=== PATIENT | female | born 2000 | race Caucasian/White ===

== ENCOUNTER 2022-12-01 22:05 | Emergency (ER) | payer MEDICARE, MEDICAID, SELFPAY ==
--- NOTE | ~2022-12-01 | CT_ITS ---
EXAMINATION: CT abdomen pelvis wo con DATE: 12/01/2022 22:57 INDICATION: Right flank pain TECHNIQUE: Computed tomography (CT) of the abdomen and pelvis was performed without intravenous contr ast. The dose-length product (DLP) was 1584.73 mGy-cm. Automated exposure control and iterative recon struction technique were employed. COMPARISON: None FINDINGS: Minimal dependent atelectasis is present in the lung bases. The heart size is normal. The l iver, spleen, pancreas, gallbladder, and adrenal glands are normal. The kidneys are unremarkable. No stones are identified in the kidneys, ureters, or bladder. No hydronephrosis or hydroureter. No patho logically enlarged abdominal or pelvic lymph nodes are identified. There is no free intraperitoneal g as or evidence of bowel obstruction. There is mild lumbar spondylosis. IMPRESSION: 1. No CT correlate for the patient's symptoms. No urolithiasis identified. Reviewed, dictated and finalized at location A.
[2022-12-01 22:07] VITALS: BP 152/102; PULSE 97; RESP 16; TEMP 36.2; O2SAT 98
[2022-12-01 22:52] LABS: Basophils Percent Auto 0.6 % (0.2-1.2); Eosinophils Absolute Auto 0.1 K/mm3 (0-0.3); Eosinophils Percent Auto 0.9 % (0-4.4); Hematocrit 41.8 % (37.0-47.0); Hemoglobin 14.8 g/dL (12.0-15.0); Immature Granulocyte Absolute 0.02 K/mm3 (0.00-0.031); Immature Granulocyte Percent A 0.3 % (0-0.5); Lymphocytes Absolute Auto 2.12 K/mm3 (0.9-3.2); Lymphocytes Percent Auto 30.9 % (18.3-44.2); Mean Corpuscular HGB Conc 35.4 g/dl (32-36); Mean Corpuscular Hemoglobin 31.3 pg (26-34); Mean Corpuscular Volume 88.4 fl (80-100); Mean Platelet Volume 10.8 fl (7.4-10.4); Monocytes Absolute Auto 0.5 K/mm3 (0.1-0.6); Monocytes Percent Auto 7.9 % (2.6-8.5); Neutrophils Absolute Auto 4.1 K/mm3 (1.3-6.7); Neutrophils Percent Auto 59.4 % (45.5-73.1); Platelet Count Result 232 k/mm3 (150-375); Red Blood Count 4.73 M/mm3 (4.2-5.4); White Blood Count 6.9 K/mm3 (4.5-10.0)
--- NOTE | 2022-12-01 23:03 | ED.GENADULT ---
HPI - General Adult General Chief complaint: Urogenital-Female Stated complaint: flank pain Time Seen by Provider: 12/01/22 22:19 History of Present Illness HPI narrative: Patient is a 22-year-old female who presents the emergency department with chief complaint of right flank pain. Patient reports that for several days she has had pain in the right flank area that radiates to the right lower quadrant patient states that she saw her primary care provider who is going to do a outpatient ultrasound on her but the patient states the pain has gotten worse and decided to come to the emergency department. Patient denies fever reports little bit of nausea reports she took an 800 mg ibuprofen prior to arrival in the emergency department and reported her pain is pretty well controlled Related Data Allergies Allergy/AdvReac Type Severity Reaction Status Date / Time No Known Allergies Allergy Verified 12/01/22 22:06 Review of Systems Review of Systems: A 10 system review of systems was completed on the patient and is negative except for what is stated in the HPI. Nursing and ancillary documentation was reviewed. Exam Narrative: GENERAL: Well-appearing, well-nourished, and in no acute distress. HEAD: Normocephalic, atraumatic. EYES: PERRLA and EOMI. ENT: Nares clear, no rhinorrhea or epistaxis. Mucous membranes moist. NECK: Supple. CHEST: Clear to auscultation. No respiratory distress. HEART: Regular rate and rhythm. No murmur heard. Normal peripheral pulses. ABDOMEN: Soft, nontender, nondistended, normal active bowel sounds. EXTREMITIES: Normal range of motion. No edema. SKIN: Warm, dry, no rash. NEURO: No focal deficits. Alert and oriented x3. PSYCH: Normal mood and affect. Course Vital Signs Vital signs: Vital Signs Temperature 36.2 C L 12/01/22 22:07 Pulse Rate 97 12/01/22 22:07 Respiratory Rate 16 12/01/22 22:07 Blood Pressure 152/102 H 12/01/22 22:07 Pulse Oximetry 98 12/01/22 22:07 Oxygen Delivery Room Air 12/01/22 22:07 Temperature 36.2 C L 12/01/22 22:07 Pulse Rate 97 12/01/22 22:07 Respiratory Rate 16 12/01/22 22:07 Blood Pressure 152/102 H 12/01/22 22:07 Pulse Oximetry 98 12/01/22 22:07 Oxygen Delivery Room Air 12/01/22 22:07 Medical Decision Making MDM Narrative Medical decision making narrative: Differential diagnosis includes pyelonephritis, kidney stone, UTI, ovarian cyst, intra-abdominal infection, Laboratory studies were obtained which showed a normal CBC CMP was within normal limits with the exception of an AST and ALT is being slightly elevated bilirubin was 0.7. Lipase was normal at 103 urinalysis showed 6-10 red blood cells trace leukocyte esterase but 0-5 white blood cells rare bacteria and negative nitrate. Vital Signs Vital Signs: Vital Signs Temperature 36.2 C L 12/01/22 22:07 Pulse Rate 97 12/01/22 22:07 Respiratory Rate 16 12/01/22 22:07 Blood Pressure 152/102 H 12/01/22 22:07 Pulse Oximetry 98 12/01/22 22:07 Oxygen Delivery Room Air 12/01/22 22:07 Temperature 36.2 C L 12/01/22 22:07 Pulse Rate 97 12/01/22 22:07 Respiratory Rate 16 12/01/22 22:07 Blood Pressure 152/102 H 12/01/22 22:07 Pulse Oximetry 98 12/01/22 22:07 Oxygen Delivery Room Air 12/01/22 22:07 Lab Data 12/01/22 22:47 12/01/22 22:47 Labs: Lab Results 12/01/22 12/01/22 12/01/22 Range/Units 22:34 22:47 22:47 WBC 6.9 (4.5-10.0) K/mm3 RBC 4.73 (4.2-5.4) M/mm3 Hgb 14.8 (12.0-15.0) g/dL Hct 41.8 (37.0-47.0) % MCV 88.4 (80-100) fl MCH 31.3 (26-34) pg MCHC 35.4 (32-36) g/dl RDW 12.0 (11.5-14.5) % Plt Count 232 (150-375) k/mm3 MPV 10.8 H (7.4-10.4) fl Immature Gran % (Auto) 0.3 (0-0.5) % Neut % (Auto) 59.4 (45.5-73.1) % Lymph % (Auto) 30.9 (18.3-44.2) % [place] % (Auto) 7.9 (2.6-8.5) % Eos % (Auto) 0.9 (0-4.4) % Baso % (Auto)
[2022-12-01 23:07] LABS: Appearance Urine Clear (Clear); Bacteria Urine Rare /hpf; Bilirubin Urine Negative (Negative); Blood Urine Negative (Negative); Color Urine Yellow (Yellow); Glucose Urine UA Negative (Negative); Ketones Urine Trace mg/dL (Negative); Leukocyte Esterase Ur Trace LEU/UL (Negative); Mucus Urine Present /lpf; Nitrate Urine Negative (Negative); Non Pathogenic Casts 0-2; Protein Urine Negative (Negative); Squamous Epithelial Cell Urine Few /hpf (Few); WBC Urine 0-5 /hpf; pH Urine 5.5 (5.0-9.0)
[2022-12-01 23:20] LABS: Add Urine Microscopic? YES
[2022-12-01 23:36] LABS: Alanine Aminotransferase 226 U/L (6-35); Albumin Level 4.4 g/dL (3.5-5.1); Alkaline Phosphatase 90 U/L (38-126); Anion Gap 8 mmol/L (8-16); Aspartate Amino Transferase 151 U/L (14-36); Bilirubin,Total 0.7 mg/dL (0.2-1.3); Blood Urea Nitrogen 15 mg/dL (7-17); Calcium 9.3 mg/dL (8.4-10.2); Carbon Dioxide 25 mmol/L (22-30); Chloride 106 mmol/L (98-107); Estimated CRCL calculation 141 ml/min; Estimated Glomerular Filt Rate > 60; Glucose 90 mg/dL (65-110); Lipase 103 U/L (23-300); Potassium 4.1 mmol/L (3.4-5.0); Sodium 139 mmol/L (137-145)
[2022-12-02] MEDS: KETOROLAC 30 MG/ML VIAL (*BKC) IM (00:03)
== END 2022-12-02 00:09 | disposition home or self-care (01) ==
PROVIDERS: Emergency Provider Emergency Medicine; PCP Physician Assistant
DX: R10.9 Unspecified abdominal pain (principal)
CPT/HCPCS: 36415; 74176; 80053; 81001; 81025; 83690; 85025; 96372; 99284; J1885

== ENCOUNTER 2023-08-28 10:21 | Outpatient (CLI) | payer MEDICARE, MEDICAID, SELFPAY ==
[2023-08-31 07:44] LABS: FSH 5.3 mIU/mL (***); LH 7.8 mIU/mL (***); Prolactin 12.6 ng/mL (***)
[2023-09-02 17:06] LABS: Testosterone Total 33 ng/dL (2-45)
[2023-09-05 12:37] LABS: DHEA-Sulfate 219 mcg/dL (18-391)
[2023-09-05 22:00] LABS: Estradiol, Ultrasensitive 137 pg/mL
== END 2023-08-28 10:22 | disposition home or self-care (01) ==
PROVIDERS: PCP Physician Assistant; Visit Provider Student in an Organized Health Care Education/Training Program
DX: E28.2 Polycystic ovarian syndrome (principal)
CPT/HCPCS: 36415; 82627; 82670; 83001; 83002; 84146; 84403

== ENCOUNTER 2023-09-30 12:51 | Emergency (ER) | payer MEDICARE, MEDICAID, SELFPAY ==
[2023-09-30 13:01] VITALS: BP 148/104; PULSE 120; RESP 18; TEMP 36.7; O2SAT 100
--- NOTE | 2023-09-30 13:47 | ED.FEMALEGU ---
HPI - Female Genitourinary General Chief complaint: Urogenital-Female Stated complaint: UTI Time Seen by Provider: 09/30/23 13:48 Source: patient and RN notes reviewed Mode of arrival: ambulatory Limitations: no limitations History of Present Illness HPI Narrative: 43-year-old female presents concern for right low back pain. Reports started 2 days ago when she was cleaning her house. Reports she was concerned of a UTI because she has UTIs that she has been hospitalized before in the past. She denies urine urgency, frequency, dysuria, hematuria. She denies fever, chills, nausea, abdominal pain, vomiting. She reports she can find a position of comfort when she has no pain in pain is elicited when she moves in certain ways. She denies loss of bowel or bladder function, perianal anesthesia, weakness in the extremity. MD elicited complaint: back pain Related Data Home Medications Medication Instructions Recorded Confirmed amlodipine 5 mg tablet 5 mg PO 08/27/23 08/27/23 dextroamphetamine-amphetamine ER PO 08/27/23 08/27/23 20 mg 24hr capsule,extend release fluoxetine 40 mg capsule 40 mg PO 08/27/23 08/27/23 fluticasone propionate 50 intranasal 08/27/23 08/27/23 mcg/actuation nasal spray,suspension levothyroxine 100 mcg tablet 100 mcg PO 08/27/23 08/27/23 lisinopril 40 mg tablet 40 mg PO 08/27/23 08/27/23 prazosin 1 mg capsule 1 mg PO 08/27/23 08/27/23 Allergies Allergy/AdvReac Type Severity Reaction Status Date / Time No Known Allergies Allergy Verified 09/30/23 13:21 Review of Systems Review of Systems: CONSTITUTIONAL: Denies malaise, chills, sweats, or fever. CARDIOVASCULAR: Denies chest pain, palpitations, or edema. RESPIRATORY: Denies cough or dyspnea. GASTROINTESTINAL: Denies abdominal pain, nausea, vomiting, diarrhea GENITOURINARY: Denies dysuria, frequency, urgency, suprapubic pressure. Denies flank pain or hematuria. SKIN: Denies rash or itching. MUSCULOSKELETAL: Reports right low back pain. Denies myalgia. All systems reviewed & are unremarkable except as noted in HPI and below PMFSH Past Medical History Medical History (Updated 09/30/23 @ 13:55 by Nancy Hernandez NP) Anxiety Depression Hypertension Hypothyroid PCOS (polycystic ovarian syndrome) Surgical History Surgical History (Updated 08/27/23 @ 13:47 by Mary Carmen Dangelo CMA) H/O wisdom tooth extraction History of delivery Family History Family History (Updated 08/27/23 @ 13:48 by Mary Carmen Dangelo CMA) Mother Cervical cancer Grandparent Ovarian cancer Social History Social History (Updated 08/27/23 @ 13:48 by Mary Carmen Dangelo CMA) Smoking status: Never smoker Alcohol intake: current Alcohol use details: rare Substance use: former Substance use type: marijuana Do You Feel Safe in your Home?: Yes Lack of Transportation: No Lack of Food: Never True Current Housing: I Have Housing Concerned About Future Housing: No Difficulty Paying Gas/Electric Bills: Decline to Answer Difficulty Paying for Meds: No Currently Unemployed: No Education: High School Diploma/GED Difficulty w/ Childcare or Family Care: No Living arrangements: with family Occupation/Education: unemployed Gender identity (if verbalized by the patient): Female Sexual Orientation (if Verbalized by the Patient): Straight or Heterosexual Comments At time of signature, agree with nursing past medical, surgical, social and family history. There is no relevant family history pertinent to the presenting complaint Exam Narrative: GENERAL: Well-appearing, well-nourished, and in no acute distress. HEAD: Normocephalic, atraumatic. EYES: PERRLA and EOMI. NECK: Supple. No lymphadenopathy. CHEST: Clear to auscultation. No respiratory distress. HEART: Regular rate and rhythm. Distal pulses palpable and equal, cap refill <3 seconds ABDOMEN: Soft, nontender, nondistended, normal active bowel sounds, no palpable or pu
== END 2023-09-30 14:10 | disposition home or self-care (01) ==
PROVIDERS: Emergency Provider Nurse Practitioner; PCP Physician Assistant
DX: M54.50 Low back pain, unspecified (principal); I10 Essential (primary) hypertension; E03.9 Hypothyroidism, unspecified; F41.8 Other specified anxiety disorders
CPT/HCPCS: 81003; 81025; 87086; 99213; G0463

== ENCOUNTER 2023-11-11 02:32 | Emergency (ER) | payer MEDICARE, MEDICAID, SELFPAY ==
[2023-11-11] VITALS (10 sets, daily range): BP systolic 105–145; BP diastolic 63–91; PULSE 98–108; RESP 9–25; TEMP 37.1; O2SAT 97–100
--- NOTE | ~2023-11-11 | XR_ITS ---
EXAMINATION: XR chest 1V portable DATE: 11/11/2023 04:06 INDICATION: Shortness of breath. TECHNIQUE: A single frontal view of the chest was obtained. COMPARISON: Chest 2 views 12/15/2018, CT abdomen and pelvis 12/01/2022 FINDINGS: The chest demonstrates clear lungs without pneumonia, pleural effusion, or pneumothorax. Th e heart size is normal. IMPRESSION: 1. No acute cardiopulmonary disease. Reviewed, dictated and finalized at location E.
[2023-11-11 03:07] LABS: Basophils Percent Auto 0.2 % (0.2-1.2); Eosinophils Absolute Auto 0.1 K/mm3 (0-0.3); Eosinophils Percent Auto 0.4 % (0-4.4); Hematocrit 46.1 % (37.0-47.0); Hemoglobin 16.5 g/dL (12.0-15.0); Immature Granulocyte Absolute 0.08 K/mm3 (0.00-0.031); Immature Granulocyte Percent A 0.4 % (0-0.5); Lymphocytes Absolute Auto 0.86 K/mm3 (0.9-3.2); Lymphocytes Percent Auto 4.4 % (18.3-44.2); Mean Corpuscular HGB Conc 35.8 g/dl (32-36); Mean Corpuscular Hemoglobin 30.8 pg (26-34); Mean Corpuscular Volume 86.2 fl (80-100); Mean Platelet Volume 10.6 fl (7.4-10.4); Monocytes Absolute Auto 1.1 K/mm3 (0.1-0.6); Monocytes Percent Auto 5.5 % (2.6-8.5); Neutrophils Absolute Auto 17.5 K/mm3 (1.3-6.7); Neutrophils Percent Auto 89.1 % (45.5-73.1); Platelet Count Result 287 k/mm3 (150-375); Red Blood Count 5.35 M/mm3 (4.2-5.4); Red Cell Distribution Width 12.2 % (11.5-14.5); White Blood Count 19.6 K/mm3 (4.5-10.0)
[2023-11-11 03:18] LABS: Alanine Aminotransferase 50 U/L (6-35); Albumin Level 5.1 g/dL (3.5-5.1); Alkaline Phosphatase 105 U/L (38-126); Anion Gap 13 mmol/L (8-16); Aspartate Amino Transferase 34 U/L (14-36); Bilirubin,Total 0.8 mg/dL (0.2-1.3); Blood Urea Nitrogen 19 mg/dL (7-17); Calcium 10.7 mg/dL (8.4-10.2); Carbon Dioxide 25 mmol/L (22-30); Chloride 101 mmol/L (98-107); Estimated CRCL calculation 115 ml/min; Estimated Glomerular Filt Rate > 60; Glucose 119 mg/dL (65-110); Lipase 103 U/L (23-300); Potassium 4.3 mmol/L (3.4-5.0); Sodium 139 mmol/L (137-145)
[2023-11-11] MEDS: ONDANSETRON INJ 4 MG/2 ML VIAL IV PUSH (03:43)
[2023-11-11] MEDS: SODIUM CHLORIDE 0.9% IV 1,000 ML 999 ML IV CONT ×2 (03:43→04:34)
[2023-11-11 03:45] LABS: Influenza A QL RT-PCR Negative (Negative); Influenza B QL RT-PCR Negative (Negative); RSV RNA, RT-PCR Negative (Negative); SARS-CoV-2 RNA PCR Negative (Negative)
[2023-11-11 03:56] LABS: Add Urine Microscopic? YES; Color Urine Yellow (Yellow)
[2023-11-11 03:57] LABS: Appearance Urine Clear (Clear)
[2023-11-11 03:58] LABS: Protein Urine 2+ mg/dL (Negative); Specific Grav Ur 1.025 (1.001-1.035)
[2023-11-11 03:59] LABS: Bilirubin Urine 1+ (Negative); Blood Urine Negative (Negative); Glucose Urine UA Negative (Negative); Ketones Urine 4+ mg/dL (Negative); Leukocyte Esterase Ur 1+ LEU/UL (Negative); Nitrate Urine Negative (Negative); Urobilinogen Urine 0.2 mg/dL (<2.0)
[2023-11-11 04:03] LABS: Bacteria Urine 4+ /hpf; Mucus Urine Present /lpf; Need Manual Microscopic Reviewed; Squamous Epithelial Cell Urine Many /hpf (Few); WBC Urine 51-100 /hpf (0-3)
--- NOTE | 2023-11-11 05:14 | ED.GENADULT ---
HPI - General Adult General Chief complaint: Nausea/Vomiting/Diarrhea Stated complaint: nausea/vomiting/diarrhea/sob Time Seen by Provider: 11/11/23 03:27 History of Present Illness HPI narrative: Patient is a 23-year-old female who presents to the emergency department this morning complaining of nausea and vomiting. Patient states symptoms started approximately around midnight and she has not been able to keep down any food or drinks since then. Patient initially was concerned that she may be going into sepsis again stating that in July she had urosepsis. Patient states that she tends to get recurrent UTIs and does not have any symptoms until they become kidney infections. Patient is currently scheduled to see a urologist soon for further evaluation. She is currently denying any flank pain, any dysuria or hematuria, any abdominal pain, any fevers or chills at home. She admits some mild lightheadedness but otherwise is denying any additional symptoms. Patient states that around midnight when she was excessively vomiting she became short of breath, however, her shortness breath has somewhat resolved. Patient's state that she did think about food poisoning tell son also started vomiting last night, early this morning. She admits that they did eat food that was prepared by her son's school which could be the cause. She is currently denying any additional symptoms at this time. There are no other modifying, alleviating, or precipitating factors. Related Data Home Medications Medication Instructions Recorded Confirmed amlodipine 5 mg tablet 5 mg PO 08/27/23 10/08/23 fluoxetine 40 mg capsule 40 mg PO 08/27/23 10/08/23 fluticasone propionate 50 intranasal 08/27/23 10/08/23 mcg/actuation nasal spray,suspension levothyroxine 100 mcg tablet 100 mcg PO 08/27/23 10/08/23 lisinopril 40 mg tablet 40 mg PO 08/27/23 10/08/23 prazosin 1 mg capsule 1 mg PO 08/27/23 10/08/23 atomoxetine 40 mg capsule 40 mg PO 10/08/23 10/08/23 Allergies Allergy/AdvReac Type Severity Reaction Status Date / Time No Known Allergies Allergy Verified 11/11/23 02:45 Review of Systems Review of Systems: All systems are reviewed and are negative unless stated otherwise in the HPI. [facility] Past Medical History Medical History Anxiety Depression Hypertension Hypothyroid PCOS (polycystic ovarian syndrome) Surgical History Surgical History H/O wisdom tooth extraction History of delivery Family History Family History Mother Cervical cancer Grandparent Ovarian cancer Social History Social History Smoking status: Never smoker Alcohol intake: current Alcohol use details: rare Substance use: former Substance use type: marijuana Do You Feel Safe in your Home?: Yes Lack of Transportation: No Lack of Food: Never True Current Housing: I Have Housing Concerned About Future Housing: No Difficulty Paying Gas/Electric Bills: Decline to Answer Difficulty Paying for Meds: No Currently Unemployed: No Education: High School Diploma/GED Difficulty w/ Childcare or Family Care: No Living arrangements: with family Occupation/Education: unemployed Gender identity (if verbalized by the patient): Female Sexual Orientation (if Verbalized by the Patient): Straight or Heterosexual Exam Narrative: General: Alert, awake, afebrile, in no acute distress. HEENT: PERRL, no rhinorrhea, no post nasal drip, oropharynx clear. Neck: Trachea midline, no JVD, no lymphadenopathy. Cardiovascular: Regular rate and rhythm, no murmurs, rubs or gallops, no peripheral edema. Respiratory: Clear to auscultation bilaterally, no tachypnea, no wheezing, no rhonchi, no rubs, no respiratory distress. Abdomen: Soft, no
[2023-11-11] MEDS: PANTOPRAZOLE SODIUM IV 40 MG VIAL IV PUSH (05:27)
[2023-11-11] MEDS: diphenhydrAMINE HCl INJ 50 MG/ML VIAL 25 MG IV PUSH (05:33)
[2023-11-11] MEDS: METOCLOPRAMIDE HCL INJ 10 MG/2 ML VIAL IV PUSH (05:33)
== END 2023-11-11 06:44 | disposition home or self-care (01) ==
PROVIDERS: Emergency Provider Emergency Medicine; PCP Physician Assistant
DX: R11.2 Nausea with vomiting, unspecified (principal); D72.829 Elevated white blood cell count, unspecified; Z20.822 Contact with and (suspected) exposure to COVID-19; I10 Essential (primary) hypertension; E03.9 Hypothyroidism, unspecified; E28.2 Polycystic ovarian syndrome; F41.9 Anxiety disorder, unspecified; F32.A Depression, unspecified; Z79.84 Long term (current) use of oral hypoglycemic drugs
CPT/HCPCS: 36415; 71045; 80053; 81001; 81025; 83690; 85025; 87086; 87637; 96361; 96365; 96375; 99284; C9113; J0696; J1200; J2405; J2765; J7030

== ENCOUNTER 2024-04-16 12:15 | Outpatient (RCR) | payer MEDICARE, MEDICAID, SELFPAY ==
--- NOTE | 2024-02-28 11:58 | OPREHPOC ---
Outpatient Therapy Plan of Care This is a Multidisciplinary Plan of Care that may contain components documented by all disciplines (PT, OT, and ST.) PT Problem 1 PT Problem #1 Knowledge Deficit PT Goal 1 Goal *indep with HEP * correct body mechanics with lifting waist/floor height & simulated home tasks--laundry and sweeping Target Visit 6 PT Problem 2 PT Problem #2 Pain PT Goal 1 Goal 1* pt report pain at worst of 5/10 2* self assessment Oswetsry rating of 34% limitation in activity level 3* pt report with sleeping, awaken 1x / night due to pain Target Visit 6 PT Problem 3 PT Problem #3 Impaired Strength PT Goal 1 Goal increase trunk and hip strength, to improve posture and stability to spine: 1* mat strengthening exercises x 20 reps 2* single leg standing R x 20 seconds 3* single leg standing L x 20 seconds Target Visit 6
--- NOTE | 2024-02-28 11:58 | PTOPEVAL1 ---
Assessment and note entered by Darcy Savage PT Evaluation Information Assessment Status Evaluation Diagnosis low back pain ICD-10 Condition Codes (PT) Pain in low back M54.50 Onset January 2024 Subjective Information more pain and could not walk, went to ER; x ray: degenerative disc disease of lumbar; activity: disabled, not work outside of home; is able to do everything at home, but cause her more pain; have had chiropractor treatment in past-- got adjustments to neck and back; NO PT in the past; Reported Pain Level Pain Score Self Report Additional Pain Score Comments pain range in the past week: 1-8/10; R and L lumbar- center of low back R>L; lipoma scar over R lower lumbar increase pain: home chores- laundry, decrease pain: rest, sit, lie down, heat, ice; ibuprofen 800 mg; marjuania; home stim unit with sleeping, awaken 2-3x/night due to back pain; tends to sleep prone; have new sleep apnea machine that trying to use Assessment PT Clinical Summary Deann has the diagnosis of low back pain, not radicular. Pain is chronic and she has never had PT treatment. Self assessment Oswestry rating of 44% limitation in activity level. Sleep and activity tolerances are disrupted due to pain. She does not work outside of the home, and has a 5 year old son. With the evaluation: pain is increased with standing flexion > extension, supine R and L hip flexion and IR motions; supine SLR on R is decreased and painful; weakness over trunk and hips, with poor standing position of spine. Skilled PT services are indicated for modalities to decrease pain, therapeutic exercises to increase strength and education for HEP and posture /body mechanics. Plan of Care Interventions Hot Pack/Cold Pack,Manual Therapy,Mechanical Traction,Neuro Re-education,Patient Education,Therapeutic Activities,Therapeutic Exercise,Ultrasound,Other Other Interventions taping, IASRACHEL PT Services Indicated Yes
--- NOTE | 2024-04-06 11:49 | PTOPPROG ---
Assessment and note entered by Darcy Savage, PT Progress Report Assessment Status Progress Diagnosis low back pain ICD-10 Condition Codes (PT) Pain in low back M54.50 Onset January 2024 Subjective Information having a bad day today- did cleaning and house tasks and worse; the stretches do help her back in the morning; am not hurting as much overall since coming for therapy; want to see the dr and get an MRI to see what is going on with my back; want to continue with therapy to help my back more PAIN: range in the past week 03/28; R > L lumbar- sacral increase pain: more activity; bending forward decrease pain: ice, lie down and rest; take meds with sleeping, awaken 1x/night due to back pain; toss/turn during night activity tolerance of about 60 min, then have to sit and rest; Assessment PT Clinical Summary Deann has received a total of 5 PT sessions. Compared to the initial evaluation: pain rating same at ; self assessment Oswestry rating from 44 to 32% limitation in activity level; reported sleeping tolerance from awakening 2-3 x to 1x/night; increase strength of trunk and hips; poor standing and gait pattern of trunk and hips increase pain in R hip with supine R hip flexion and IR motions and SLR to 45'/ L hip without pain increase; education for HEP, body mechanics and pain management techniques. The goals were partially met. Continue PT treatment. Plan of Care Interventions Electrical Stimulation,Hot Pack/Cold Pack,Manual Therapy,Neuro Re-education,Patient Education,Therapeutic Activities,Therapeutic Exercise,Ultrasound,Other Other Interventions taping, IASTM PT Services Indicated Yes Treatment Frequency and 1-2x/wk x 6 visits Duration These treatments will address the objective and functional deficits as defined above. The patient will be advanced safely and appropriately in order for the patient to progress towards his/her prior level of function. Additional exercises will be introduced and as well as a comprehensive home exercise program upon discharge, if needed, ?to ensure carryover of func
--- NOTE | 2024-04-06 11:50 | OPREHPOC ---
Outpatient Therapy Plan of Care This is a Multidisciplinary Plan of Care that may contain components documented by all disciplines (PT, OT, and ST.) PT Problem 1 PT Problem #1 Knowledge Deficit PT Goal 1 Goal / Goal Update *indep with HEP * correct body mechanics with lifting waist/floor height & simulated home tasks--laundry and sweeping Target Visit 6 Progress Partially Met PT Goal 2 Goal / Goal Update 04-06-24 progress goal met for HEP continue towards goals for further education Target Visit 11 PT Problem 2 PT Problem #2 Pain PT Goal 1 Goal / Goal Update 1* pt report pain at worst of 5/10 2* self assessment Oswetsry rating of 34% limitation in activity level 3* pt report with sleeping, awaken 1x / night due to pain Target Visit 6 Progress Partially Met PT Goal 2 Goal / Goal Update 04-06-24 progress goal 2 & 3 met NEW GOALS: 1* pain rating of 5/10 at worst 2* pt report activity tolerance of 90 minutes before have to sit down and rest 3* Oswestry self assessment rating of 28% limitation in activiy Target Visit 11 PT Problem 3 PT Problem #3 Impaired Strength PT Goal 1 Goal / Goal Update increase trunk and hip strength, to improve posture and stability to spine: 1* mat strengthening exercises x 20 reps 2* single leg standing R x 20 seconds 3* single leg standing L x 20 seconds Target Visit 6 Progress Partially Met PT Goal 2 Goal / Goal Update 04-06-24 progress goal #1 partially met; improved with 2&3 but not met continue towards goals add 4 goal: 2 minute walking test distance of 400 '
--- NOTE | 2024-04-09 14:20 | PCPTNOTE ---
Pt did not show stating she did not know she had any appt today. She is rescheduled for tomorrow.
--- NOTE | 2024-04-28 14:04 | PCPTNOTE ---
No show no call, reason unknown. DONNY
--- NOTE | 2024-05-01 12:01 | PCPTNOTE ---
Called and cancelled, panic attack unable to attend. AKS
--- NOTE | 2024-05-05 12:50 | PCPTNOTE ---
No call No show, reason unknown. AKLaila
--- NOTE | 2024-05-08 11:03 | PTOPDC ---
Assessment and note entered by Darcy Savage, PT Discharge Report Assessment Status Discharge - Pt Not Present Diagnosis low back pain ICD-10 Condition Codes (PT) Pain in low back M54.50 Onset January 2024 Subjective Information pt was not seen this date; Assessment PT Clinical Summary Deann has received 6 PT sessions, from February 27 to April 16. She has had a total of 4 no shows and 1 call/ cancel appointment. Discharge PT due to her not attending appointments. The goals were not addressed. Plan of Care PT Services Indicated No
== END 2024-05-08 16:29 | disposition home or self-care (01) ==
LOC: ANHPT 12:15
PROVIDERS: PCP Physician Assistant; Visit Provider Physician Assistant
DX: M54.50 Low back pain, unspecified (principal)
CPT/HCPCS: 97014; 97110; 97140; 97161; 97530; G0283

== ENCOUNTER 2024-09-26 15:23 | Emergency (ER) | payer MEDICARE, MEDICAID, SELFPAY ==
[2024-09-26] VITALS (13 sets, daily range): BP systolic 123–176; BP diastolic 81–106; PULSE 76–109; RESP 15–20; TEMP 36.6–37.4; O2SAT 95–100
--- NOTE | ~2024-09-26 | XR_ITS ---
EXAMINATION: XR chest 2V Exam Date/Time: 09/26/2024 15:52 PLASTICS ENGINEERING TEACHER HISTORY: chest pain, DIZZINESS, SOB Comparison: 11/11/2023. RESULT: Lines, tubes, and devices: None. Lungs and pleura: Clear. Cardiomediastinal silhouette: Stable. Other: No acute osseous or upper abdominal finding. IMPRESSION: No acute cardiopulmonary process. Reviewed, dictated and finalized at location K. TICS ENGINEERING TEACHER
--- OUTSIDE RECORDS SUMMARY | 2024-09-26 15:25 | XMS_ITS | Data Portability ---
Author Organization [place] - [facility], Main Office Address [address] [place] [address] Assessment Encounter Date Assessment Date Assessment LastModified by Organization Details LastModified Time 10/08/2023 10/08/2023 Assessment: Mild OSAHS, AHI = 12 Early REM onset PLMD Plan: The following were reviewed and explained to the patient: [facility] night 1 sleep study 03/20/22 sleep onset = 51 minutes, REM onset = 56.5 minutes, AHI = 12, supine AHI = 18, REM AHI = 42 [facility] night 2 sleep study 05/22/22 Wang & Gabrielle medium Eson 2 nasal mask @ 7 cmH2O, PLMI = 9 Ferritin 06/04/22 198 ng/mL ESR 06/04/22 22 mm/hr Elevation in periodic limb movement index may be contributed by fluoxetine. Non-pharmacologic therapy options for periodic limb movement disorder include avoidance of aggravating drugs and substances, mental alerting activities, short daily hemodialysis for patients in renal failure, exercise, leg massage, stretching calf muscles, use of a weighted blanket and applied heat. Patient will cut down on caffeine intake. BUN, Creatinine, Vitamin E, Vitamin B12, RBC folate, Iron, TIBC, Magnesium, Hgb and Hct levels are within normal limits. We will hold off on dopaminergic therapy for now. PAP compliance downloaded and interpreted x 20 minutes. Data reviewed and explained to the patient. Average apnea/hypopnea index (AHI) is 0.7. Patient used PAP > 4 hours 20% of the time. PAP is set at 7 cmH2O. PAP will remain at 7 cmH2O. Oxygen supplementation: none Patient is benefiting from PAP therapy. Encouraged patient to maintain PAP use more than 70% of the time. Statement of PAP use and benefits will be sent to the home care store. Educated the patient on problems and solutions associated with positive airway pressure (PAP) use. Difficulty tolerating pressure, mask leaks, intolerance of interface, nasal congestion, claustrophobic response, dry mouth, and unintentional mask removal during sleep were covered. Patient experiences claustrophobic response. Patient will practice wearing PAP mask daily while awake and undergo PAP desensitization. We will check fit of patient's mask and provide a sleeker alternative as necessary. Provided the patient with a list of local home care stores where positive airway pressure (PAP) units, accouterments, and services are available. Home care store selection is based on patient's insurance carrier. Patient will setup an appointment with [facility] for supplies and pressure adjustments. A major predictor of success with use of PAP is follow-up with both the respiratory supplier and the treating physician. The respiratory supplier optimally will follow-up within two weeks after starting use while the treating physician optimally will follow-up within 90 days after starting therapy to assess adherence and effectiveness of treatment. The download results can show the treating physician information about adherence to treatment, residual AHI while on treatment and presence of large mask leakage. This information is especially helpful if the patient has residual sleepiness despite treatment. General information on sleep disorder breathing, evaluation of sleep disordered breathing, treatment with PAP therapy, and living with PAP therapy were covered. We discussed with the patient the impact of weight on: Sleep disordered breathing Hypertension DM ASHANTI We discussed with the patient the benefit of PAP therapy on: Sleep disordered breathing Panic disorder Hypertension DM ASHANTI Educated the patient on sleep hygiene measures. Relaxing rituals to rest easy, understanding foods with positive and negative impact on sleep, creating a peaceful sleep environment, timing of exercise, using herbal sleep aids, and practicing sleep-friendly meditation were covered. To determine how much sleep is needed, the patient will assess where she falls on the spectrum, examine what lifestyle factors such as work schedules and stress are affecting the quality and quantity of sleep. In general, adults need 7-9 hours of sleep. Educated the patient regarding foods that promote sleep. These include but are not limited to cherries, bananas, toast, oatmeal, and warm milk. Educated the patient regarding foods and drinks to avoid before bedtime. These include but are not limited to aged cheese, chocolate, spicy foods, tomato-based sauces, soy, ginseng tea and processed meat. Advocated influenza vaccination annually and pneumonia vaccination GEORGE. Advocated weight loss through diet and exercise. Patient's ideal body weight according to height and gender is up to 140 lbs. Encouraged patient to adjust caloric intake to maintain/achieve ideal body weight, emphasizing on fruits, vegetables, whole grains, and fat-free or low-fat products. These include lean meats, poultry, fish, beans, eggs, and nuts and foods that are low in saturated fats, trans-fats, cholesterol, salt (sodium), and glycemic index. Stressed the importance of regular exercise up to the patient's capacity limits. In this case, we recommend 20 min daily walking, 2 days a week of resistance training. Patient to monitor BP daily and bring records to PCP for further management. Follow-up: 1 year, September 2023 [email or web address] Not available 10/08/2023 16:16:47 Plan of Treatment Reminders Order Date Submit Date Provider Last Modified By Organization Details Last Modified Time Details Appointments Any 30 025 11:00AM Les Pace MD Not available Not available Not available Lab None record ed. Referral None record ed. Procedures None record ed. Surgeries None record ed. Imaging None record ed. Medication Orders None record ed. Patient TargetsNo targets recorded. Patient InstructionsNo instructions recorded. Reason for Referral None Reported. Results Created Date Observation Date Name Description Value Unit Range Abnormal Flag Note LastModifiedBy Organization Detail LastModifiedTime 03/22/20 22 03/20/2022 polys omnog faith , diagn ostic (PROC ) No observ ation record ed. [id number] [facility] [address] [place], [address], 10/17/2022 22:07:54 05/24/20 22 05/22/2022 polys omnog ramon, titra tion study No observ ation record ed. [id number] [facility] [address] [place], [address], 10/17/2022 22:07:54 Result Notes None recorded. Problems Name Problem SNOMED Code Status Onset Date Resolution Date Notes Provider Name and Address Organization Details Recorded Time Obstructive sleep apnea syndrome 31900633 Active 2023 Les Pace MD [address] [facility] [address], [place], [address], [facility] [id number] [facility] 4 16:16:50 Periodic limb movement disorder 116024756 Active 2023 Les Pace MD [address] [facility], [facility] [address], [place], [address], [facility] 16:17:09 Notes:Medical History: Panic disorder Bruxism Early REM onset Obesity with mild OSAHS, AHI = 12, 03/20/22, on CPAP c/o IVRC Hypothyroidism Hypertension T2DM ASHANTI PLMD Procedure History: Right lower back lipoma excision 2020 Problem Notes None recorded. Procedures Surgical History Date Name Laterality Status Provider Name and Address Organization Details Recorded Time other completed Not Available [facility] 22:05:55 Imaging Results Imaging Date Name Status [facility]Modified by [facility] Details LastModified Time 03/20/2022 polysomnography , diagnostic (PROC) completed [id number] [facility] [address] [place], [address], 10/17/2022 22:07:54 05/22/2022 polysomnogram, titration study completed [id number] [facility] [address] [place], [address], 10/17/2022 22:07:54 Procedure Notes None recorded. Medical Equipment None Reported. Allergies No known drug allergies Medications Name Sig Start Date Stop Date Status Note LastModified by Organization Details LastModified Time fluoxetine 40 mg capsule active Not Available Not Available Not Available cyclobenzap rine 10 mg tablet 10/08 completed Not Available Not Available Not Available amoxicillin 500 mg capsule TAKE 1 CAPSULE BY MOUTH EVERY 8 HOURS DIRECTED FOR 7 DAYS 10/08 completed Not Available Not Available Not Available metformin 500 mg tablet active Not Available Not Available Not Available albuterol sulfate 2.5 mg/3 mL (0.083 %) solution for nebulizatio n active Not Available Not Available Not Available cetirizine 10 mg tablet TAKE 1 TABLET BY MOUTH ONCE DAILY DIRECTED FOR 30 DAYS 02/28 completed Not Available Not Available Not Available ibuprofen 800 mg tablet active Not Available Not Available Not Available prazosin 1 mg capsule active Not Available Not Available N ot Available ondansetron HCl 8 mg tablet 10/17 /2022 completed Not Available Not Available Not Available ondansetron HCl 4 mg tablet 10/08 completed Not Available Not Available Not Available acetaminoph en 300 mg-codeine 30 mg tablet 10/08 completed Not Available Not Available Not Available ciprofloxac in 250 mg tablet 10/08 completed Not Available Not Available Not Available amlodipine 5 mg tablet active Not Available Not Available Not Available amoxicillin 500 mg tablet 10/08 completed Not Available Not Available Not Available levothyroxi ne 100 mcg tablet TAKE 1 TABLET BY MOUTH ONCE DAILY active Not Available Not Available No t Available oxycodone-a cetaminophe n 5 mg-325 mg tablet TAKE 1 TABLET BY MOUTH EVERY 6 TO 8 HOURS NEEDED 01/30 completed Not Available Not Available Not Available amoxicillin 875 mg tablet TAKE 1 TABLET BY MOUTH EVERY 8 HOURS DIRECTED FOR 7 DAYS 01/30 completed Not Available Not Available Not Available dextroamphe tamine-amph etamine ER 20 mg 24hr capsule,ext end release TAKE 1 CAPSULE BY MOUTH ONCE DAILY 10/08 completed Not Available Not Available Not Available benzonatate 100 mg capsule TAKE 1 CAPSULE BY MOUTH THREE TIMES DAILY NEEDED FOR COUGH 02/28 completed Not Available Not Available Not Available cephalexin 500 mg capsule 10/08 completed Not Available Not Available Not Available metformin 1,000 mg tablet TAKE 1 TABLET BY MOUTH TWICE DAILY 01/30 completed Not Available Not Available Not Available cabergoline 0.5 mg tablet TAKE 1 2 (ONE HALF) TABLET BY MOUTH TWICE A WEEK 02/28 completed Not Available Not Available Not Available ibuprofen 400 mg tablet 02/28 completed Not Available Not Available Not Available diclofenac potassium 50 mg tablet 10/08 completed Not Available Not Available Not Available diclofenac sodium 75 mg tablet,parul yed release TAKE ONE TABLET BY MOUTH TWICE DAILY with meals 01/30 completed Not Available Not Available Not Available montelukast 10 mg tablet 01/30 completed Not Available Not Available Not Available lisinopril 10 mg-hydrochl orothiazide 12.5 mg tablet TAKE 1 TABLET BY MOUTH IN THE MORNING 10/08 completed Not Available Not Available Not Available levofloxaci n 500 mg tablet TAKE 1 TABLET BY MOUTH EVERY 24 HOURS WITH MEALS FOR 10 DAYS 02/28 completed Not Available Not Available Not Available methylpredn isolone 4 mg tablets in a dose pack 01/30 completed Not Available Not Available Not Available labetalol 100 mg tablet TAKE 1 TABLET BY MOUTH TWICE DAILY DIRECTED 01/30 completed Not Available Not Available Not Available albuterol sulfate HFA 90 mcg/actuati on aerosol inhaler INHALE 2 PUFFS BY MOUTH EVERY 4 HOURS NEEDED active Not Available Not Available No t Available dextroamphe tamine-amph etamine ER 30 mg 24hr capsule,ext end release 10/08 completed Not Available Not Available Not Available norethindro ne (contracept monica) 0.35 mg tablet active Not Available Not Available No t Available ketoconazol e 2 % topical cream 06/04 completed Not Available Not Available Not Available lisinopril 40 mg tablet active Not Available Not Available Not Available fluoxetine 20 mg capsule TAKE 2 CAPSULES BY MOUTH ONCE DAILY IN THE MORNING 01/30 completed Not Available Not Available Not Available fluticasone propionate 50 mcg/actuati on nasal spray,suspe nsion active Not Available Not Available Not Available prazosin 2 mg capsule 10/08 completed Not Available Not Available Not Available fluticasone propionate 110 mcg/actuati on HFA aerosol inhaler 10/08 completed Not Available Not Available Not Available spironolact one 50 mg tablet active Not Available Not Available Not Available amoxicillin 875 mg-potassiu m clavulanate 125 mg tablet 10/08 completed Not Available Not Available Not Available atomoxetine 40 mg capsule active Not Available Not Available Not Available nitrofurant oin monohydrate /macrocryst als 100 mg capsule 10/08 completed Not Available Not Available Not Available calcium 600 mg (as carbonate)- vitamin D3 10 mcg (400 unit) tablet TAKE 1 TABLET BY MOUTH TWICE DAILY 02/28 completed Not Available Not Available Not Available Pulmicort Flexhaler 90 mcg/actuati on breath activated INHALE 2 PUFFS BY MOUTH TWICE DAILY DIRECTED FOR 30 DAYS 01/30 completed Not Available Not Available Not Available diclofenac 1 % topical gel APPLY 2 GRAMS TOPICALLY TO THE AFFECTED AREA(S) 4 TIMES DAILY NEEDED 02/28 completed Not Available Not Available Not Available OneTouch Verio test strips test blood sugar EVERY DAY 01/30 completed Not Available Not Available Not Available Victoza 2-Arian 0.6 mg/0.1 mL (18 mg/3 mL) subcutaneou s pen injector inject 1.2 MG under the skin EVERY DAY 06/18 completed Not Available Not Available Not Available Contrave 8 mg-90 mg tablet,exte nded release TAKE ONE TABLET EVERY MORNING FOR SEVEN DAYS THEN TAKE ONE TABLET TWICE DAILY FOR SEVEN DAYS THEN TAKE TWO TABLETS EVERY MORNING AND TAKE ONE TABLET IN THE EVENING FOR SEVEN DAYS TAKE TWO TABLETS TWICE DAILY thereafte r 10/08 completed Not Available Not Available Not Available OneTouch Verio Flex Meter test EVERY DAY 01/30 completed Not Available Not Available Not Available TRUEplus Pen Needle 31 gauge x 3/16 USE TO inject inulin ONCE daily 06/04 completed Not Available Not Available Not Available Ozempic 0.25 mg or 0.5 mg (2 mg/1.5 mL) subcutaneou s pen injector 10/08 completed Not Available Not Available Not Available OneTouch Delica Plus Lancet 30 gauge test blood sugar EVERY DAY 01/30 completed Not Available Not Available Not Available Annovera 0.15 mg-0.013 mg/24 hr vaginal ring 02/28 completed Not Available Not Available Not Available EluRyng 0.12 mg-0.015 mg/24 hr vaginal ring INSERT 1 VAGINALLY EVERY MONTH 10/08 completed Not Available Not Available Not Available Tab-A-Sarah 400 mcg tablet TAKE 1 TABLET BY MOUTH ONCE DAILY 01/30 completed Not Available Not Available Not Available Ozempic 0.25 mg or 0.5 mg (2 mg/3 mL) subcutaneou s pen injector 10/08 completed Not Available Not Available Not Available Vitals Date Recorded Body mass index (BMI) Body mass index (BMI) Body mass index (BMI) Body mass index (BMI) Heart rate Heart rate Heart rate Body height Body height Body height Body height Oxygen saturation Oxygen saturation in Arterial blood by Pulse oximetry Oxygen saturation Oxygen saturation in Arterial blood by Pulse oximetry Oxygen saturation Oxygen saturation in Arterial blood by Pulse oximetry Oxygen saturation Oxygen saturation in Arterial blood by Pulse oximetry Heart rate Heart rate Heart rate Heart rate Respiratory rate Respiratory rate Respiratory rate Body temperature Body temperature Body temperature Body temperature Body weight Body weight Body weight Body weight Systolic blood pressure Diastolic blood pressure Systolic blood pressure Diastolic blood pressure Systolic blood pressure Diastolic blood pressure Systolic blood pressure Diastolic blood pressure Provider Name and Address Organization Details Last Updated DateTime 3 44.1 kg/m2 44.4 kg/m2 43.4 kg/m2 44.4 kg/m2 99 /min 95 /min 89 /min 167.64 cm 167.64 cm 167.64 cm 167.64 cm 98 % 98 % 96 % 96 % 98 % 98 % 97 % 97 % 73 /min 99 /min 95 /min 89 /min 15 /min 14 /min 13 /min 95.9 [degF] 97.9 [degF] 97.7 [degF] 98.3 [degF] 009052. 72 g 458411. 62 g 327557. 35 g 861960. 9 g 138 mm[Hg] 90 mm[Hg] 134 mm[Hg] 78 mm[Hg] 122 mm[Hg] 88 mm[Hg] 126 mm[Hg] 86 mm[Hg] Not Available [facility] 3 22:06:21 Date Recorded Body height Body mass index (BMI) Body weight Body temperature Oxygen saturation Oxygen saturation in Arterial blood by Pulse oximetry Systolic blood pressure Diastolic blood pressure Provider Name and Address Organization Details Last Updated DateTime 4 167.64 cm 39.9 kg/m2 506775. 75 g 98 [degF] 98 % 98 % 106 mm[Hg] 66 mm[Hg] Naa Stevenson MA [employer] 4 15:43:46 Date Recorded Heart rate Heart rate Respiratory rate Provider Name and Address Organization Details Last Updated DateTime 10/08/2023 101 /min 101 /min 15 /min Les Pace MD [address] [facility], [facility] [address], [place], [address], [employer] 10/08/2023 16:22:36 Social History Question Answer Notes LastModified by Organizat ion Details LastModified Time Tobacco Smoking Status Former Smoker Not Available [facility] 10/17/2022 22:05:46 What Is Your Level Of Alcohol Consumption? Occasional [id number] Information not available 10/17/2022 What Is Your Level Of Caffeine Consumption? Occasional [id number] Information not available 10/17/2022 In The 14 Days Before Symptom Onset, Have You Had Close Contact With A Laboratory-confi rmed COVID-19 While That Case Was Ill? No [id number] Information not available 10/17/2022 In The 14 Days Before Symptom Onset, Have You Had Close Contact With A Person Who Is Under Investigation For COVID-19 While That Person Was Ill? No [id number].[id number] [id number] Information not available 10/17/2022 What Type Of Diet Are You Following? REGULAR MIGRATION.44290 [id number] Information not available 10/17/2022 Do You Or Have You Ever Used E-cigarettes Or Vape? Never Used Electronic Cigarettes [id number] Information not available 10/17/2022 Do You Have An Electrostatic Air Filter? No [id number].09721 [id number] Information not available 10/17/2022 What Is Your Occupation? None [id number].[id number] Information not available 10/17/2022 When Did You Quit Smoking? 1-5yearssincelastci yudith MIGRATION.[id number] Information not available 10/17/2022 Are There Any Guns Present In Your Home? No MIGRATION.46967 [id number] Information not available 10/17/2022 Do You Have A Humidifier? No MIGRATION.75207 [id number] Information not available 10/17/2022 Where Do You Live? [place] MIGRATION.38021 96225 Information not available 10/17/2022 Do You Have Moisture Problems In Your Home? Yes MIGRATION.08972 40491 Information not available 10/17/2022 What Was The Date Of Your Most Recent Tobacco Screening? 10/08/2023 Information not available 10/08/2023 Do You Have Any Pets? Yes MIGRATION.49074 11002 Information not available 10/17/2022 What Is Your Relationship Status? Information not available 10/08/2023 Do You Use Your Seat Belt Or Car Seat Routinely? Yes Information not available 10/08/2023 Do You Have Smoke And Carbon Monoxide Detectors In Your Home? No MIGRATION.05723 [id number] Information not available 10/17/2022 At What Age Did You Start Smoking Tobacco? 9 Information not available 10/08/2023 Are You Passively Exposed To Smoke? No MIGRATION.92588 18222 Information not available 10/17/2022 Do You Or Have You Ever Used Smokeless Tobacco? Never Used Smokeless Tobacco MIGRATION.28434 83610 Information not available 10/17/2022 Do You Feel Stressed (tense, Restless, Nervous, Or Anxious, Or Unable To Sleep At Night)? [id number] Information not available 10/08/2023 Do You Use Any Illicit Or Recreational Drugs? No MIGRATION.33064 [id number] Information not available 10/17/2022 Do You Use Sunscreen Routinely? Yes MIGRATION.03136 [id number] Information not available 10/17/2022 How Many Years Have You Smoked Tobacco? 8 Information not available 10/08/2023 Have You Recently Traveled Abroad? No MIGRATION.00716 23776 Information not available 10/17/2022 Do You Or Have You Ever Used Any Other Forms Of Tobacco Or Nicotine? No Information not available 10/08/2023 Sex: Unknown Functional Status None recorded. Mental Status None recorded. Family History Relationship Description Onset Age of this Age Resolved Age Notes LastModified by Organization Details LastModified Time Father Hypertensive disorder [id number] Not available 10/17/2022 22:05:57 Father Diabetes mellitus [id number] Not available 10/17/2022 22:05:57 Maternal Grandmother Diabetes mellitus [id number] Not available 10/17/2022 22:05:57 Mother Epilepsy [id number] Not available 10/17/2022 22:05:57 Medical History Condition Response THYROID DISEASE Y ANXIETY DISORDER Y DEPRESSION (INCLUDING POST ) Y HEARTBURN / REFLUX Y HYPERTENSION Y ASTHMA Y Gynecological HistoryNo gynecological history recorded. Obstetrics History GPAL:G 0 P 0 0 0 0 Past Encounters Encounter ID Performer Location Encounter Start Date Encounter Closed Date Diagnosis/Indication Diagnosis SNOMED-CT Code Diagnosis ICD10 Code Diagnosis Note [id number] [facility] [address] [facility] [address] [address] 02/28/2021 00:00:00 03/07/2021 15:18:03 [id number] [facility] [address] [facility] [address] [address] 03/14/2021 00:00:00 03/14/2021 13:30:23 [id number] [facility] [place] [facility] [place] [address] [place] [address] 01/30/2022 00:00:00 01/30/2022 12:40:59 [id number] [facility] [place] [facility] [place] [address] [place] [address] 03/27/2022 00:00:00 03/27/2022 10:24:14 [id number] [facility] [place] [address] [address] 06/04/2022 00:00:00 06/04/2022 10:17:53 [id number] [facility] [place] [address] [address] 06/18/2022 00:00:00 06/18/2022 11:11:02 [id number] [facility] [place] [address] [address] 10/08/2022 00:00:00 10/08/2022 15:10:05 [id number] Les Pace MD [facility] [place] [address] [address] 10/08/2023 15:33:52 10/09/2023 08:50:28 Obstructive sleep apnea syndrome 93964004 G47.33 Periodic l imb movement disorder 136205729 G47.61 Health Concerns Section Related Observation LastModified by Organization Detai ls LastModified Time None Recorded Concern Status LastModified by Organization Details LastModified Time None Recorded Advance Directives Directive None Recorded Payers Encounter Date Sequence Insurance Name Policy Number Policy Boggs Covered Member ID Boggs Member ID Guarantor Name 10/08/2023 1 [employer] (MEDICARE REPLACEMENT HMO) [id number] Deann Quezada [id number] Deann Quezada 10/08/2023 2 [place] WHEN MEDICARE OR MEDICARE REPLACEMENT PRIMARY) Deann Granadosr [id number] Deann Quezada Notes Date Note Type Note Provider Name and Address Organization Details Recorded Time 10/08/2023 text/html Primary care/Ref erring provider: NYA Gates-DAGOBERTOuring the [facility] night 1 sleep study on 03/20/22, the patient's sleep onset = 51 minutes, REM onset = 56.5 minutes, AHI = 12, supine AHI = 18, REM AHI = 42.At home since 07/23/22, the patient uses a [employer] AirSense 11 autoset unit with heated humidification. The patient does not need the ramp to start low and go up slowly on the pressure. There is no xerostomia in a.m. There is no hose/mask condensation with water.The patient wears a [employer] medium Eson 2 nasal mask without chin strap. There is no claustrophobia, no nostril/nose bridge irritation, no facial rash, no facial numbness, no nosebleeding.The patient feels more refreshed upon waking and daytime alertness is improved. Energy levels are sustained for the remainder of the day.PLMI = 9 and her lab workup is within normal limits.At home, the patient sleeps from 2 am to 11 am and wakes up by her child.Snoring: heavy, since 1999sSnorting: noChoking: noCoughing: yesGasping: yesGagging: noSighing: noWitnessed apnea: yesTwitching or jerking of leg(s), arm(s), body, head: yesTeeth grinding: yesTeeth clenching: yesSleeptalking: yesSleepwalking: noSleep crying: yesBedwetting: noTongue/lip/gum/cheek biting: yesSleeping with open mouth: yesSleep paralysis: noHypnagogic hallucinations: noHypnopompic hallucinations: noVivid dreams: yesDifficulty with sleep onset: yesDifficulty with sleep maintenance: yesSleep interruptions: panic attacksPatient wakes up with: fatigue, xerostomia, sore throat, headaches, cognitive impairment, mobility impairment, dexterity impairmentDaytime cataplexy: noMorning hypersomnolence: yesAfternoon hypersomnolence: yesCaffeine sources in diet: coffee 1 cup per month, tea 1.5 cup per dayAssociated medical and psychiatric conditions:Congestive heart failure: noCoronary artery disease: noMyocardial infarction: noHypertension: yesStroke: noBronchial asthma: noChronic obstructive pulmonary disease: noDepression: noBipolar disorder: noAnxiety: noPanic disorder: yesPosttraumatic stress disorder: noAttention deficit and hyperactivity disorder: noObsessive Compulsive disorder: noSchizophrenia: noSchizoaffective disorder: noPersonality disorder: noChronic analgesic use: noChronic sedative/hypnotic use: noEPWORTH SLEEPINESS SCALE (ESS)CHANCE OF DOZING SCORE0 = would never doze1 = slight chance of dozing2 = moderate chance of dozing3 = high chance of dozingSITUATION AND CHANCE OF DOZINGSitting and reading - 2Watching television - 3Sitting inactive in a public place (e.g. a theater or meeting) - 1As a passenger in a car for an hour without a break - 1Lying down to rest in the afternoon when circumstances permit - 3Sitting and talking to someone - 0Sitting quietly after lunch without alcohol - 0In a car, while stopped for a few minutes in the traffic - 0TOTAL SCORE 10Subjectively, patient has a moderate chance of dozing. Les Pace MD [address] [place] [address], [place], [address], [facility] 10/08/2023 16:23:09 OBGyn Episode No OBEpisode recorded.
--- OUTSIDE RECORDS SUMMARY | 2024-09-26 15:25 | XMS_ITS | Clinical Summary ---
Author Organization [facility] Address [address] [place] [address] Care Team Providers Care Extractor Plant Operator Name Role Phone Rosie Lincoln PA-C Primary Care Provider + Allergies No known active allergies Medications labetalol 100 MG tablet TAKE 1 TABLET BY MOUTH TWICE DAILY DIRECTED FOR 30 DAYS 08/02/2020 Active levothyroxine (EUTHYROX) 100 MCG tablet Take 100 mcg by mouth daily. 09/30/2020 Active metFORMIN 1000 MG tablet Take 1,000 mg by mouth 2 (two) times daily. 07/22/2020 Active Segesterone-Eth inyl Estradiol (ANNOVERA) 0.15-0.013 MG/24HR RING 08/10/2020 Active dextromethorpha n ER 30 MG/5ML liquid Take 5 mLs (30 mg total) by mouth every 12 (twelve) hours as needed (Cough and/or sore throat). 280 mL 12/13/2021 Active diclofenac EC 75 MG tablet Take 1 tablet (75 mg total) by mouth 2 (two) times daily as needed (Pain. Please take with meals). 30 tablet 12/13/2021 Active Family History Medical History Relation Comments Diabetes Father Hyperlipidemia Father Hypertension Father Diabetes Maternal Grandmother Hyperlipidemia Maternal Grandmother Hypertension Maternal Grandmother COPD Mother Cancer Paternal Grandmother Relation Status Comments Father Maternal Grandmother Mother Paternal Grandmother Social History Tobacco Use Types Packs/Day Years Used Date Smoking Tobacco: Never Smokeless Tobacco: Never Alcohol Use Standard Drinks/Week Comments Not Currently 0 (1 standard drink = 0.6 oz pur e alcohol) Comments No Sex and Gender Information Value Date Recorded Sex Assigned at Not on file Legal Sex Female 9:32 AM CDT Gender Identity Not on file Sexual Orientation Not on file Last Filed Vital Signs Vital Sign Reading Time Taken Comments Blood Pressure 160/98 12/13/2021 4:12 AM CDT Pt has hx of HTN, Pt states she will take her BP meds when she gets home Pulse 85 12/13/2021 4:12 AM CDT Temperature 36.6 C (97.8 F) 12/13/2021 12:54 AM CDT Respiratory Rate 18 12/13/2021 4:12 AM CDT Oxygen Saturation 98% 12/13/2021 4:1 2 AM CDT Inhaled Oxygen Concentration - - Weight 117.9 kg (260 lb) 12/13/2021 12: 54 AM CDT Height 165.1 cm (5' 5 ) 12/13/2021 12:5 4 AM CDT Body Mass Index 43.27 12/13/2021 12:54 AM CDT Plan of Treatment Health Maintenance Due Date Last Done Comments Cervical Cancer Screening Pa p Smear (Age 21 to 29) Every 3 Years 1998 Cervical Cancer Screening 1998 Annual Physical 2001 Hepatitis C 2016 DTaP, Tdap and Td Vaccines ( 1 - Tdap) 2017 Hepatitis B Vaccines (1 of 3 - 19+ 3-dose series) 2017 COVID-19 Vaccine ( - 2023-2 5 season) 2024 Influenza Adult (#1) 2024 HPV Vaccines Completed 12/26/2018, 08/22/2018, 06/05/2018 Meningococcal B Vaccine Aged Out No l onger eligible based on patient's age to complete this topic Meningococcal Vaccine Aged Out No naricso elias eligible based on patient's age to complete this topic Pneumococcal Vaccine: Pediatrics (0 to 5 Years) and At-Risk Patients (6 to 64 Years) Aged Out No longer eligible b ased on patient's age to complete this topic RSV Immunizations Under 20 Months Aged Out No longer eligible b ased on patient's age to complete this topic Insurance MEDICAID [employer]ETNA Care Teams Extractor Plant Operator Relationship Specialty Start Date End Date Rosie Lincoln PA-C [address] [place] [address] PCP - General PHYSICIAN ENTRY LEVEL MECHANICAL ENGINEER 12/13/21
--- OUTSIDE RECORDS SUMMARY | 2024-09-26 15:25 | XMS_ITS | Patient Health Summary ---
Author Organization [facility] [employer] Address [address] [place] [address] Care Team Providers Care Oil Burner Technician Name Role Phone Dana Chery PA-C Primary Care Provider [phone] Note from [facility],non-owned Affiliates and Associated Physician Practices is amultiple site organization consisting of ambulatory clinics and hospital sitesin [place], [place], [place] and [place]. This disclosure is being madepursuant to the Care Everywhere program and may not contain all information available regarding this patient. Last updated 18.[facility] Allergies No known active allergies Medications * Be aware that medications may not be up to date on this document. Alwaysverify current medications with the patient. * albuterol HFA (Proventil; Ventolin; Proair) 108 (90 Base) MCG/ACT inhaler (Started 07/26/2023) * FLUoxetine (PROzac) 40 MG capsule * levothyroxine (Synthroid) 100 MCG tablet(Started 08/04/2023) * lisinopril (Prinivil; Zestril) 40 MG tablet(Started 10/28/2023) * spironolactone (Aldactone) 50 MG tablet(Started 08/27/2023) * amphetamine-dextroamphetamine XR 24hr (Adderall XR) 20 MG capsule(Started 01/29/2024) * ibuprofen (Motrin) 800 MG tablet * fluticasone propionate (Flonase) 50 MCG/ACT nasal spray as needed * norethindrone 0.35 MG tablet(Started 06/26/2024) * cetirizine (ZyrTEC) 10 MG tablet Active Problems Problem Noted Date Diagnosed Date Obstructive sleep apnea syndrome 10/07/2023 11/13/2023 Periodic limb movement disorder 10/07/2023 11/13/2023 Acquired hypothyroidism 08/30/2020 11/13/19 PCOS (polycystic ovarian syndrome) 08/30/2020 11/13/2023 Social History Tobacco Use Types Packs/Day Years Used Date Smoking Tobacco: Former Cigarettes Q uit: 2019 Smokeless Tobacco: Never Tobacco Cessation:Counseling Given: No Alcohol Use Standard Drinks/Week Comments Not Currently 0 (1 standard drink = 0.6 oz pur e alcohol) Sex and Gender Information Value Date Recorded Sex Assigned at Not on file Gender Identity Not on file Sexual Orientation Not on file Last Filed Vital Signs Vital Sign Reading Time Taken Comments Blood Pressure 135/86 06/29/2024 1:32 PM BOBBIN WASHER Pulse 69 06/29/2024 1:32 PM BOBBIN WASHER Temperature 35.9 C (96.7 F) 06/29/2024 1:32 PM BOBBIN WASHER Respiratory Rate 16 02/12/2024 11:21 AM CDT Oxygen Saturation 96% 06/29/2024 1:32 PM BOBBIN WASHER Inhaled Oxygen Concentration - - Weight 108.9 kg (240 lb) 06/29/2024 1:32 PM BOBBIN WASHER Height 167.6 cm (5' 6 ) 06/29/2024 1:32 PM BOBBIN WASHER Body Mass Index 38.74 06/29/2024 1:32 PM BOBBIN WASHER Procedures * URINALYSIS AUTO - POINT OF CARE (AMB) [facility](Performed 02/12/2024) Performed for Recurrent UTI * URINALYSIS AUTO - POINT OF CARE (AMB) [facility](Performed 11/13/2023) Performed for Acute cystitis without hematuria Results * URINALYSIS AUTO - POINT OF CARE (AMB) [facility] (02/12/2024 11:29 AM CDT) Only the most recent of2 resultswithin the time period is included. Glucose UA - [facility] [address] Bilirubin UA POCT - [facility] [address] Ketones UA POCT - [facility] [address] Specific [place] UA 1.[address] [facility] [address] Blood Urine POCT - [facility] [address] pH UA 6.[address] [facility] [address] Protein UA - [facility] [address] Urobilinogen UA - [facility] [address] Nitrite UA - [facility] [address] WBC UA - [facility] [address] Urine URINE / Unknown 02/12/2024 1 1:29 AM CDT Laurita Suarez ESTIMATOR [facility] SPECIALIST [facility] - POINT OF CARE ORDERABLES [facility]ORY[facility] [address] [place] [address], [facility] [[email or web address]] [phone] Care Teams Oil Burner Technician Relationship Specialty Start Date End Date Dana Chery PA-C [address] [place] [id number] PCP - General 01/30/24
--- OUTSIDE RECORDS SUMMARY | 2024-09-26 15:25 | XMS_ITS | Clinical Summary ---
Author Organization [facility] [employer] Address [address] [place] [address] Care Team Providers Care Dispatch Officer Name Role Phone Dana Chery PA-C Primary Care Provider [phone] Source Comments [facility] [employer],non-owned Affiliates and Associated Physician Practices is amultiple site organization consisting of ambulatory clinics and hospital sitesin [place], [place], [place] and [place]. This disclosure is being madepursuant to the Care Everywhere program and may not contain all information available regarding this patient. Last updated 18.[facility] [employer] Allergies No known active allergies Medications * Be aware that medications may not be up to date on this document. Alwaysverify current medications with the patient. Medication Sig Dispensed Refills Start Date End Date Status albuterol HFA (Proventil; Ventolin; Proair) 108 (90 Base) MCG/ACT inhaler 07/26/2023 Act monica FLUoxetine (PROzac) 40 MG capsule Active levothyroxine (Synthroid) 100 MCG tablet 08/04/2023 Active lisinopril (Prinivil; Zestril) 40 MG tablet 10/28/2023 Active spironolactone (Aldactone) 50 MG tablet 08/27/2023 Active amphetamine-dextroamphetamine XR 24hr (Adderall XR) 20 MG capsule 01/29/2024 Active ibuprofen (Motrin) 800 MG tablet Active fluticasone propionate (Flonase) 50 MCG/ACT nasal spray as needed Active norethindrone 0.35 MG tablet 06/26/2024 Active cetirizine (ZyrTEC) 10 MG tablet Active Active Problems Problem Noted Date Diagnosed Date Obstructive sleep apnea syndrome 10/07/2023 11/13/2023 Periodic limb movement disorder 10/07/2023 11/13/2023 Acquired hypothyroidism 08/30/2020 11/13/19 24 Overview (11/13/2023): Last Assessment & Plan: Thyroid function tests, including TSH and free T4 were requested Will adjust dose of Levothyroxine accordingly . If there is a need to make changes, will recheck levels in 2-3 months. Instructions to patient on taking medication properly : in the morning, on an empty stomach , 1 h part from food and/or other meds. Send rx PCOS (polycystic ovarian syndrome) 08/30/2020 11/13/2023 Overview (11/13/2023): Last Assessment & Plan: Diet and exercise Continue Metformin Encounters Date Type Department Care Team Description 06/29/2024 1:30 PM MANOMETER TECHNICIAN Office Visit [facility] - Neurosurgery [address] [place] [address], [place] [address] Piyush Burks MD Chronic right-sided low back pain without sciatica (Primary Dx); Low back pain, unspecified back pain laterality, unspecified chronicity, unspecified whether sciatica present 06/29/2024 Travel from Last 3 Months Social History Tobacco Use Types Packs/Day Years [...] Comments Blood Pressure 135/86 06/29/2024 1:32 PM MANOMETER TECHNICIAN Pulse 69 06/29/2024 1:32 PM MANOMETER TECHNICIAN Temperature 35.9 C (96.7 F) 06/29/2024 1:32 PM MANOMETER TECHNICIAN Respiratory Rate 16 02/12/2024 11:21 AM CDT Oxygen Saturation 96% 06/29/2024 1:32 PM MANOMETER TECHNICIAN Inhaled Oxygen Concentration - - Weight 108.9 kg (240 lb) 06/29/2024 1:32 PM MANOMETER TECHNICIAN Height 167.6 cm (5' 6 ) 06/29/2024 1:32 PM MANOMETER TECHNICIAN Body Mass Index 38.74 06/29/2024 1:32 PM MANOMETER TECHNICIAN Plan of Treatment Health Maintenance Due Date Last Done Comments PAP SMEAR 1998 HIV SCREENING 2013 HPV VACCINE (1 - 3-dose series) 2013 HEPATITIS C SCREENING 03/12/2016 DTAP/TDAP/TD VACCINES (1 - Tdap) 2017 HEPATITIS B VACCINE (1 of 3 - 19+ 3-dose series) 2017 COVID-19 VACCINE (1 - 2023-2 5 season) 2024 INFLUENZA VACCINE (#1) 2024 DEPRESSION SCREENING 08/19/2024 MEDICARE AWV CALENDAR YEAR 2024 ZOSTER VACCINE (1 of 2) 2048 HIB VACCINE Aged Out No longer eligi ble based on patient's age to complete this topic MENINGOCOCCAL (Group B) VACCINE Aged Out No longer eligible based on patient's age to complete this topic MENINGOCOCCAL VACCINE Aged Out No narciso elias eligible based on patient's age to complete this topic PNEUMOCOCCAL VACCINE Aged Out No long er eligible based on patient's age to complete this topic Care Teams Dispatch Officer Relationship Specialty Start Date End Date Dana Chery PA-C [address] [place] [id number] PCP - General 01/30/24
--- OUTSIDE RECORDS SUMMARY | 2024-09-26 15:25 | XMS_ITS | Referral Summary ---
Author Organization [facility] [address] [place] [address] Care Team Providers Care Medical Director/Head Team Physician Name Role Phone Rosie Lincoln Primary Care Provider [phone] Allergies No known active allergies Medications metFORMIN (GLUCOPHAGE) 1,000 mg tablet Take 1,000 mg by mouth 2 (two) times a day 07/22/2020 Active lisinopril-hydr oCHLOROthiazide (ZESTORETIC) 10-12.5 mg per tablet TAKE 1 TABLET BY MOUTH ONCE DAILY IN THE MORNING 02/27/2021 Active EluRyng 0.12-0.015 mg/24 hr vaginal ring INSERT 1 RING INTO VAGINA ONCE EVERY MONTH 02/22/2021 Active FLUoxetine (PROzac) 20 mg capsule Take 1 capsule by mouth daily 01/14/2021 Active omeprazole (PriLOSEC) 20 mg capsule Take 1 capsule (20 mg total) by mouth daily 30 capsule 6 03/21/2021 Active Victoza 2-Arian 0.6 mg/0.1 mL (18 mg/3 mL) injection inject 1.2 MG under the skin EVERY DAY 12/05/2021 Active prazosin (MINIPRESS) 2 mg capsule 12/15/2021 Active Euthyrox 100 mcg tablet Take 1 tablet (100 mcg total) by mouth daily 90 tablet 3 01/01/2022 Active Active Problems Problem Noted Date Diagnosed Date Dyspepsia 03/21/2021 Assessment & Plan (03/21/2021 4:11 PM CDT): Omeprazole trial Acquired hypothyroidism 08/30/2020 Assessment & Plan (12/28/2021 1:28 PM CDT): Thyroid function tests, including TSH and free T4 were requested Will adjust dose of Levothyroxine accordingly . If there is a need to make changes, will recheck levels in 2-3 months. Instructions to patient on taking medication properly : in the morning, on an empty stomach , 1 h part from food and/or other meds. Send rx Assessment & Plan (03/21/2021 4:09 PM CDT): Thyroid function tests, including TSH and free T4 were requested Will adjust dose of Levothyroxine accordingly . If there is a need to make changes, will recheck levels in 2-3 months. Instructions to patient on taking medication properly : in the morning, on an empty stomach , 1 h part from food and/or other meds. Assessment & Plan (08/30/2020 4:34 PM ELECTRON BEAM PHOTO MASK TECHNICIAN): Recheck TSH, free T4 and adjust dose of levothyroxine accordingly I explained to the patient reported taking the medication in the mornings on an empty stomach 1 hour apart from food PCOS (polycystic ovarian syndrome) 08/30/2020 Assessment & Plan (03/21/2021 4:10 PM CDT): Diet and exercise Continue Metformin Assessment & Plan (08/30/2020 4:34 PM ELECTRON BEAM PHOTO MASK TECHNICIAN): Diet and exercise at the cornerstone of the treatment of PCOS with discussed Risk of progression to full blown diabetes also was discussed 30 to 45 minute daily aerobic and resistance exercise was advised Low-calorie low carb diet Continue metformin Resolved Problems Problem Noted Date Diagnosed Date Resolved Date Hyperprolactinemia (CMS/HCC) 08/30/2020 03/21/2021 Assessment & Plan (08/30/2020 4:33 PM ELECTRON BEAM PHOTO MASK TECHNICIAN): Could be related to hypothyroidism and /or PCOS Since the patient is not having any galactorrhea and she is on control right now, will hold on the cabergoline Will recheck prolactin levels once TSH is normalized Social History Tobacco Use Types Packs/Day Years Used Date Smoking Tobacco: Former Smokeless Tobacco: Never Alcohol Use Standard Drinks/Week Comments Not Currently 0 (1 standard drink = 0.6 oz pur e alcohol) PHQ-2 Answer Date Recorded PHQ-2 Total Score (If total score is 3 or more points, staff should administer the PHQ-9) 0 12/28/2021 Personal Safety Answer Date Recorded Getting School Help Needed Not on file 10/19 Comments Unknown Sex and Gender Information Value Date Recorded Sex Assigned at Not on file Legal Sex Female 9:27 AM ELECTRON BEAM PHOTO MASK TECHNICIAN Gender Identity Not on file Sexual Orientation Not on file Last Filed Vital Signs Vital Sign Reading Time Taken Comments Blood Pressure 130/66 12/28/2021 1:11 PM CDT Pulse 99 12/28/2021 1:11 PM CDT Temperature - - Respiratory Rate 16 12/28/2021 1:11 PM CDT Oxygen Saturation - - Inhaled Oxygen Concentration - - Weight 119.4 kg (263 lb 4.8 oz) 12/28/2021 1:11 PM CDT Height 170.2 cm (5' 7 ) 12/28/2021 1:11 PM CDT Body Mass Index 41.24 12/28/2021 1:11 PM CDT Plan of Treatment Not on file [place] [address] [place] [address] [facility] Care Teams Medical Director/Head Team Physician Relationship Specialty Start Date End Date Rosie Lincoln PA [address] [place] [address] PCP - General Physician Air Bag Curer 03/21/21
--- OUTSIDE RECORDS SUMMARY | 2024-09-26 15:25 | XMS_ITS | Clinical Summary ---
Author Organization [facility] Phys[facility] Office Building [address] [place] [phone] Care Team Providers Care Managed Care Liaison Name Role Phone Rosie Lincoln Primary Care Provider [phone] Allergies No known active allergies Medications metFORMIN [...] meds. Assessment & Plan (08/30/2020 4:34 PM COURIER DELIVERY DRIVER): Recheck TSH, free T4 and adjust dose of levothyroxine accordingly I explained to the patient reported taking the medication in the mornings on an empty stomach 1 hour apart from food PCOS (polycystic ovarian syndrome) 08/30/2020 Assessment & Plan (03/21/2021 4:10 PM CDT): Diet and exercise Continue Metformin Assessment & Plan (08/30/2020 4:34 PM COURIER DELIVERY DRIVER): Diet and exercise at the cornerstone of the treatment of PCOS with discussed Risk of progression to full blown diabetes also was discussed 30 to 45 minute daily aerobic and resistance exercise was advised Low-calorie low carb diet Continue metformin Resolved Problems Problem Noted Date Diagnosed Date Resolved Date Hyperprolactinemia (CMS/HCC) 08/30/2020 03/21/2021 Assessment & Plan (08/30/2020 4:33 PM COURIER DELIVERY DRIVER): Could be related to hypothyroidism and /or PCOS Since the patient is not having any galactorrhea and she is on control right now, will hold on the cabergoline Will recheck prolactin levels once TSH is normalized Surgical History Surgery Date Site/Laterality Comments SECTION LIPOMA RESECTION Medical History Medical History Date Comments Hypothyroidism Hypertension Hyperlipidemia Anxiety Depression Prediabetes Liver disease PTSD (post-traumatic stress disorder) Hyperprolactinemia (HCC) 08/30/2020 Family History Medical History Relation Name Comments Diabetes Father Hypertension Father Diabetes Maternal Grandmother Seizures Mother Relation Name Status Comments Father Alive Maternal Grandmother Alive Mother Alive Social History Tobacco Use Types Packs/Day Years [...] on file Legal Sex Female 9:27 AM COURIER DELIVERY DRIVER Gender Identity Not on file Sexual Orientation Not on file Obstetrics History Last Filed Vital Signs Vital Sign Reading [...] 12/28/2021 1:11 PM CDT Plan of Treatment Health Maintenance Due Date Last Done Comments Cervical Cancer Screening 1998 Hepatitis C Screening 1998 Varicella Vaccines (1 of 2 - 13+ 2-dose series) 2011 Hepatitis B Screening 2016 Regular Well Visit/Exam 18-64 2016 Depression Screening 12/28/2022 12/28/2021, 08/30/2020 Influenza Vaccine (#1) 2024 9, 05/13/2018 DTaP/Tdap/Td Vaccine (2 - Td or Tdap) 03/19/2028 03/19/2018 HPV Vaccines Completed 12/26/2018, 08/22/2018, 06/05/2018 Pneumococcal vaccine <65 Aged Out No longer eligible based on patient's age to complete this topic Insurance [facility] [employer] [facility] G[facility] REF Care Teams Managed Care Liaison Relationship Specialty [place] [address] [place] [address] PCP - General Physician Cage Loader 03/21/21
--- OUTSIDE RECORDS SUMMARY | 2024-09-26 15:25 | XMS_ITS | Referral Summary ---
Author Organization [facility] [employer] Address [address] [place] [address] Care Team Providers Care Video Game Maker Name Role Phone Dana Chery PA-C Primary Care Provider Source Comments [facility],non-owned Affiliates and Associated Physician Practices is amultiple site organization consisting of ambulatory clinics and hospital sitesin [place], [place], [place] and [place]. This disclosure is being madepursuant to the Care Everywhere program and may not contain all information available regarding this patient. Last updated 18.[facility] Encounters Date Type Department Care Team Description 06/29/2024 Travel 06/29/2024 1:30 PM APPLICATION DEVELOPMENT TEAM LEAD Office Visit [facility] - Neurosurgery [address] [place] [phone] Piyush Burks MD Chronic right-sided low back pain without sciatica (Primary Dx); Low back pain, unspecified back pain laterality, unspecified chronicity, unspecified whether sciatica present from Last 3 Months Allergies No known active allergies Medications * [...] & Plan: Diet and exercise Continue Metformin Social History Tobacco Use Types Packs/Day Years [...] Comments Blood Pressure 135/86 06/29/2024 1:32 PM APPLICATION DEVELOPMENT TEAM LEAD Pulse 69 06/29/2024 1:32 PM APPLICATION DEVELOPMENT TEAM LEAD Temperature 35.9 C (96.7 F) 06/29/2024 1:32 PM APPLICATION DEVELOPMENT TEAM LEAD Respiratory Rate 16 02/12/2024 11:21 AM CDT Oxygen Saturation 96% 06/29/2024 1:32 PM APPLICATION DEVELOPMENT TEAM LEAD Inhaled Oxygen Concentration - - Weight 108.9 kg (240 lb) 06/29/2024 1:32 PM APPLICATION DEVELOPMENT TEAM LEAD Height 167.6 cm (5' 6 ) 06/29/2024 1:32 PM APPLICATION DEVELOPMENT TEAM LEAD Body Mass Index 38.74 06/29/2024 1:32 PM APPLICATION DEVELOPMENT TEAM LEAD Plan of Treatment Not on file Care Teams Video Game Maker Relationship Specialty Start Date End Date Dana Chery PA-C [address] [place] [address] PCP - General 01/30/24
--- NOTE | 2024-09-26 15:31 | ECG_ITS ---
Test Date: 2024-09-26 15:44:04 Measurements Intervals [place] Rate: 80 P: 70 MA: 128 QRS: 60 QRSD: 83 T: 55 QT: 380 QTc: 438 Interpretive Statements SINUS RHYTHM WITH SINUS ARRHYTHMIA BORDERLINE ST-T WAVE ABNORMALITY- ANTEROLAT/INF LEADS BASELINE ARTIFACT- I, II, AVR, AVL BORDERLINE ECG No previous ECG available for comparison Electronically Signed On 09-26-2024 19:27:47 CLINIC MD ASSOCIATE by Osman Cope D.O.
--- OUTSIDE RECORDS SUMMARY | 2024-09-26 16:03 | XMS_ITS | Referral Summary ---
Author Organization [facility] [address] [place] [phone] Care Team Providers Care Supercalender Operator Helper Name Role Phone Rosie Lincoln Primary Care Provider [phone] Allergies No known active allergies Medications metFORMIN [...] meds. Assessment & Plan (08/30/2020 4:34 PM POWER NUT RUNNER OPERATOR): Recheck TSH, free T4 and adjust dose of levothyroxine accordingly I explained to the patient reported taking the medication in the mornings on an empty stomach 1 hour apart from food PCOS (polycystic ovarian syndrome) 08/30/2020 Assessment & Plan (03/21/2021 4:10 PM CDT): Diet and exercise Continue Metformin Assessment & Plan (08/30/2020 4:34 PM POWER NUT RUNNER OPERATOR): Diet and exercise at the cornerstone of the treatment of PCOS with discussed Risk of progression to full blown diabetes also was discussed 30 to 45 minute daily aerobic and resistance exercise was advised Low-calorie low carb diet Continue metformin Resolved Problems Problem Noted Date Diagnosed Date Resolved Date Hyperprolactinemia (CMS/HCC) 08/30/2020 03/21/2021 Assessment & Plan (08/30/2020 4:33 PM POWER NUT RUNNER OPERATOR): Could be related to hypothyroidism and /or [...] on file Legal Sex Female 9:27 AM POWER NUT RUNNER OPERATOR Gender Identity Not on file Sexual Orientation [...] Plan of Treatment Not on file [place] [address] [address] [facility] Care Teams Supercalender Operator Helper Relationship Specialty Start Date End Date Rosie Lincoln PA [address] [place] [address] PCP - General Physician Estimator Printing Plate Making 03/21/21
--- OUTSIDE RECORDS SUMMARY | 2024-09-26 16:03 | XMS_ITS | Clinical Summary ---
Author Organization [facility] Phys[facility] Office [facility] [address] [place] [id number] Care Team Providers Care Credit Manager Name Role Phone Rosie Lincoln Primary Care Provider [phone] Allergies No known active allergies Medications metFORMIN [...] meds. Assessment & Plan (08/30/2020 4:34 PM DIRECTOR FACILITIES MAINTENANCE): Recheck TSH, free T4 and adjust dose of levothyroxine accordingly I explained to the patient reported taking the medication in the mornings on an empty stomach 1 hour apart from food PCOS (polycystic ovarian syndrome) 08/30/2020 Assessment & Plan (03/21/2021 4:10 PM CDT): Diet and exercise Continue Metformin Assessment & Plan (08/30/2020 4:34 PM DIRECTOR FACILITIES MAINTENANCE): Diet and exercise at the cornerstone of the treatment of PCOS with discussed Risk of progression to full blown diabetes also was discussed 30 to 45 minute daily aerobic and resistance exercise was advised Low-calorie low carb diet Continue metformin Resolved Problems Problem Noted Date Diagnosed Date Resolved Date Hyperprolactinemia (CMS/HCC) 08/30/2020 03/21/2021 Assessment & Plan (08/30/2020 4:33 PM DIRECTOR FACILITIES MAINTENANCE): Could be related to hypothyroidism and /or [...] on file Legal Sex Female 9:27 AM DIRECTOR FACILITIES MAINTENANCE Gender Identity Not on file Sexual Orientation [...] patient's age to complete this topic Insurance [facility] AETNA [facility] GOLD REF Care Teams Credit Manager Relationship Specialty [place] [address] [place] [address] PCP - General Physician Technical Supervisor 03/21/21
--- OUTSIDE RECORDS SUMMARY | 2024-09-26 16:03 | XMS_ITS | Patient Health Summary ---
Author Organization [facility] [employer] Address [address] [facility] [place] [address] Care Team Providers Care Metrology Manager Name Role Phone Dana Chery PA-C Primary Care Provider [phone] Note from [facility],non-owned Affiliates and Associated Physician Practices is amultiple site organization consisting of ambulatory clinics and hospital sitesin [place], [place], [place] and [place]. This disclosure is being madepursuant to the Care Everywhere program and may not contain all information available regarding this patient. Last updated 18.[facility] Allergies No known active allergies Medications * [...] Comments Blood Pressure 135/86 06/29/2024 1:32 PM ENAMEL DRIER Pulse 69 06/29/2024 1:32 PM ENAMEL DRIER Temperature 35.9 C (96.7 F) 06/29/2024 1:32 PM ENAMEL DRIER Respiratory Rate 16 02/12/2024 11:21 AM CDT Oxygen Saturation 96% 06/29/2024 1:32 PM ENAMEL DRIER Inhaled Oxygen Concentration - - Weight 108.9 kg (240 lb) 06/29/2024 1:32 PM ENAMEL DRIER Height 167.6 cm (5' 6 ) 06/29/2024 1:32 PM ENAMEL DRIER Body Mass Index 38.74 06/29/2024 1:32 PM ENAMEL DRIER Procedures * URINALYSIS AUTO - POINT OF [...] - [facility] [address] Specific Spiro UA 1.[address] Blood [...] 02/12/2024 1 1:29 AM CDT Laurita Suarez CHIEF SCIENTIFIC OFFICER-NEUROLOGY PROFESSOR LAB - POINT OF CARE ORDERABLES [facility] [address] [place] [address], [facility] [phone] Care Teams Metrology Manager Relationship Specialty Start Date End Date Dana Cehry PA-C [address] [place] [phone] PCP - General 01/30/24
--- OUTSIDE RECORDS SUMMARY | 2024-09-26 16:03 | XMS_ITS | Referral Summary ---
Author Organization [facility] [employer] Address [address] [facility] [place] [address] Care Team Providers Care Weight And Balance Control Agent Name Role Phone Dana Chery PA-C Primary Care Provider Source Comments [facility] [employer],non-owned Affiliates and Associated Physician Practices is amultiple site organization consisting of ambulatory clinics and hospital sitesin [place], [place], [place] and [place]. This disclosure is being madepursuant to the Care Everywhere program and may not contain all information available regarding this patient. Last updated 18.[facility] [employer] Encounters Date Type Department Care Team Description 06/29/2024 Travel 06/29/2024 1:30 PM ADMINISTRATIVE SUPERVISOR Office Visit [facility] - Neurosurgery [address] [place] [phone] Piyush Burks MD Chronic right-sided low back [...] Comments Blood Pressure 135/86 06/29/2024 1:32 PM ADMINISTRATIVE SUPERVISOR Pulse 69 06/29/2024 1:32 PM ADMINISTRATIVE SUPERVISOR Temperature 35.9 C (96.7 F) 06/29/2024 1:32 PM ADMINISTRATIVE SUPERVISOR Respiratory Rate 16 02/12/2024 11:21 AM CDT Oxygen Saturation 96% 06/29/2024 1:32 PM ADMINISTRATIVE SUPERVISOR Inhaled Oxygen Concentration - - Weight 108.9 kg (240 lb) 06/29/2024 1:32 PM ADMINISTRATIVE SUPERVISOR Height 167.6 cm (5' 6 ) 06/29/2024 1:32 PM ADMINISTRATIVE SUPERVISOR Body Mass Index 38.74 06/29/2024 1:32 PM ADMINISTRATIVE SUPERVISOR Plan of Treatment Not on file Care Teams Weight And Balance Control Agent Relationship Specialty Start Date End Date Dana Chery PA-C [address] [place] [place] [phone] PCP - General 01/30/24
--- OUTSIDE RECORDS SUMMARY | 2024-09-26 16:03 | XMS_ITS | Clinical Summary ---
Author Organization [facility] [employer] Address [address] [facility] [place] [address] Care Team Providers Care Armature Straightener Name Role Phone Dana Chery PA-C Primary Care Provider [phone] [facility] [employer],non-owned Affiliates and Associated Physician Practices is amultiple site organization consisting of ambulatory clinics and hospital sitesin [place], [place], [place] and [place]. This disclosure is being madepursuant to the Care Everywhere program and may not contain all information available regarding this patient. Last updated 18.[facility] [employer] Allergies No known active allergies Medications * [...] Department Care Team Description 06/29/2024 1:30 PM HEAD REFRIGERATING ENGINEER Office Visit [facility] - Neurosurgery [address] [place] [address], [place] [address] Piyush Burks MD Chronic right-sided low back [...] Comments Blood Pressure 135/86 06/29/2024 1:32 PM HEAD REFRIGERATING ENGINEER Pulse 69 06/29/2024 1:32 PM HEAD REFRIGERATING ENGINEER Temperature 35.9 C (96.7 F) 06/29/2024 1:32 PM HEAD REFRIGERATING ENGINEER Respiratory Rate 16 02/12/2024 11:21 AM CDT Oxygen Saturation 96% 06/29/2024 1:32 PM HEAD REFRIGERATING ENGINEER Inhaled Oxygen Concentration - - Weight 108.9 kg (240 lb) 06/29/2024 1:32 PM HEAD REFRIGERATING ENGINEER Height 167.6 cm (5' 6 ) 06/29/2024 1:32 PM HEAD REFRIGERATING ENGINEER Body Mass Index 38.74 06/29/2024 1:32 PM HEAD REFRIGERATING ENGINEER Plan of Treatment Health Maintenance Due Date [...] age to complete this topic Care Teams Armature Straightener Relationship Specialty Start Date End Date Dana Chery PA-C [address] [place] [phone] PCP - General 01/30/24
--- OUTSIDE RECORDS SUMMARY | 2024-09-26 16:03 | XMS_ITS | Clinical Summary ---
Author Organization [facility] Address [address] [place] [address] Care Team Providers Care Computer Assembler Name Role Phone Rosie Lincoln PA-C Primary [...] this topic Meningococcal Vaccine Aged Out No narciso elias eligible based [...] this topic Insurance MEDICAID [employer] Care Teams Computer Assembler Relationship Specialty Start Date End Date Rosie Lincoln PA-C [address] [place] [address] PCP - General PHYSICIAN DIE HOLDER 12/13/21
--- NOTE | 2024-09-26 17:15 | ED.GENADULT ---
HPI - General Adult General Chief complaint: Chest Pain <Josue Barry MD - Last Filed: 09/27/24 07:39> Stated complaint: CHEST PAIN <Josue Barry MD - Last Filed: 09/27/24 07:39> Time Seen by Provider: 09/26/24 15:53 <Josue Barry MD - Last Filed: 09/27/24 07:39> History of Present Illness HPI narrative: 24-year-old female presents to the emergency department for evaluation for intermittent chest pain. Patient does have history of hypertension and states her blood pressures have been running high over the last few days. Patient does take lisinopril and has been taking her medication as directed. Patient states she typically runs an the 130s range but has been running high over the last few days. Patient reports she has had intermittent shortness of breath feeling dizzy. Patient describes intermittent right-sided chest pain at time of evaluation patient denies any current chest pain. Patient reports she has had increased anxiety secondary to her son's health issues. <Josue Barry MD - Last Filed: 09/27/24 07:39> Related Data Home medications: Home Medications ?Medication ?Instructions ?Recorded ?Confirmed ?Last Taken ?Type amlodipine 5 mg tablet 5 mg PO 08/27/23 10/08/23 Unknown History fluoxetine 40 mg capsule 40 mg PO 08/27/23 10/08/23 Unknown History fluticasone propionate 50 intranasal 08/27/23 10/08/23 Unknown History mcg/actuation nasal spray,suspension levothyroxine 100 mcg tablet 100 mcg PO 08/27/23 10/08/23 Unknown History lisinopril 40 mg tablet 40 mg PO 08/27/23 10/08/23 Unknown History prazosin 1 mg capsule 1 mg PO 08/27/23 10/08/23 Unknown History atomoxetine 40 mg capsule 40 mg PO 10/08/23 10/08/23 Unknown History <Josue Barry MD - Last Filed: 09/27/24 07:39> Allergies/adverse reactions: Allergies Allergy/AdvReac Type Severity Reaction Status Date / Time No Known Allergies Allergy Verified 09/26/24 15:37 <Josue Barry MD - Last Filed: 09/27/24 07:39> Review of Systems Review of Systems: All systems reviewed & are unremarkable except as noted in HPI and below <Josue Barry MD - Last Filed: 09/27/24 07:39> PMFSH Past Medical History Medical History: Medical History Anxiety Depression Hypertension Hypothyroid PCOS (polycystic ovarian syndrome) <Josue Barry MD - Last Filed: 09/27/24 07:39> Surgical History Surgical History: Surgical History H/O wisdom tooth extraction History of delivery <Josue Barry MD - Last Filed: 09/27/24 07:39> Family History Family History: Family History Mother Cervical cancer Grandparent Ovarian cancer <Josue Barry MD - Last Filed: 09/27/24 07:39> Social History Social History: Social History Smoking status: Never smoker Alcohol intake: current Alcohol use details: rare Substance use: former Substance use type: marijuana Do You Feel Safe in your Home?: Yes Lack of Transportation: No Lack of Food: Never True Current Housing: I Have Housing Concerned About Future Housing: No Difficulty Paying Gas/Electric Bills: Decline to Answer Difficulty Paying for Meds: No Currently Unemployed: No Education: High School Diploma/GED Difficulty w/ Childcare or Family Care: No Living arrangements: with family Occupation/Education: unemployed Gender identity (if verbalized by the patient): Female Sexual Orientation (if Verbalized by the Patient): Straight or Heterosexual <Josue Barry MD - Last Filed: 09/27/24 07:39> Exam Narrative: APPEARANCE: Well appearing, anxious affect HEAD: normocephalic, atraumatic. EYES: PERRLA/EOMI, conjunctivae clear. NOSE: Normal no drainage EARS:TMS clear with good light reflex. THROAT: Pharynx clear, no exudate. NECK: Supple. No adenopathy, no masses. RESPIRATORY: Airway patent, respirations nonlabored. Clear to auscultation bilaterally, no rales, rhonchi, wheezing. CARDIOVASCULAR: Regular rate and rhythm without murmurs rubs or gallops. ABDOMINAL: Soft, nontender, nondistended, normal bowel sounds MUSCULOSKELETAL: Moves all extremities. Strength/ROM intact, No edema, No calf tenderness. NEURO: Alert. Cranial nerves II through XII intact. Grossly intact SKIN: Warm, dry. Normal Color <Josue Barry MD - Last Filed: 09/27/24 07:39> Course Course Emergency Course: Patient signed out to me pending her workup. This is reviewed and unremarkable. I did reassessed patient at bedside and she has a blood pressure of 142/80. She states her symptoms come and go. She notes that they have been working on changing her medications around for example hydrochlorothiazide been removed from her antihypertensive regimen and she has only been on lisinopril for a while. She also takes extended-release clonidine once daily in addition to her other medications for bipolar disorder and anxiety including Lamictal and fluoxetine. Patient states she takes her clonidine at night. It is possible that there is a component of reflex hypertension, though I also recommended that she keep a log in general of her blood pressures. She states she checks her blood pressure is only when she is symptomatic and I encouraged her that she could continue doing this but also checked them when she is asymptomatic and make a notation on whether she has taken medications at that point and which medications and follow-up with her primary care physician with this information. She verifies understanding. Stable for discharge. <Paradise Winter MD - Last Filed: 09/26/24 19:51> Vital Signs Vital signs: Vital Signs Temperature 99.4 F 09/26/24 15:33 Pulse Rate 97 09/26/24 15:33 Respiratory Rate 20 09/26/24 15:33 Blood Pressure 176/106 H 09/26/24 15:33 Pulse Oximetry 99 09/26/24 15:33 Oxygen Delivery Room Air 09/26/24 15:33 Temperature 97.8 F 09/26/24 18:46 Pulse Rate 83 09/26/24 19:55 Respiratory Rate 15 09/26/24 19:55 Blood Pressure 123/87 09/26/24 19:55 Pulse Oximetry 99 09/26/24 19:55 Oxygen Delivery Room Air 09/26/24 15:33 <Josue Barry MD - Last Filed: 09/27/24 07:39> Vital Signs Temperature 99.4 F 09/26/24 15:33 Pulse Rate 97 09/26/24 15:33 Respiratory Rate 20 09/26/24 15:33 Blood Pressure 176/106 H 09/26/24 15:33 Pulse Oximetry 99 09/26/24 15:33 Oxygen Delivery Room Air 09/26/24 15:33 Temperature 97.8 F 09/26/24 18:46 Pulse Rate 83 09/26/24 19:55 Respiratory Rate 15 09/26/24 19:55 Blood Pressure 123/87 09/26/24 19:55 Pulse Oximetry 99 09/26/24 19:55 Oxygen Delivery Room Air 09/26/24 15:33 <Paradise Winter MD - Last Filed: 09/26/24 19:51> Medical Decision Making MDM Narrative Medical decision making narrative: 24-year-old female presented to the emergency department for evaluation for hypertension. Upon arrival emergency department patient's blood pressure was 176/106. Patient did not receive any medications to lower her blood pressure. Patient was anxious appearing upon arrival to the ED and patient was treated with Ativan IV. On re-evaluations patient's blood pressure is now at her typical baseline of 129/85. At time of sign-out labs are pending. Anticipated disposition is going to be discharged to home. <Josue Barry MD - Last Filed: 09/27/24 07:39> Vital Signs Vital Signs: Vital Signs Temperature 99.4 F 09/26/24 15:33 Pulse Rate 97 09/26/24 15:33 Respiratory Rate 20 09/26/24 15:33 Blood Pressure 176/106 H 09/26/24 15:33 Pulse Oximetry 99 09/26/24 15:33 Oxygen Delivery Room Air 09/26/24 15:33 Temperature 97.8 F 09/26/24 18:46 Pulse Rate 83 09/26/24 19:55 Respiratory Rate 15 09/26/24 19:55 Blood Pressure 123/87 09/26/24 19:55 Pulse Oximetry 99 09/26/24 19:55 Oxygen Delivery Room Air 09/26/24 15:33 <Josue Barry MD - Last Filed: 09/27/24 07:39> Vital Signs Temperature 99.4 F 09/26/24 15:33 Pulse Rate 97 09/26/24 15:33 Respiratory Rate 20 09/26/24 15:33 Blood Pressure 176/106 H 09/26/24 15:33 Pulse Oximetry 99 09/26/24 15:33 Oxygen Delivery Room Air 09/26/24 15:33 Temperature 97.8 F 09/26/24 18:46 Pulse Rate 83 09/26/24 19:55 Respiratory Rate 15 09/26/24 19:55 Blood Pressure 123/87 09/26/24 19:55 Pulse Oximetry 99 09/26/24 19:55 Oxygen Delivery Room Air 09/26/24 15:33 <Paradise Winter MD - Last Filed: 09/26/24 19:51> Lab Data Result diagrams: 09/26/24 18:49 09/26/24 18:49 <Josue Barry MD - Last Filed: 09/27/24 07:39> Labs: Lab Results 09/26/24 Range/Units 18:49 WBC 8.9 (4.5-10.0) K/mm3 RBC 4.84 (4.2-5.4) M/mm3 Hgb 15.0 (12.0-15.0) g/dL Hct 42.0 (37.0-47.0) % MCV 86.8 (80-100) fl MCH 31.0 (26-34) pg MCHC 35.7 (32-36) g/dl RDW 12.0 (11.5-14.5) % Plt Count 280 (150-375) k/mm3 MPV 10.3 (7.4-10.4) fl Immature Gran % (Auto) 0.2 (0-0.5) % Neut % (Auto) 60.2 (45.5-73.1) % Lymph % (Auto) 29.2 (18.3-44.2) % [place] % (Auto) 7.2 (2.6-8.5) % Eos % (Auto) 2.4 (0-4.4) % Baso % (Auto) 0.8 (0.2-1.2) % Lymph # (Auto) 2.59 (0.9-3.2) K/mm3 [place] # (Auto) 0.6 (0.1-0.6) K/mm3 Eos # (Auto) 0.2 (0-0.3) K/mm3 Baso # (Auto) 0.1 (0.0-0.1) K/mm3 Abs Immat Gran (auto) 0.02 (0.00-0.031) K/mm3 Absolute Neuts (auto) 5.3 (1.3-6.7) K/mm3 Absolute Nucleated RBC 0.000 (0.0-0.012) K/mm3 Nucleated RBC % 0.0 (0.0-0.2) % PT 12.2 (11.1-14.7) Seconds INR 0.9 APTT 24.7 (22.3-36.8) Seconds Sodium 138 (137-145) mmol/L Potassium 4.2 (3.4-5.0) mmol/L Chloride 103 (98-107) mmol/L Carbon Dioxide 25 (22-30) mmol/L Anion Gap 10 (4-12) mmol/L BUN 8 D (7-17) mg/dL Creatinine 0.56 L (0.7-1.0) mg/dL Estim Creat Clear Calc 156 ml/min Estimated GFR > 60 (59 - ) Glucose 83 (65-110) mg/dL Calcium 9.6 (8.4-10.2) mg/dL Total Bilirubin 0.4 (0.2-1.3) mg/dL AST 25 (14-36) U/L ALT 27 (6-35) U/L Alkaline Phosphatase 104 (38-126) U/L Troponin I < 0.012 (0.000-0.034) ng/mL Total Protein 7.0 (6.3-8.2) g/dL Albumin 4.4 (3.5-5.1) g/dL Lipase 94 (23-300) U/L Influenza A (RT-PCR) Negative (Negative) Influenza B (RT-PCR) Negative (Negative) RSV (RT-PCR) Negative (Negative) SARS-CoV-2 RNA (RT-PCR) Negative (Negative) <Josue Barry MD - Last Filed: 09/27/24 07:39> Lab Results 09/26/24 Range/Units 18:49 WBC 8.9 (4.5-10.0) K/mm3 RBC 4.84 (4.2-5.4) M/mm3 Hgb 15.0 (12.0-15.0) g/dL Hct 42.0 (37.0-47.0) % MCV 86.8 (80-100) fl MCH 31.0 (26-34) pg MCHC 35.7 (32-36) g/dl RDW 12.0 (11.5-14.5) % Plt Count 280 (150-375) k/mm3 MPV 10.3 (7.4-10.4) fl Immature Gran % (Auto) 0.2 (0-0.5) % Neut % (Auto) 60.2 (45.5-73.1) % Lymph % (Auto) 29.2 (18.3-44.2) % [place] % (Auto) 7.2 (2.6-8.5) % Eos % (Auto) 2.4 (0-4.4) % Baso % (Auto) 0.8 (0.2-1.2) % Lymph # (Auto) 2.59 (0.9-3.2) K/mm3 [place] # (Auto) 0.6 (0.1-0.6) K/mm3 Eos # (Auto) 0.2 (0-0.3) K/mm3 Baso # (Auto) 0.1 (0.0-0.1) K/mm3 Abs Immat Gran (auto) 0.02 (0.00-0.031) K/mm3 Absolute Neuts (auto) 5.3 (1.3-6.7) K/mm3 Absolute Nucleated RBC 0.000 (0.0-0.012) K/mm3 Nucleated RBC % 0.0 (0.0-0.2) % PT 12.2 (11.1-14.7) Seconds INR 0.9 APTT 24.7 (22.3-36.8) Seconds Sodium 138 (137-145) mmol/L Potassium 4.2 (3.4-5.0) mmol/L Chloride 103 (98-107) mmol/L Carbon Dioxide 25 (22-30) mmol/L Anion Gap 10 (4-12) mmol/L BUN 8 D (7-17) mg/dL Creatinine 0.56 L (0.7-1.0) mg/dL Estim Creat Clear Calc 156 ml/min Estimated GFR > 60 (59 - ) Glucose 83 (65-110) mg/dL Calcium 9.6 (8.4-10.2) mg/dL Total Bilirubin 0.4 (0.2-1.3) mg/dL AST 25 (14-36) U/L ALT 27 (6-35) U/L Alkaline Phosphatase 104 (38-126) U/L Troponin I < 0.012 (0.000-0.034) ng/mL Total Protein 7.0 (6.3-8.2) g/dL Albumin 4.4 (3.5-5.1) g/dL Lipase 94 (23-300) U/L Influenza A (RT-PCR) Negative (Negative) Influenza B (RT-PCR) Negative (Negative) RSV (RT-PCR) Negative (Negative) SARS-CoV-2 RNA (RT-PCR) Negative (Negative) <Paradise Winter MD - Last Filed: 09/26/24 19:51> Discharge Plan Discharge Clinical Impression: Hypertension, Chest pain <Josue Barry MD - Last Filed: 09/27/24 07:39> Patient Disposition: Home, Self-Care <Josue Barry MD - Last Filed: 09/27/24 07:39> Condition: Stable <Josue Barry MD - Last Filed: 09/27/24 07:39> Instructions: Antibiotic Form, Chest Pain (DC), Hypertension (ED) <Josue Barry MD - Last Filed: 09/27/24 07:39> Additional Instructions: As we discussed, your workup did not reveal any concerning findings. Your blood pressure has improved/normalized. Acetaminophen/Tylenol (maximum 4000 mg per day) is safe to take with NSAIDs (ibuprofen/Motrin) for pain relief. Continue taking your medications as prescribed and keep a log of your blood pressures including when symptomatic and even when not having symptoms. Follow-up with your primary care provider taking this log so they can watch the trends and make recommendations based on this. Return to the emergency department with any new or worsening symptoms. <Josue Barry MD - Last Filed: 09/27/24 07:39> Patient Language: Spanish <Josue Barry MD - Last Filed: 09/27/24 07:39> Prescriptions: New ibuprofen 600 mg tablet 600 mg PO TID PRN (Reason: pain) Qty: 20 0RF acetaminophen 500 mg capsule 1,000 mg PO Q6H PRN (Reason: pain) Qty: 20 0RF No Action atomoxetine 40 mg capsule 40 mg PO levothyroxine 100 mcg tablet 100 mcg PO prazosin 1 mg capsule 1 mg PO lisinopril 40 mg tablet 40 mg PO amlodipine 5 mg tablet 5 mg PO fluoxetine 40 mg capsule 40 mg PO fluticasone propionate 50 mcg/actuation spray,suspension intranasal ondansetron 4 mg tablet,disintegrating 4 mg PO Q8H PRN (Reason: nausea and vomiting) Qty: 12 0RF norethindrone (contraceptive) 0.35 mg tablet 0.35 mg PO DAILY Qty: 84 3RF metformin 500 mg tablet See Rx Instructions .ROUTE .COMPLEX Qty: 90 2RF Dose Instruction: TAKE 1 TABLET BY MOUTH DAILY Rx Instructions: TAKE 1 TABLET BY MOUTH DAILY spironolactone 50 mg tablet See Rx Instructions .ROUTE .COMPLEX Qty: 180 2RF Dose Instruction: TAKE 1 TABLET BY MOUTH TWICE DAILY Rx Instructions: TAKE 1 TABLET BY MOUTH TWICE DAILY <Josue Barry MD - Last Filed: 09/27/24 07:39> Follow-up/Referrals: Vik,NYA Cortez [Primary Care Provider] - <Josue Barry MD - Last Filed: 09/27/24 07:39> Stand Alone Forms: Work/School Release IP <Josue Barry MD - Last Filed: 09/27/24 07:39> Time of Disposition: 19:47 <Josue Barry MD - Last Filed: 09/27/24 07:39> 19:47 <Paradise Winter MD - Last Filed: 09/26/24 19:51>
[2024-09-26] MEDS: LORazepam INJ (*CRX) 2 MG/ML VIAL 1 MG IV PUSH (17:53)
[2024-09-26 18:56] LABS: Basophils Absolute Auto 0.1 K/mm3 (0.0-0.1); Basophils Percent Auto 0.8 % (0.2-1.2); Eosinophils Absolute Auto 0.2 K/mm3 (0-0.3); Eosinophils Percent Auto 2.4 % (0-4.4); Immature Granulocyte Absolute 0.02 K/mm3 (0.00-0.031); Immature Granulocyte Percent A 0.2 % (0-0.5); Lymphocytes Absolute Auto 2.59 K/mm3 (0.9-3.2); Lymphocytes Percent Auto 29.2 % (18.3-44.2); Mean Corpuscular HGB Conc 35.7 g/dl (32-36); Mean Corpuscular Volume 86.8 fl (80-100); Mean Platelet Volume 10.3 fl (7.4-10.4); Monocytes Absolute Auto 0.6 K/mm3 (0.1-0.6); Monocytes Percent Auto 7.2 % (2.6-8.5); Neutrophils Absolute Auto 5.3 K/mm3 (1.3-6.7); Neutrophils Percent Auto 60.2 % (45.5-73.1); Platelet Count Result 280 k/mm3 (150-375); Red Blood Count 4.84 M/mm3 (4.2-5.4); White Blood Count 8.9 K/mm3 (4.5-10.0)
[2024-09-26 19:06] LABS: INR 0.9; Partial Thromboplastin Time 24.7 Seconds (22.3-36.8); Prothrombin Time 12.2 Seconds (11.1-14.7)
[2024-09-26 19:18] LABS: Alanine Aminotransferase 27 U/L (6-35); Albumin Level 4.4 g/dL (3.5-5.1); Alkaline Phosphatase 104 U/L (38-126); Anion Gap 10 mmol/L (4-12); Aspartate Amino Transferase 25 U/L (14-36); Bilirubin,Total 0.4 mg/dL (0.2-1.3); Blood Urea Nitrogen 8 mg/dL (7-17); Calcium 9.6 mg/dL (8.4-10.2); Carbon Dioxide 25 mmol/L (22-30); Chloride 103 mmol/L (98-107); Estimated CRCL calculation 156 ml/min; Estimated Glomerular Filt Rate > 60; Glucose 83 mg/dL (65-110); Lipase 94 U/L (23-300); Potassium 4.2 mmol/L (3.4-5.0); Sodium 138 mmol/L (137-145)
[2024-09-26 19:29] LABS: Troponin I < 0.012 ng/mL (0.000-0.034)
[2024-09-26 19:32] LABS: Influenza A QL RT-PCR Negative (Negative); Influenza B QL RT-PCR Negative (Negative); RSV RNA, RT-PCR Negative (Negative); SARS-CoV-2 RNA PCR Negative (Negative)
== END 2024-09-26 19:57 | disposition home or self-care (01) ==
PROVIDERS: Emergency Medicine; Emergency Provider Student in an Organized Health Care Education/Training Program; PCP Physician Assistant
DX: R07.9 Chest pain, unspecified (principal); Z20.822 Contact with and (suspected) exposure to COVID-19; I10 Essential (primary) hypertension; E03.9 Hypothyroidism, unspecified; E28.2 Polycystic ovarian syndrome; F41.9 Anxiety disorder, unspecified; F32.A Depression, unspecified; R94.31 Abnormal electrocardiogram [ECG] [EKG]; Z79.84 Long term (current) use of oral hypoglycemic drugs; Z79.899 Other long term (current) drug therapy; Z79.3 Long term (current) use of hormonal contraceptives
CPT/HCPCS: 36415; 71046; 80053; 83690; 84484; 85025; 85610; 85730; 87637; 93005; 96374; 96375; 99284; J2060

== ENCOUNTER 2024-10-02 09:49 | Emergency (ER) | payer MEDICARE, MEDICAID, SELFPAY ==
[2024-10-02 09:54] VITALS: BP 126/73; PULSE 98; RESP 18; TEMP 37; O2SAT 98
--- OUTSIDE RECORDS SUMMARY | 2024-10-02 10:00 | XMS_ITS | Referral Summary ---
Author Organization [facility] Physician Office Building [address] [place] [address] Care Team Providers Care Corrosion Control Technician Name Role Phone Rosie Lincoln Primary Care Provider Allergies No known active allergies Medications metFORMIN [...] meds. Assessment & Plan (08/30/2020 4:34 PM GEOGRAPHY FACULTY MEMBER): Recheck TSH, free T4 and adjust dose of levothyroxine accordingly I explained to the patient reported taking the medication in the mornings on an empty stomach 1 hour apart from food PCOS (polycystic ovarian syndrome) 08/30/2020 Assessment & Plan (03/21/2021 4:10 PM CDT): Diet and exercise Continue Metformin Assessment & Plan (08/30/2020 4:34 PM GEOGRAPHY FACULTY MEMBER): Diet and exercise at the cornerstone of the treatment of PCOS with discussed Risk of progression to full blown diabetes also was discussed 30 to 45 minute daily aerobic and resistance exercise was advised Low-calorie low carb diet Continue metformin Resolved Problems Problem Noted Date Diagnosed Date Resolved Date Hyperprolactinemia (CMS/HCC) 08/30/2020 03/21/2021 Assessment & Plan (08/30/2020 4:33 PM GEOGRAPHY FACULTY MEMBER): Could be related to hypothyroidism and /or [...] on file Legal Sex Female 9:27 AM GEOGRAPHY FACULTY MEMBER Gender Identity Not on file Sexual Orientation [...] Plan of Treatment Not on file Insurance [place] [address] [facility] GOLD REF Care Teams Corrosion Control Technician Relationship Specialty Start Date End Date Rosie Lincoln PA [address] [place] [address] PCP - General Physician Rn Peritoneal Dialysis 03/21/21
--- OUTSIDE RECORDS SUMMARY | 2024-10-02 10:00 | XMS_ITS | Clinical Summary ---
Author Organization [facility] [employer] Address [address] [place] [address] Care Team Providers Care Motor Bus Driver Name Role Phone Dana Chery PA-C Primary Care Provider Source Comments [facility] [employer],non-owned Affiliates and Associated Physician Practices is amultiple site organization consisting of ambulatory clinics and hospital sitesin [place], [place], [place] and [place]. This disclosure is being madepursuant to the Care Everywhere program and may not contain all information available regarding this patient. Last updated 18.[facility] [employer] Allergies No known active allergies Medications * [...] Comments Blood Pressure 135/86 06/29/2024 1:32 PM DIRECTOR OF FEDERAL SALES Pulse 69 06/29/2024 1:32 PM DIRECTOR OF FEDERAL SALES Temperature 35.9 C (96.7 F) 06/29/2024 1:32 PM DIRECTOR OF FEDERAL SALES Respiratory Rate 16 02/12/2024 11:21 AM CDT Oxygen Saturation 96% 06/29/2024 1:32 PM DIRECTOR OF FEDERAL SALES Inhaled Oxygen Concentration - - Weight 108.9 kg (240 lb) 06/29/2024 1:32 PM DIRECTOR OF FEDERAL SALES Height 167.6 cm (5' 6 ) 06/29/2024 1:32 PM DIRECTOR OF FEDERAL SALES Body Mass Index 38.74 06/29/2024 1:32 PM DIRECTOR OF FEDERAL SALES Plan of Treatment Health Maintenance Due Date [...] age to complete this topic Care Teams Motor Bus Driver Relationship Specialty Start Date End Date Dana Chery PA-C [address] [place] [address] PCP - General 01/30/24
--- OUTSIDE RECORDS SUMMARY | 2024-10-02 10:00 | XMS_ITS | Clinical Summary ---
Author Organization [facility] Physician Office Building [address] [place] [address] Care Team Providers Care Second Hand Paper Machine Name Role Phone Rosie Lincoln Primary Care Provider [phone] Allergies No known active allergies Medications metFORMIN [...] meds. Assessment & Plan (08/30/2020 4:34 PM AUTO ELECTRICIAN): Recheck TSH, free T4 and adjust dose of levothyroxine accordingly I explained to the patient reported taking the medication in the mornings on an empty stomach 1 hour apart from food PCOS (polycystic ovarian syndrome) 08/30/2020 Assessment & Plan (03/21/2021 4:10 PM CDT): Diet and exercise Continue Metformin Assessment & Plan (08/30/2020 4:34 PM AUTO ELECTRICIAN): Diet and exercise at the cornerstone of the treatment of PCOS with discussed Risk of progression to full blown diabetes also was discussed 30 to 45 minute daily aerobic and resistance exercise was advised Low-calorie low carb diet Continue metformin Resolved Problems Problem Noted Date Diagnosed Date Resolved Date Hyperprolactinemia (CMS/HCC) 08/30/2020 03/21/2021 Assessment & Plan (08/30/2020 4:33 PM AUTO ELECTRICIAN): Could be related to hypothyroidism and /or [...] on file Legal Sex Female 9:27 AM AUTO ELECTRICIAN Gender Identity Not on file Sexual Orientation [...] patient's age to complete this topic Insurance [facility] [employer]ETNA [facility] GOLD REF Care Teams Second Hand Paper Machine Relationship Specialty [place] [address] [place] [address] PCP - General Physician Field Traffic Investigator 03/21/21
--- OUTSIDE RECORDS SUMMARY | 2024-10-02 10:00 | XMS_ITS | Patient Health Summary ---
Author Organization [facility] [employer] Address [address] [place] [place] [address] Care Team Providers Care Agricultural Commodities Inspector Name Role Phone Dana Chery PA-C Primary Care Provider + [phone] Note from [facility],non-owned Affiliates and Associated Physician Practices is amultiple site organization consisting of ambulatory clinics and hospital sitesin [place], [place], [place] and [place]. This disclosure is being madepursuant to the Care Everywhere program and may not contain all information available regarding this patient. Last updated 18.[facility] Allergies No known active allergies Medications * [...] Comments Blood Pressure 135/86 06/29/2024 1:32 PM STORY WRITER Pulse 69 06/29/2024 1:32 PM STORY WRITER Temperature 35.9 C (96.7 F) 06/29/2024 1:32 PM STORY WRITER Respiratory Rate 16 02/12/2024 11:21 AM CDT Oxygen Saturation 96% 06/29/2024 1:32 PM STORY WRITER Inhaled Oxygen Concentration - - Weight 108.9 kg (240 lb) 06/29/2024 1:32 PM STORY WRITER Height 167.6 cm (5' 6 ) 06/29/2024 1:32 PM STORY WRITER Body Mass Index 38.74 06/29/2024 1:32 PM STORY WRITER Procedures * URINALYSIS AUTO - POINT OF [...] - [facility] [address] Specific [place] UA 1.[address] [facility] [address] Blood [...] 02/12/2024 1 1:29 AM CDT Laurita Suarez CRIMINAL JUSTICE FACULTY-STAFF SERVICES MANAGER LAB - POINT OF CARE ORDERABLES JORYRE [address] [place] [address], [facility] [phone] Care Teams Agricultural Commodities Inspector Relationship Specialty Start Date End Date Dana Chery PA-C [address] [place] [phone] PCP - General 01/30/24
--- OUTSIDE RECORDS SUMMARY | 2024-10-02 10:00 | XMS_ITS | Data Portability ---
Author Organization [place] [facility] [employer], Main Office Address [address] [place] [address] Assessment Encounter Date Assessment Date Assessment LastModified by Organization Details LastModified Time 10/08/2023 10/08/2023 Assessment: Mild OSAHS, AHI = 12 Early REM onset PLMD Plan: The following were reviewed and explained to the patient: [facility] night 1 sleep study 03/20/22 sleep onset = 51 minutes, REM onset = 56.5 minutes, AHI = 12, supine AHI = 18, REM AHI = 42 [facility] night 2 sleep study 05/22/22 Wang & [...] carrier. Patient will setup an appointment with [facility] for supplies and pressure adjustments. A major [...] (PROC ) No observ ation record ed. [id number] [facility] [address] [place], [address], 10/17/2022 22:07:54 05/24/20 22 05/22/2022 polys omnog ramon, titra tion study No observ ation record ed. [id number] [facility] [address] [place], [address], 10/17/2022 22:07:54 Result Notes None recorded. Problems Name Problem SNOMED Code Status Onset Date Resolution Date Notes Provider Name and Address Organization Details Recorded Time Obstructive sleep apnea syndrome 57480488 Active 2023 Les Pace MD [address] [facility] [address], [place], [address], [facility] [employer] [facility] 4 16:16:50 Periodic limb movement disorder 284621809 Active 2023 Les Pace MD [address] [facility], [facility] [address], [place], [address], [facility] [employer] 16:17:09 Notes:Medical History: Panic disorder Bruxism Early REM onset Obesity with mild OSAHS, AHI = 12, 03/20/22, on CPAP c/o IVRC Hypothyroidism Hypertension T2DM ASHANTI PLMD Procedure History: Right lower back lipoma excision 2020 Problem Notes None recorded. Procedures Surgical History Date Name Laterality Status Provider Name and Address Organization Details Recorded Time other completed Not Available [facility] 08[facility]20[facility] 22:05:55 Imaging Results Imaging Date Name Status [facility]Modified by [facility] Details LastModified Time 03/20/2022 polysomnography , diagnostic (PROC) completed [id number] [facility] [address] [place], [address], 10/17/2022 22:07:54 05/22/2022 polysomnogram, titration study completed [id number] [facility] [address] [place], [address], 10/17/2022 22:07:54 Procedure Notes None recorded. Medical [...] [degF] 97.9 [degF] 97.7 [degF] 98.3 [degF] 444332. 72 g 738313. 62 g 520668. 35 g 916212. 9 g 138 mm[Hg] 90 mm[Hg] 134 mm[Hg] 78 mm[Hg] 122 mm[Hg] 88 mm[Hg] 126 mm[Hg] 86 mm[Hg] Not Available [facility] 3 22:06:21 Date Recorded Body height Body mass index (BMI) Body weight Body temperature Oxygen saturation Oxygen saturation in Arterial blood by Pulse oximetry Systolic blood pressure Diastolic blood pressure Provider Name and Address Organization Details Last Updated DateTime 4 167.64 cm 39.9 kg/m2 572313. 75 g 98 [degF] 98 % 98 % 106 mm[Hg] 66 mm[Hg] Naa Stevenson MA [employer] 4 15:43:46 Date Recorded Heart rate Heart rate Respiratory rate Provider Name and Address Organization Details Last Updated DateTime 10/08/2023 101 /min 101 /min 15 /min Les Pace MD [address] [facility], [facility] [address], [place], [address], [employer] 10/08/2023 16:22:36 Social History Question Answer Notes LastModified by Organizat ion Details LastModified Time Tobacco Smoking Status Former Smoker Not Available [facility] 10/17/2022 22:05:46 What Is Your Level Of Alcohol Consumption? Occasional [id number].[id number] [id number] Information not available 10/17/2022 What Is Your Level Of Caffeine Consumption? Occasional MIGRATION.69930 [id number] Information not available 10/17/2022 In The 14 Days Before Symptom Onset, Have You Had Close Contact With A Laboratory-confi rmed COVID-19 While That Case Was Ill? No MIGRATION.08680 43084 Information not available 10/17/2022 In The 14 Days Before Symptom Onset, Have You Had Close Contact With A Person Who Is Under Investigation For COVID-19 While That Person Was Ill? No MIGRATION.03381 24863 Information not available 10/17/2022 What Type Of Diet Are You Following? REGULAR MIGRATION.11509 30977 Information not available 10/17/2022 Do You Or Have You Ever Used E-cigarettes Or Vape? Never Used Electronic Cigarettes MIGRATION.08627 38970 Information not available 10/17/2022 Do You Have An Electrostatic Air Filter? No MIGRATION.54869 81821 Information not available 10/17/2022 What Is Your Occupation? None MIGRATION.92984 67020 Information not available 10/17/2022 When Did You Quit Smoking? 1-5yearssincelastci yudith MIGRATION.13525 17754 Information not available 10/17/2022 Are There Any Guns Present In Your Home? No MIGRATION.45614 32961 Information not available 10/17/2022 Do You Have A Humidifier? No MIGRATION.78081 30641 Information not available 10/17/2022 Where Do You Live? [place] MIGRATION.19251 61846 Information not available 10/17/2022 Do You Have Moisture Problems In Your Home? Yes MIGRATION.45882 74429 Information not available 10/17/2022 What Was The Date Of Your Most Recent Tobacco Screening? 10/08/2023 Information not available 10/08/2023 Do You Have Any Pets? Yes MIGRATION.10091 40330 Information not available 10/17/2022 What Is Your Relationship Status? Information not available 10/08/2023 Do You Use Your Seat Belt Or Car Seat Routinely? Yes Information not available 10/08/2023 Do You Have Smoke And Carbon Monoxide Detectors In Your Home? No MIGRATION.67086 46972 Information not available 10/17/2022 At What Age Did You Start Smoking Tobacco? 9 Information not available 10/08/2023 Are You Passively Exposed To Smoke? No MIGRATION.27373 97274 Information not available 10/17/2022 Do You Or Have You Ever Used Smokeless Tobacco? Never Used Smokeless Tobacco MIGRATION.73594 75130 Information not available 10/17/2022 Do You Feel Stressed (tense, Restless, Nervous, Or Anxious, Or Unable To Sleep At Night)? [id number] Information not available 10/08/2023 Do You Use Any Illicit Or Recreational Drugs? No MIGRATION.31972 65165 Information not available 10/17/2022 Do You Use Sunscreen Routinely? Yes MIGRATION.35259 90193 Information not available 10/17/2022 How Many Years Have You Smoked Tobacco? 8 Information not available 10/08/2023 Have You Recently Traveled Abroad? No MIGRATION.17265 54956 Information not available 10/17/2022 Do You Or Have You Ever Used Any Other Forms Of Tobacco Or Nicotine? No Information not available 10/08/2023 Sex: Unknown Functional Status None recorded. Mental Status None recorded. Family History Relationship Description Onset Age of this Age Resolved Age Notes LastModified by Organization Details LastModified Time Father Hypertensive disorder MIGRATION.515 [id number] Not available 10/17/2022 22:05:57 Father Diabetes mellitus MIGRATION.644 [id number] Not available 10/17/2022 22:05:57 Maternal Grandmother Diabetes mellitus MIGRATION.094 [id number] Not available 10/17/2022 22:05:57 Mother Epilepsy MIGRATION.597 [id number] Not available 10/17/2022 22:05:57 Medical History Condition Response HEARTBURN / REFLUX Y ASTHMA Y DEPRESSION (INCLUDING POST ) Y THYROID DISEASE Y HYPERTENSION Y ANXIETY DISORDER Y Gynecological HistoryNo gynecological history recorded. Obstetrics History GPAL:G 0 P 0 0 0 0 Past Encounters Encounter ID Performer Location Encounter Start Date Encounter Closed Date Diagnosis/Indication Diagnosis SNOMED-CT Code Diagnosis ICD10 Code Diagnosis Note [id number] [facility] [address] [facility] [address] [address] 02/28/2021 00:00:00 03/07/2021 15:18:03 [id number] [facility] [address] [facility] [address] [address] 03/14/2021 00:00:00 03/14/2021 13:30:23 [id number] [facility] [place] [address] [place] [address] 01/30/2022 00:00:00 01/30/2022 12:40:59 [id number] [facility] [place] [address] [place] [address] 03/27/2022 00:00:00 03/27/2022 10:24:14 [id number] [facility] [place] [address] [address] 06/04/2022 00:00:00 06/04/2022 10:17:53 [id number] [facility] [place] [address] [address] 06/18/2022 00:00:00 06/18/2022 11:11:02 [id number] [facility] [place] [address] [address] 10/08/2022 00:00:00 10/08/2022 15:10:05 [id number] Les Pace MD [facility] [place] [address] [address] 10/08/2023 15:33:52 10/09/2023 08:50:28 Obstructive sleep apnea syndrome 20381685 G47.33 Periodic l imb movement disorder 955408801 G47.61 Health Concerns Section Related Observation LastModified by Organization Detai ls LastModified Time None Recorded Concern Status LastModified by Organization Details LastModified Time None Recorded Advance Directives Directive None Recorded Payers Encounter Date Sequence Insurance Name Policy Number Policy Boggs Covered Member ID Boggs Member ID Guarantor Name 10/08/2023 1 [employer] (MEDICARE REPLACEMENT HMO) [id number] Deann Quezada [id number] Deann Quezada 10/08/2023 2 [place] WHEN MEDICARE OR MEDICARE REPLACEMENT PRIMARY) Deann Granadosr [id number] Deann Quezada Notes Date Note Type Note Provider Name and Address Organization Details Recorded Time 10/08/2023 text/html Primary care/Ref erring provider: NYA Gates-DAGOBERTOuring the [facility] night 1 sleep study on 03/20/22, the [...] hose/mask condensation with water.The patient wears a [employer] medium Eson 2 nasal mask without chin [...] moderate chance of dozing. Les Pace MD [address] [place] [address], [place], [address], [facility] 10/08/2023 16:23:09 OBGyn Episode No OBEpisode recorded.
--- OUTSIDE RECORDS SUMMARY | 2024-10-02 10:00 | XMS_ITS | Referral Summary ---
Author Organization [facility] [employer] Address [address] [facility] [place] [address] Care Team Providers Care Manager Er Name Role Phone Dana Chery PA-C Primary Care Provider Source Comments [facility] [employer],non-owned Affiliates and Associated Physician Practices is amultiple site organization consisting of ambulatory clinics and hospital sitesin [place], [place], [place] and [place]. This disclosure is being madepursuant to the Care Everywhere program and may not contain all information available regarding this patient. Last updated 18.[facility] [employer] Allergies No known active allergies Medications * [...] Comments Blood Pressure 135/86 06/29/2024 1:32 PM BEHAVIORAL HEALTH CLINICIAN Pulse 69 06/29/2024 1:32 PM BEHAVIORAL HEALTH CLINICIAN Temperature 35.9 C (96.7 F) 06/29/2024 1:32 PM BEHAVIORAL HEALTH CLINICIAN Respiratory Rate 16 02/12/2024 11:21 AM CDT Oxygen Saturation 96% 06/29/2024 1:32 PM BEHAVIORAL HEALTH CLINICIAN Inhaled Oxygen Concentration - - Weight 108.9 kg (240 lb) 06/29/2024 1:32 PM BEHAVIORAL HEALTH CLINICIAN Height 167.6 cm (5' 6 ) 06/29/2024 1:32 PM BEHAVIORAL HEALTH CLINICIAN Body Mass Index 38.74 06/29/2024 1:32 PM BEHAVIORAL HEALTH CLINICIAN Plan of Treatment Not on file Care Teams Manager Er Relationship Specialty Start Date End Date Dana Chery PA-C [address] [place] [phone] PCP - General 01/30/24
[2024-10-02 11:21] VITALS: PULSE 86; RESP 20; O2SAT 100
[2024-10-02] MEDS: ONDANSETRON INJ 4 MG/2 ML VIAL IV PUSH (11:30)
[2024-10-02] MEDS: SODIUM CHLORIDE 0.9% IV 1,000 ML 999 ML IV CONT (11:30)
[2024-10-02] MEDS: LORazepam INJ (*CRX) 2 MG/ML VIAL 0.5 MG IV PUSH (11:32)
--- OUTSIDE RECORDS SUMMARY | 2024-10-02 11:37 | XMS_ITS | Referral Summary ---
Author Organization [facility] Physician Office Building [address] [place] [address] Care Team Providers Care Federal Court Of Appeals Law Clerk Name Role Phone Rosie Lincoln Primary Care [...] meds. Assessment & Plan (08/30/2020 4:34 PM DOUGH SHEETER): Recheck TSH, free T4 and adjust dose of levothyroxine accordingly I explained to the patient reported taking the medication in the mornings on an empty stomach 1 hour apart from food PCOS (polycystic ovarian syndrome) 08/30/2020 Assessment & Plan (03/21/2021 4:10 PM CDT): Diet and exercise Continue Metformin Assessment & Plan (08/30/2020 4:34 PM DOUGH SHEETER): Diet and exercise at the cornerstone of the treatment of PCOS with discussed Risk of progression to full blown diabetes also was discussed 30 to 45 minute daily aerobic and resistance exercise was advised Low-calorie low carb diet Continue metformin Resolved Problems Problem Noted Date Diagnosed Date Resolved Date Hyperprolactinemia (CMS/HCC) 08/30/2020 03/21/2021 Assessment & Plan (08/30/2020 4:33 PM DOUGH SHEETER): Could be related to hypothyroidism and /or [...] on file Legal Sex Female 9:27 AM DOUGH SHEETER Gender Identity Not on file Sexual Orientation [...] Plan of Treatment Not on file [place] [address] [place] [address] [facility] GOLD REF Care Teams [employer] Law Clerk Relationship Specialty Start Date End Date Rosie Lincoln PA [address] [place] [address] PCP - General Physician Heavy Threader 03/21/21
--- OUTSIDE RECORDS SUMMARY | 2024-10-02 11:37 | XMS_ITS | Clinical Summary ---
Author Organization [facility] Physician Office Building [address] [place] [address] Care Team Providers Care Emr Implementation Specialist Name Role Phone Rosie Lincoln Primary Care Provider [phone] Allergies No known active allergies Medications metFORMIN [...] meds. Assessment & Plan (08/30/2020 4:34 PM DENTAL SECRETARY): Recheck TSH, free T4 and adjust dose of levothyroxine accordingly I explained to the patient reported taking the medication in the mornings on an empty stomach 1 hour apart from food PCOS (polycystic ovarian syndrome) 08/30/2020 Assessment & Plan (03/21/2021 4:10 PM CDT): Diet and exercise Continue Metformin Assessment & Plan (08/30/2020 4:34 PM DENTAL SECRETARY): Diet and exercise at the cornerstone of the treatment of PCOS with discussed Risk of progression to full blown diabetes also was discussed 30 to 45 minute daily aerobic and resistance exercise was advised Low-calorie low carb diet Continue metformin Resolved Problems Problem Noted Date Diagnosed Date Resolved Date Hyperprolactinemia (CMS/HCC) 08/30/2020 03/21/2021 Assessment & Plan (08/30/2020 4:33 PM DENTAL SECRETARY): Could be related to hypothyroidism and /or [...] on file Legal Sex Female 9:27 AM DENTAL SECRETARY Gender Identity Not on file Sexual Orientation [...] patient's age to complete this topic Insurance [facility] [employer] [facility] GOLD REF Care Teams Emr Implementation Specialist Relationship Specialty [place] [address] [place] [address] PCP - General Physician Human Resource Officer 03/21/21
--- OUTSIDE RECORDS SUMMARY | 2024-10-02 11:37 | XMS_ITS | Patient Health Summary ---
Author Organization [facility] [employer] Address [address] [facility] [place] [address] Care Team Providers Care Marketing Lead Name Role Phone Dana Chery PA-C Primary Care Provider [phone] Note from [facility],non-owned Affiliates and Associated Physician Practices is amultiple site organization consisting of ambulatory clinics and hospital sitesin [place], [place], [place] and [place]. This disclosure is being madepursuant to the Care Everywhere program and may not contain all information available regarding this patient. Last updated 18.[facility] Allergies No known active allergies Medications * [...] Comments Blood Pressure 135/86 06/29/2024 1:32 PM CHECKER IN Pulse 69 06/29/2024 1:32 PM CHECKER IN Temperature 35.9 C (96.7 F) 06/29/2024 1:32 PM CHECKER IN Respiratory Rate 16 02/12/2024 11:21 AM CDT Oxygen Saturation 96% 06/29/2024 1:32 PM CHECKER IN Inhaled Oxygen Concentration - - Weight 108.9 kg (240 lb) 06/29/2024 1:32 PM CHECKER IN Height 167.6 cm (5' 6 ) 06/29/2024 1:32 PM CHECKER IN Body Mass Index 38.74 06/29/2024 1:32 PM CHECKER IN Procedures * URINALYSIS AUTO - POINT OF [...] - [facility] [address] Specific [place] UA 1.[address] [facility] [address] Blood [...] 02/12/2024 1 1:29 AM CDT Laurita Suarez SUPERVISING NURSE-FIELD CARE COORDINATOR LAB - POINT OF CARE ORDERABLES JORYRE [address] [place] [address], [facility] [phone] Care Teams Marketing Lead Relationship Specialty Start Date End Date Dana Chery PA-C [address] [place] [phone] PCP - General 01/30/24
--- OUTSIDE RECORDS SUMMARY | 2024-10-02 11:37 | XMS_ITS | Referral Summary ---
Author Organization [facility] Address [address] [facility] [place] [address] Care Team Providers Care Assurance Services Manager Health Care Name Role Phone Dana Chery PA-C Primary Care Provider Source Comments [facility],non-owned Affiliates and Associated Physician Practices is amultiple site organization consisting of ambulatory clinics and hospital sitesin [place], [place], [place] and [place]. This disclosure is being madepursuant to the Care Everywhere program and may not contain all information available regarding this patient. Last updated 18.[facility] Allergies No known active allergies Medications * [...] Comments Blood Pressure 135/86 06/29/2024 1:32 PM ASSISTANT MECHANIC Pulse 69 06/29/2024 1:32 PM ASSISTANT MECHANIC Temperature 35.9 C (96.7 F) 06/29/2024 1:32 PM ASSISTANT MECHANIC Respiratory Rate 16 02/12/2024 11:21 AM CDT Oxygen Saturation 96% 06/29/2024 1:32 PM ASSISTANT MECHANIC Inhaled Oxygen Concentration - - Weight 108.9 kg (240 lb) 06/29/2024 1:32 PM ASSISTANT MECHANIC Height 167.6 cm (5' 6 ) 06/29/2024 1:32 PM ASSISTANT MECHANIC Body Mass Index 38.74 06/29/2024 1:32 PM ASSISTANT MECHANIC Plan of Treatment Not on file Care Teams Assurance Services Manager Health Care Relationship Specialty Start Date End Date Dana Chery PA-C [address] [place] [id number] PCP - General 01/30/24
--- OUTSIDE RECORDS SUMMARY | 2024-10-02 11:37 | XMS_ITS | Clinical Summary ---
Author Organization [facility] Address [address] [place] [address] Care Team Providers Care Screwhead Polisher Name Role Phone Rosie Lincoln PA-C Primary [...] this topic Insurance MEDICAID AETNA Care Teams Screwhead Polisher Relationship Specialty Start Date End Date Rosie Lincoln PA-C [address] [place] [address] PCP - General PHYSICIAN INTERNAL COMBUSTION ENGINE INSPECTOR 12/13/21
--- OUTSIDE RECORDS SUMMARY | 2024-10-02 11:37 | XMS_ITS | Clinical Summary ---
Author Organization [facility] Address [address] [place] [address] Care Team Providers Care Make Up Editor Name Role Phone Dana Chery PA-C Primary Care Provider [phone] Source Comments [facility],non-owned Affiliates and Associated Physician Practices is amultiple site organization consisting of ambulatory clinics and hospital sitesin [place], [place], [place] and [place]. This disclosure is being madepursuant to the Care Everywhere program and may not contain all information available regarding this patient. Last updated 18.[facility] Allergies No known active allergies Medications * [...] Comments Blood Pressure 135/86 06/29/2024 1:32 PM STRUCTURAL METAL FABRICATOR APPRENTICE Pulse 69 06/29/2024 1:32 PM STRUCTURAL METAL FABRICATOR APPRENTICE Temperature 35.9 C (96.7 F) 06/29/2024 1:32 PM STRUCTURAL METAL FABRICATOR APPRENTICE Respiratory Rate 16 02/12/2024 11:21 AM CDT Oxygen Saturation 96% 06/29/2024 1:32 PM STRUCTURAL METAL FABRICATOR APPRENTICE Inhaled Oxygen Concentration - - Weight 108.9 kg (240 lb) 06/29/2024 1:32 PM STRUCTURAL METAL FABRICATOR APPRENTICE Height 167.6 cm (5' 6 ) 06/29/2024 1:32 PM STRUCTURAL METAL FABRICATOR APPRENTICE Body Mass Index 38.74 06/29/2024 1:32 PM STRUCTURAL METAL FABRICATOR APPRENTICE Plan of Treatment Health Maintenance Due Date [...] age to complete this topic Care Teams Make Up Editor Relationship Specialty Start Date End Date Dana Chery PA-C [address] [place] [address] PCP - General 01/30/24
[2024-10-02 11:45] LABS: Basophils Percent Auto 0.2 % (0.2-1.2); Hematocrit 43.4 % (37.0-47.0); Hemoglobin 14.7 g/dL (12.0-15.0); Immature Granulocyte Absolute 0.06 K/mm3 (0.00-0.031); Immature Granulocyte Percent A 0.5 % (0-0.5); Lymphocytes Absolute Auto 0.73 K/mm3 (0.9-3.2); Lymphocytes Percent Auto 5.7 % (18.3-44.2); Mean Corpuscular HGB Conc 33.9 g/dl (32-36); Mean Corpuscular Hemoglobin 30.1 pg (26-34); Mean Corpuscular Volume 88.8 fl (80-100); Mean Platelet Volume 10.7 fl (7.4-10.4); Monocytes Absolute Auto 1.3 K/mm3 (0.1-0.6); Monocytes Percent Auto 9.8 % (2.6-8.5); Neutrophils Absolute Auto 10.7 K/mm3 (1.3-6.7); Neutrophils Percent Auto 83.8 % (45.5-73.1); Platelet Count Result 219 k/mm3 (150-375); Red Blood Count 4.89 M/mm3 (4.2-5.4); Red Cell Distribution Width 12.1 % (11.5-14.5); White Blood Count 12.8 K/mm3 (4.5-10.0)
[2024-10-02 11:52] LABS: Alanine Aminotransferase 35 U/L (6-35); Albumin Level 4.5 g/dL (3.5-5.1); Alkaline Phosphatase 83 U/L (38-126); Anion Gap 12 mmol/L (4-12); Aspartate Amino Transferase 31 U/L (14-36); Bilirubin,Total 0.5 mg/dL (0.2-1.3); Blood Urea Nitrogen 8 mg/dL (7-17); Calcium 8.8 mg/dL (8.4-10.2); Carbon Dioxide 25 mmol/L (22-30); Chloride 101 mmol/L (98-107); Estimated CRCL calculation 143 ml/min; Estimated Glomerular Filt Rate > 60; Glucose 98 mg/dL (65-110); Potassium 3.8 mmol/L (3.4-5.0); Sodium 138 mmol/L (137-145)
[2024-10-02 11:55] LABS: Add Urine Microscopic? YES; Appearance Urine Cloudy (Clear); Bacteria Urine 1+ /hpf; Bilirubin Urine 1+ (Negative); Blood Urine Negative (Negative); Color Urine Dark Yellow (Yellow); Glucose Urine UA Trace mg/dL (Negative); Hyaline Casts Urine Present /lpf; Ketones Urine Trace mg/dL (Negative); Leukocyte Esterase Ur Negative LEU/UL (Negative); Mucus Urine Present /lpf; Need Manual Microscopic Reviewed; Nitrate Urine Negative (Negative); Non Pathogenic Casts >20; Protein Urine 2+ mg/dL (Negative); Specific Grav Ur 1.035 (1.001-1.035); Squamous Epithelial Cell Urine Moderate /hpf (Few)
--- NOTE | 2024-10-02 12:39 | ED.NAVMDI ---
HPI - Nausea/Vomiting/Diarrhea General Chief complaint: Nausea/Vomiting/Diarrhea Stated complaint: n/v x 3 days Time Seen by Provider: 10/02/24 10:55 Source: patient Mode of arrival: ambulatory Limitations: no limitations History of Present Illness HPI Narrative: 24-year-old with a history of hypertension, diabetes, anxiety disorder here with the complaints of nausea, vomiting, diarrhea, feeling lightheaded since this morning she states the symptoms started 3 days ago when she was diagnosed with flu. However this morning when she woke up she felt lightheaded dizzy and are arms or tingly. She denies any chest pain or shortness of breath or abdominal pain. MD elicited complaint: nausea, vomiting and diarrhea Onset (ago): day(s) (3) Description of diarrhea: watery Location of pain: none Related Data Home Medications ?Medication ?Instructions ?Recorded ?Confirmed ?Last Taken ?Type amlodipine 5 mg tablet 5 mg PO 08/27/23 10/08/23 Unknown History fluoxetine 40 mg capsule 40 mg PO 08/27/23 10/08/23 Unknown History fluticasone propionate 50 intranasal 08/27/23 10/08/23 Unknown History mcg/actuation nasal spray,suspension levothyroxine 100 mcg tablet 100 mcg PO 08/27/23 10/08/23 Unknown History lisinopril 40 mg tablet 40 mg PO 08/27/23 10/08/23 Unknown History prazosin 1 mg capsule 1 mg PO 08/27/23 10/08/23 Unknown History atomoxetine 40 mg capsule 40 mg PO 10/08/23 10/08/23 Unknown History Allergies Allergy/AdvReac Type Severity Reaction Status Date / Time No Known Allergies Allergy Verified 10/02/24 09:59 Review of Systems Review of Systems: All systems reviewed & are unremarkable except as noted in HPI and below Constitutional: Constitutional: Reports no additional constitutional complaints Eyes: Eyes: Reports no additional eye complaints ENT: Reports system reviewed and no additional complaints, except as documented Cardiovascular: Cardiovascular: Reports no additional cardiovascular complaints Respiratory: Respiratory: Reports no additional respiratory complaints Gastrointestinal: Gastrointestinal: Reports as per HPI Musculoskeletal: Musculoskeletal: Reports no additional musculoskeletal complaints Integumentary/Breasts: Skin/Breast: Reports system reviewed and no additional complaints, except as docu Neurologic: Reports system reviewed and no additional complaints, except as documented [facility] Past Medical History Medical History Hypothyroid Anxiety Depression Hypertension PCOS (polycystic ovarian syndrome) Surgical History Surgical History H/O wisdom tooth extraction History of delivery Family History Family History Mother Cervical cancer Grandparent Ovarian cancer Social History Social History Smoking status: Never smoker Alcohol intake: current Alcohol use details: rare Substance use: former Substance use type: marijuana Do You Feel Safe in your Home?: Yes Lack of Transportation: No Lack of Food: Never True Current Housing: I Have Housing Concerned About Future Housing: No Difficulty Paying Gas/Electric Bills: Decline to Answer Difficulty Paying for Meds: No Currently Unemployed: No Education: High School Diploma/GED Difficulty w/ Childcare or Family Care: No Living arrangements: with family Occupation/Education: unemployed Gender identity (if verbalized by the patient): Female Sexual Orientation (if Verbalized by the Patient): Straight or Heterosexual Exam Narrative: GENERAL: Well-appearing, well-nourished, and in no acute distress, anxious HEAD: Normocephalic, atraumatic. EYES: PERRLA and EOMI.. NECK: Supple. CHEST: Clear to auscultation. No respiratory distress. HEART: Regular rate and rhythm. No murmur heard. Normal peripheral pulses. ABDOMEN: Soft, nontender, nondistended, normal active bowel sounds. EXTREMITIES: Normal range of motion. No edema. SKIN: Warm, dry, no rash. NEURO: No focal deficits. Alert and oriented x3. PSYCH: Normal mood and affect. Course Course Emergency Course: Patient feeling much better after IV fluids and Ativan her nausea is much subsided after IV Zofran. Informed her about the lab work. Advised her to continue to take Zofran as needed, rest, follow-up with the primary doctor. Vital Signs Vital signs: Vital Signs Temperature 37.0 C 10/02/24 09:54 Pulse Rate 98 10/02/24 09:54 Respiratory Rate 18 10/02/24 09:54 Blood Pressure 126/73 10/02/24 09:54 Pulse Oximetry 98 10/02/24 09:54 Oxygen Delivery Room Air 10/02/24 09:54 Temperature 37.0 C 10/02/24 09:54 Pulse Rate 86 10/02/24 11:21 Respiratory Rate 20 10/02/24 11:21 Blood Pressure 126/73 10/02/24 09:54 Pulse Oximetry 100 10/02/24 11:21 Oxygen Delivery Room Air 10/02/24 09:54 MDM - Nausea/Vomiting/Diarrhea Lab Data 10/02/24 11:28 10/02/24 11:28 Labs: Lab Results 10/02/24 Range/Units 11:28 WBC 12.8 H (4.5-10.0) K/mm3 RBC 4.89 (4.2-5.4) M/mm3 Hgb 14.7 (12.0-15.0) g/dL Hct 43.4 (37.0-47.0) % MCV 88.8 (80-100) fl MCH 30.1 (26-34) pg MCHC 33.9 (32-36) g/dl RDW 12.1 (11.5-14.5) % Plt Count 219 (150-375) k/mm3 MPV 10.7 H (7.4-10.4) fl Immature Gran % (Auto) 0.5 (0-0.5) % Neut % (Auto) 83.8 H (45.5-73.1) % Lymph % (Auto) 5.7 L (18.3-44.2) % Coffey % (Auto) 9.8 H (2.6-8.5) % Eos % (Auto) 0.0 (0-4.4) % Baso % (Auto) 0.2 (0.2-1.2) % Lymph # (Auto) 0.73 L (0.9-3.2) K/mm3 Coffey # (Auto) 1.3 H (0.1-0.6) K/mm3 Eos # (Auto) 0.0 (0-0.3) K/mm3 Baso # (Auto) 0.0 (0.0-0.1) K/mm3 Abs Immat Gran (auto) 0.06 H (0.00-0.031) K/mm3 Absolute Neuts (auto) 10.7 H (1.3-6.7) K/mm3 Absolute Nucleated RBC 0.000 (0.0-0.012) K/mm3 Nucleated RBC % 0.0 (0.0-0.2) % Sodium 138 (137-145) mmol/L Potassium 3.8 (3.4-5.0) mmol/L Chloride 101 (98-107) mmol/L Carbon Dioxide 25 (22-30) mmol/L Anion Gap 12 (4-12) mmol/L BUN 8 (7-17) mg/dL Creatinine 0.63 L (0.7-1.0) mg/dL Estim Creat Clear Calc 143 ml/min Estimated GFR > 60 (59 - ) Glucose 98 (65-110) mg/dL Calcium 8.8 (8.4-10.2) mg/dL Total Bilirubin 0.5 (0.2-1.3) mg/dL AST 31 (14-36) U/L ALT 35 (6-35) U/L Alkaline Phosphatase 83 (38-126) U/L Total Protein 8.0 (6.3-8.2) g/dL Albumin 4.5 (3.5-5.1) g/dL Urine Color Dark yellow (Yellow) Urine Appearance Cloudy H (Clear) Urine pH 6.0 (5.0-9.0) Ur Specific [place] 1.035 (1.001-1.035) Urine Protein 2+ H (Negative) mg/dL Urine Glucose (UA) Trace H (Negative) mg/dL Urine Ketones Trace H (Negative) mg/dL Ur Blood (Man) Negative (Negative) Urine Nitrate Negative (Negative) Urine Bilirubin 1+ H (Negative) Urine Urobilinogen 1.0 (<2.0) mg/dL Add Ur Microanalysis Reviewed Leukocyte Esterase Rfl Negative (Negative) FADY/UL Urine RBC 11-20 H (0-2) /hpf Urine WBC 6-10 H (0-3) /hpf Ur Squamous Epith Cells Moderate (Few) /hpf Urine Bacteria 1+ H /hpf Urine Casts >20 Hyaline Casts Present (None) /lpf Urine Mucus Present /lpf Discharge Plan Discharge Clinical Impression: Gastroenteritis, Anxiety Patient Disposition: Home, Self-Care Condition: Stable Instructions: Acute Nausea and Vomiting (ED) Patient Language: Syriac Prescriptions: New ondansetron 4 mg tablet,disintegrating 4 mg PO Q6-8H PRN (Reason: nausea and vomiting) Qty: 14 0RF No Action atomoxetine 40 mg capsule 40 mg PO levothyroxine 100 mcg tablet 100 mcg PO prazosin 1 mg capsule 1 mg PO lisinopril 40 mg tablet 40 mg PO amlodipine 5 mg tablet 5 mg PO fluoxetine 40 mg capsule 40 mg PO fluticasone propionate 50 mcg/actuation spray,suspension intranasal ondansetron 4 mg tablet,disintegrating 4 mg PO Q8H PRN (Reason: nausea and vomiting) Qty: 12 0RF ibuprofen 600 mg tablet 600 mg PO TID PRN (Reason: pain) Qty: 20 0RF acetaminophen 500 mg capsule 1,000 mg PO Q6H PRN (Reason: pain) Qty: 20 0RF norethindrone (contraceptive) 0.35 mg tablet 0.35 mg PO DAILY Qty: 84 3RF metformin 500 mg tablet See Rx Instructions .ROUTE .COMPLEX Qty: 90 2RF Dose Instruction: TAKE 1 TABLET BY MOUTH DAILY Rx Instructions: TAKE 1 TABLET BY MOUTH DAILY spironolactone 50 mg tablet See Rx Instructions .ROUTE .COMPLEX Qty: 180 2RF Dose Instruction: TAKE 1 TABLET BY MOUTH TWICE DAILY Rx Instructions: TAKE 1 TABLET BY MOUTH TWICE DAILY Follow-up/Referrals: Vik,NYA Cortez [Primary Care Provider] -
[2024-10-02 12:50] VITALS: BP 123/78; PULSE 60; RESP 14; O2SAT 96
== END 2024-10-02 12:50 | disposition home or self-care (01) ==
PROVIDERS: Emergency Provider Family Medicine; PCP Physician Assistant
DX: K52.9 Noninfective gastroenteritis and colitis, unspecified (principal); F41.9 Anxiety disorder, unspecified; I10 Essential (primary) hypertension; E11.9 Type 2 diabetes mellitus without complications; E28.2 Polycystic ovarian syndrome; E03.9 Hypothyroidism, unspecified; F32.A Depression, unspecified; Z79.84 Long term (current) use of oral hypoglycemic drugs; Z79.899 Other long term (current) drug therapy
CPT/HCPCS: 36415; 80053; 81001; 85025; 96361; 96374; 96375; 99284; J2060; J2405; J7030

== ENCOUNTER 2025-01-10 13:00 | Emergency (ER) | payer MEDICARE, MEDICAID, SELFPAY ==
--- NOTE | ~2025-01-10 | CT_ITS ---
CT abdomen pelvis w con Ordering provider: Larissa Miramontes APRN History: 24 years Female with . LLQ abdominal pain, flank pain . Comparison: December 01, 2022 Technique: CT abdomen and pelvis with IV and without oral contrast. Automated exposure control and it erative reconstruction technique were employed. The dose-length product was 1334.25 mGy-cm. 100 mL Om nipaque 350 was given IV. Findings: VISUALIZED LOWER CHEST: Normal. UPPER ABDOMINAL ORGANS: Liver: Fat infiltration. Hepatomegaly. Gallbladder: Normal. Spleen: Normal. Stomach/duodenum: Normal. Pancreas: Normal. Adrenals: Normal. Kidneys: Normal. PELVIC ORGANS: The bladder is underfilled with slightly thickened wall. Evaluation for cystitis advis ed.. BOWEL AND MESENTERY: Colon: No evidence of diverticulitis.. Fecal material is loaded in the colon. Normal appendix. Small Bowel: Normal. No obstruction. Peritoneum/mesentery: No free air or free fluid. No mesenteric lymphadenopathy. RETROPERITONEUM: Normal aorta. No retroperitoneal lymphadenopathy. MUSCULOSKELETAL: Superficial soft tissues: Small fat-containing umbilical hernia. The superficial soft tissues are nor mal. Bones: Normal spine. IMPRESSION: 1. No evidence of appendicitis, diverticulitis or intestinal obstruction. 2. Constipation. 3. Hepatomegaly with fat infiltration Reviewed, dictated and finalized at location A.
--- OUTSIDE RECORDS SUMMARY | 2025-01-10 13:02 | XMS_ITS | Referral Summary ---
Author Organization [facility] [address] [place] [id number] Care Team Providers Care Federal District Law Clerk Name Role Phone Rosie Lincoln Primary Care Provider [phone] Allergies No known active allergies Medications metFORMIN [...] meds. Assessment & Plan (08/30/2020 4:34 PM INDUSTRIAL EQUIPMENT MECHANIC): Recheck TSH, free T4 and adjust dose of levothyroxine accordingly I explained to the patient reported taking the medication in the mornings on an empty stomach 1 hour apart from food PCOS (polycystic ovarian syndrome) 08/30/2020 Assessment & Plan (03/21/2021 4:10 PM CDT): Diet and exercise Continue Metformin Assessment & Plan (08/30/2020 4:34 PM INDUSTRIAL EQUIPMENT MECHANIC): Diet and exercise at the cornerstone of the treatment of PCOS with discussed Risk of progression to full blown diabetes also was discussed 30 to 45 minute daily aerobic and resistance exercise was advised Low-calorie low carb diet Continue metformin Resolved Problems Problem Noted Date Diagnosed Date Resolved Date Hyperprolactinemia (CMS/HCC) 08/30/2020 03/21/2021 Assessment & Plan (08/30/2020 4:33 PM INDUSTRIAL EQUIPMENT MECHANIC): Could be related to hypothyroidism and /or [...] on file Legal Sex Female 9:27 AM INDUSTRIAL EQUIPMENT MECHANIC Gender Identity Not on file Sexual Orientation [...] Plan of Treatment Not on file [place] [address] [place] [address] [facility] Care Teams Federal District Law Clerk Relationship Specialty Start Date End Date Rosie Lincoln PA [address] [place] [address] PCP - General Physician Cocoa Bean Roaster 03/21/21
--- OUTSIDE RECORDS SUMMARY | 2025-01-10 13:02 | XMS_ITS | Clinical Summary ---
Author Organization [facility] Address [address] [facility] [place] [address] Care Team Providers Care Cork Tile Floor Layer Name Role Phone Dana Chery PA-C Primary Care Provider Source Comments [facility],non-owned Affiliates and Associated Physician Practices is amultiple site organization consisting of ambulatory clinics and hospital sitesin [place], [place], [place] and [place]. This disclosure is being madepursuant to the Care Everywhere program and may not contain all information available regarding this patient. Last updated 18.[facility] Allergies No known active allergies Medications * Be aware that medications may not be up to date on this document. Alwaysverify current medications with the patient. albuterol HFA (Proventil; Ventolin; Proair) 108 (90 Base) MCG/ACT inhaler 07/26/2023 Active FLUoxetine (PROzac) 40 MG capsule Active levothyroxine (Synthroid) 100 MCG tablet 08/04/2023 Active lisinopril (Prinivil; Zestril) 40 MG tablet 10/28/2023 Active spironolactone (Aldactone) 50 MG tablet 08/27/2023 Active amphetamine-dext roamphetamine XR 24hr (Adderall XR) 20 MG capsule 01/29/2024 Active ibuprofen (Motrin) 800 MG tablet Active fluticasone propionate (Flonase) 50 MCG/ACT nasal spray as needed Active norethindrone 0.35 MG tablet 06/26/2024 Acti ve cetirizine (ZyrTEC) 10 MG tablet Active Active [...] = 0.6 oz pur e alcohol) Comments Unknown Sex and Gender Information Value Date Recorded Sex Assigned at Not on file Legal Sex Female 3:03 PM WEBBING SUPERVISOR Gender Identity Not on file Sexual Orientation Not on file Last Filed Vital Signs Vital Sign Reading Time Taken Comments Blood Pressure 135/86 06/29/2024 1:32 PM WEBBING SUPERVISOR Pulse 69 06/29/2024 1:32 PM WEBBING SUPERVISOR Temperature 35.9 C (96.7 F) 06/29/2024 1:32 PM WEBBING SUPERVISOR Respiratory Rate 16 02/12/2024 11:21 AM CDT Oxygen Saturation 96% 06/29/2024 1:32 PM WEBBING SUPERVISOR Inhaled Oxygen Concentration - - Weight 108.9 kg (240 lb) 06/29/2024 1:32 PM WEBBING SUPERVISOR Height 167.6 cm (5' 6 ) 06/29/2024 1:32 PM WEBBING SUPERVISOR Body Mass Index 38.74 06/29/2024 1:32 PM WEBBING SUPERVISOR Plan of Treatment Health Maintenance Due Date Last Done Comments PAP SMEAR 1998 HIV SCREENING 2013 HPV VACCINE (1 - 3-dose series) 2013 HEPATITIS C SCREENING 03/12/2016 DTAP/TDAP/TD VACCINES (1 - Tdap) 2017 HEPATITIS B VACCINE (1 of 3 - 19+ 3-dose series) 2017 COVID-19 VACCINE (1 - 202-2 5 season) 2024 DEPRESSION SCREENING 08/19/2024 MEDICARE AWV CALENDAR YEAR 2024 INFLUENZA VACCINE (Season Ended) 2025 ZOSTER VACCINE (1 of 2) 2048 HIB VACCINE Aged Out No longer eligi ble based on patient's age to complete this topic MENINGOCOCCAL (Group B) VACC INE SHARED DECISION-MAKING Aged Out No longer eligibl e based on patient's age to complete this topic MENINGOCOCCAL GROUPS A/C/Y/W VACCINE Aged Out No longer eligible b ased on patient's age to complete this topic PNEUMOCOCCAL VACCINE Aged Out No long er eligible based on patient's age to complete this topic Insurance AETNA MEDICARE ADV Care Teams Cork Tile Floor Layer Relationship Specialty Start Date End Date Dana Chery PA-C [address] [place] [address] PCP - General 01/30/24
--- OUTSIDE RECORDS SUMMARY | 2025-01-10 13:02 | XMS_ITS | Data Portability ---
Author Organization [place] [employer], Main Office Address [address] [place] [address] Assessment Encounter Date Assessment Date Assessment LastModified by Organization Details LastModified Time 10/08/2023 10/08/2023 Assessment: Mild OSAHS, AHI = 12 Early REM onset PLMD Plan: The following were reviewed and explained to the patient: [facility] night 1 sleep study 03/20/22 sleep onset = 51 minutes, REM onset = 56.5 minutes, AHI = 12, supine AHI = 18, REM AHI = 42 [facility] night 2 sleep study 05/22/22 [employer] [...] carrier. Patient will setup an appointment with [facility] for supplies and pressure adjustments. [...] Organization Details Last Modified Time Details Appointments None record ed. Lab None record ed. Referral None record [...] (PROC ) No observ ation record ed. [id number] [facility] [address] [place], [address], 10/17/2022 22:07:54 05/24/20 22 05/22/2022 polys omnog ramon, titra tion study No observ ation record ed. [id number] [facility] [address] [place], [address], 10/17/2022 22:07:54 Result Notes None recorded. Problems Name Problem SNOMED Code Status Onset Date Resolution Date Notes Provider Name and Address Organization Details Recorded Time Obstructive sleep apnea syndrome 44965636 Active 2023 Les Pace MD [address] [facility] [address], [place], [address] , [facility] 16:16:50 Periodic limb movement disorder 973279195 Active 2023 Les Pace MD [address] [facility], [facility] [address], [place], [address], [facility] [employer] 16:17:09 Notes:Medical History: Panic disorder Bruxism Early REM onset Obesity with mild OSAHS, AHI = 12, 03/20/22, on CPAP c/o IVRC Hypothyroidism Hypertension T2DM ASHANTI PLMD Procedure History: Right lower back lipoma excision 2020 Problem Notes None recorded. Procedures Surgical History Date Name Laterality Status Provider Name and Address Organization Details Recorded Time other completed Not Available [facility] 08/2022 22:05:55 Imaging Results Imaging Date Name Status LastModified by Organiz ation Details LastModified Time 03/20/2022 polysomnography , diagnostic (PROC) completed [id number] [facility] [address] [place], [address], 10/17/2022 22:07:54 05/22/2022 polysomnogram, titration study completed [id number] [facility] [address] [place], [address], 10/17/2022 22:07:54 Procedure Notes None recorded. Medical Equipment None Reported. Allergies No known drug allergies Medications Name Sig Start Date Stop Date Status Note LastModified by Organization Details LastModified Time fluoxetine 40 mg capsule active Not Available Not Available Not Available cyclobenzap rine 10 mg tablet active Not Available Not Available Not Available amoxicillin 500 mg capsule TAKE 1 CAPSULE BY MOUTH EVERY 8 HOURS DIRECTED FOR 7 DAYS 10/08 completed Not Available Not Available Not Available metformin 500 mg tablet active Not Available Not Available Not Available clonidine HCl 0.1 mg tablet active Not Available Not Available Not Available nitrofurant oin macrocrysta l 50 mg capsule active Not Available Not Available [...] ot Available ondansetron HCl 8 mg tablet 06/04 completed Not Available Not Available Not Available ondansetron HCl 4 mg tablet 10/08 completed Not Available Not Available Not Available prednisone 20 mg tablet active Not Available Not Available Not Available acetaminoph en 300 mg-codeine 30 mg tablet 10/08 completed Not Available Not Available Not Available ciprofloxac in 250 mg tablet 10/08 completed Not Available Not Available Not Available amlodipine 5 mg tablet active Not Available Not Available Not Available amoxicillin 500 mg tablet 10/08 completed Not Available Not Available Not Available lamotrigine 25 mg tablet active Not Available Not Available Not Available levothyroxi [...] TAKE 1 CAPSULE BY MOUTH ONCE DAILY IN THE MORNING active Not Available Not Available No t Available benzonatate 100 mg capsule TAKE 1 [...] Not Available Not Available Not Available ibuprofen 600 mg tablet active Not Available Not Available Not Available levofloxaci [...] active Not Available Not Available Not Available ondansetron 4 mg disintegrat ing tablet active Not Available Not Available N ot Available fluoxetine 20 mg capsule TAKE 2 [...] completed Not Available Not Available Not Available naproxen 500 mg tablet active Not Available Not Available Not Available spironolact one 50 mg tablet active Not Available Not Available Not Available amoxicillin 875 mg-potassiu m clavulanate 125 mg tablet 10/08 completed Not Available Not Available Not Available atomoxetine 40 mg capsule active Not Available Not Available Not Available nitrofurant oin monohydrate /macrocryst als 100 mg capsule 10/08 completed Not Available Not Available Not Available atomoxetine 80 mg capsule active Not Available Not Available Not Available calcium [...] completed Not Available Not Available Not Available clonidine HCl ER 0.1 mg tablet,exte nded release,12 hr active Not Available Not Available Not Available OneTouch [...] Date Recorded Body mass index (BMI) Body height Oxygen saturation Oxygen saturation in Arterial blood by Pulse oximetry Heart rate Body temperature Body weight Systolic blood pressure Diastolic blood pressure Provider Name and Address Organization Details Last Updated DateTime 2 44.1 kg/m2 167.64 cm 98 % 98 % 73 /min 95.9 [degF] 273772. 72 g 138 mm[Hg] 90 mm[Hg] Not Available [facility] 3 22:06:20 Date Recorded Body mass index (BMI) Heart rate Body height Oxygen saturation Oxygen saturation in Arterial blood by Pulse oximetry Heart rate Respiratory rate Body temperature Body weight Systolic blood pressure Diastolic blood pressure Provider Name and Address Organization Details Last Updated DateTime 2 44.4 kg/m2 99 /min 167.64 cm 96 % 96 % 99 /min 15 /min 97.9 [degF] 778450. 62 g 134 mm[Hg] 78 mm[Hg] Not Available [facility] 3 22:06:21 Date Recorded Body mass index (BMI) Heart rate Body height Oxygen saturation Oxygen saturation in Arterial blood by Pulse oximetry Heart rate Respiratory rate Body temperature Body weight Systolic blood pressure Diastolic blood pressure Provider Name and Address Organization Details Last Updated DateTime 2 43.4 kg/m2 95 /min 167.64 cm 98 % 98 % 95 /min 14 /min 97.7 [degF] 292319. 35 g 122 mm[Hg] 88 mm[Hg] Not Available [facility] 3 22:06:21 Date Recorded Body mass index (BMI) Heart rate Body height Oxygen saturation Oxygen saturation in Arterial blood by Pulse oximetry Heart rate Respiratory rate Body temperature Body weight Systolic blood pressure Diastolic blood pressure Provider Name and Address Organization Details Last Updated DateTime 3 44.4 kg/m2 89 /min 167.64 cm 97 % 97 % 89 /min 13 /min 98.3 [degF] 128228. 9 g 126 mm[Hg] 86 mm[Hg] Not Available [facility] 3 22:06:21 Date Recorded Body height Body mass index (BMI) Body weight Body temperature Oxygen saturation Oxygen saturation in Arterial blood by Pulse oximetry Systolic blood pressure Diastolic blood pressure Provider Name and Address Organization Details Last Updated DateTime 4 167.64 cm 39.9 kg/m2 002553. 75 g 98 [degF] 98 % 98 % 106 mm[Hg] 66 mm[Hg] Naa Stevenson MA [facility] 15:43:46 Date Recorded Heart rate Heart rate Respiratory rate Provider Name and Address Organization Details Last Updated DateTime 10/08/2023 101 /min 101 /min 15 /min Les Pace MD [address] [facility], [facility] [address], [place], [address], [employer] [facility] 10/08/2023 16:22:36 Social History Question Answer Notes LastModified by Organizat ion Details LastModified Time Tobacco Smoking Status Former Smoker Not Available [facility] 10/17/2022 22:05:46 What Is Your Level Of Caffeine Consumption? Occasional [id number] Information not available 10/17/2022 In The 14 Days Before Symptom Onset, Have You Had Close Contact With A Laboratory-confi rmed COVID-19 While That Case Was Ill? No [id number] Information not available 10/17/2022 In The 14 Days Before Symptom Onset, Have You Had Close Contact With A Person Who Is Under Investigation For COVID-19 While That Person Was Ill? No [id number].54135 [id number] Information not available 10/17/2022 What Type Of Diet Are You Following? REGULAR MIGRATION.61855 52225 Information not available 10/17/2022 Do You Have An Electrostatic Air Filter? No MIGRATION.59496 [id number] Information not available 10/17/2022 When Did You Quit Smoking? 1-5yearssincelastci yudith MIGRATION.36758 25842 Information not available 10/17/2022 Are There Any Guns Present In Your Home? No MIGRATION.83619 26005 Information not available 10/17/2022 Do You Have A Humidifier? No MIGRATION.38727 12480 Information not available 10/17/2022 Where Do You Live? [place] MIGRATION.04600 77189 Information not available 10/17/2022 Do You Have Moisture Problems In Your Home? Yes MIGRATION.94493 16717 Information not available 10/17/2022 What Was The Date Of Your Most Recent Tobacco Screening? 10/08/2023 estela Information not available 10/08/2023 Do You Have Any Pets? Yes MIGRATION.06569 86347 Information not available 10/17/2022 What Is Your Relationship Status? Information not available 10/08/2023 Do You Use Your Seat Belt Or Car Seat Routinely? Yes Information not available 10/08/2023 Do You Have Smoke And Carbon Monoxide Detectors In Your Home? No MIGRATION.55548 [id number] Information not available 10/17/2022 At What Age Did You Start Smoking Tobacco? 9 Information not available 10/08/2023 Are You Passively Exposed To Smoke? No MIGRATION.55181 57688 Information not available 10/17/2022 Do You Use Sunscreen Routinely? Yes MIGRATION.53681 44526 Information not available 10/17/2022 How Many Years Have You Smoked Tobacco? 8 Information not available 10/08/2023 Have You Recently Traveled Abroad? No MIGRATION.05635 28986 Information not available 10/17/2022 Sex: Unknown Functional Status Question Answer Note LastModified by Organizat ion Details LastModified Time Do you use any illicit or recreational drugs? No MIGRATION.433702 5682 Information not available 10/17/2022 Do you or have you ever used any other forms of tobacco or nicotine? No Information not available 10/08/2023 What is your level of alcohol consumption? Occasional MIGRATION.705958 7638 Information not available 10/17/2022 Do you or have you ever used smokeless tobacco? Never used smokeless tobacco MIGRATION.260476 6943 Information not available 10/17/2022 Have you been exposed to chemicals or toxins? not that aware of Information not available 10/08/2023 What is your occupation? none MIGRATION.241026 8340 Information not available 10/17/2022 Do you or have you ever used e-cigarettes or vape? Never used electronic cigarettes MIGRATION.444518 0765 Information not available 10/17/2022 Mental Status Question Answer Note LastModified by Organization D etails LastModified Time Do you feel stressed (tense, restless, nervous, or anxious, or unable to sleep at night)? [id number] Information not available 10/08/2023 Family History Relationship Description Onset Age of this Age Resolved Age Notes LastModified by Organization Details LastModified Time Father Hypertensive disorder MIGRATION.[id number] [id number] Not available 10/17/2022 22:05:57 Father Diabetes mellitus MIGRATION.746 [id number] Not available 10/17/2022 22:05:57 Maternal Grandmother Diabetes mellitus [id number].907 [id number] Not available 10/17/2022 22:05:57 Mother Epilepsy MIGRATION.[id number] Not available 10/17/2022 22:05:57 Medical History Condition Response THYROID DISEASE Y ANXIETY DISORDER Y DEPRESSION (INCLUDING POST ) Y HEARTBURN / REFLUX Y HYPERTENSION Y ASTHMA Y Gynecological HistoryNo gynecological history recorded. Obstetrics History GPAL:G 0 P 0 0 0 0 Past Encounters Encounter ID Performer Location Encounter Start Date Encounter Closed Date Diagnosis/Indication Diagnosis SNOMED-CT Code Diagnosis ICD10 Code Diagnosis Note [id number] MD ALEJO [facility] [address] [place] [id number] 02/28/2021 00:00:00 03/07/2021 15:18:03 [id number] Robert kurtz MD [facility] [address] [place] [id number] 03/14/2021 00:00:00 03/14/2021 13:30:23 [id number] MD [facility] [address] [place] [id number] 01/30/2022 00:00:00 01/30/2022 12:40:59 [id number] MD [facility] [address] [place] [id number] 03/27/2022 00:00:00 03/27/2022 10:24:14 [id number] MD MYESHA [facility] [id number] 06/04/2022 00:00:00 06/04/2022 10:17:53 [id number] MD MYESHA [facility] [phone] 06/18/2022 00:00:00 06/18/2022 11:11:02 [id number] Les Pace MD [facility] [address] [id number] 10/08/2022 00:00:00 10/08/2022 15:10:05 [id number] Les Pace MD Laila[facility] [address] [id number] 10/08/2023 15:33:52 10/09/2023 08:50:28 Obstructive sleep apnea syndrome 19705884 G47.33 Periodic l imb movement disorder 274408979 G47.61 Health Concerns Section Related Observation LastModified by Organization Detai ls LastModified Time None Recorded Concern Status LastModified by Organization Details LastModified Time None Recorded Advance Directives Directive None Recorded Payers Encounter Date Sequence Insurance Name Policy Number Policy Boggs Covered Member ID Boggs Member ID Guarantor Name 10/08/2023 1 [employer] (MEDICARE REPLACEMENT/AD VANTAGE - HMO) [id number] Cherish A Luter [id number] Cherish Luter 10/08/2023 2 [place] WHEN MEDICARE OR MEDICARE REPLACEMENT PRIMARY) Cherish N Luter [id number] Cherish Luter Notes Date Note Type Note Provider Name and Address Organization Details Recorded Time 10/08/2023 text/html Primary care/Ref erring provider: NYA Gates-DAGOBERTOuring the [facility] night 1 sleep study on 03/20/22, the [...] hose/mask condensation with water.The patient wears a [employer] medium Eson 2 nasal mask without chin [...] moderate chance of dozing. Les Pace MD [address] [facility], [facility] [address], [place], [address], [facility] 10/08/2023 16:23:09 OBGyn Episode No OBEpisode recorded.
--- OUTSIDE RECORDS SUMMARY | 2025-01-10 13:02 | XMS_ITS | Clinical Summary ---
Author Organization [facility] [address] [place] [address] Care Team Providers Care Comfort Advisor Name Role Phone Rosie Lincoln Primary Care Provider [phone] Allergies No known active allergies Medications metFORMIN [...] meds. Assessment & Plan (08/30/2020 4:34 PM TAPE TRANSFERRER): Recheck TSH, free T4 and adjust dose of levothyroxine accordingly I explained to the patient reported taking the medication in the mornings on an empty stomach 1 hour apart from food PCOS (polycystic ovarian syndrome) 08/30/2020 Assessment & Plan (03/21/2021 4:10 PM CDT): Diet and exercise Continue Metformin Assessment & Plan (08/30/2020 4:34 PM TAPE TRANSFERRER): Diet and exercise at the cornerstone of the treatment of PCOS with discussed Risk of progression to full blown diabetes also was discussed 30 to 45 minute daily aerobic and resistance exercise was advised Low-calorie low carb diet Continue metformin Resolved Problems Problem Noted Date Diagnosed Date Resolved Date Hyperprolactinemia (CMS/HCC) 08/30/2020 03/21/2021 Assessment & Plan (08/30/2020 4:33 PM TAPE TRANSFERRER): Could be related to hypothyroidism and /or [...] Liver disease PTSD (post-traumatic stress disorder) Hyperprolactinemia 08/30/2020 Family History Medical History Relation Name [...] on file Legal Sex Female 9:27 AM TAPE TRANSFERRER Gender Identity Not on file Sexual Orientation [...] Plan of Treatment Not on file [place] [address] [place] [address] Care Teams Comfort Advisor Relationship Specialty Start Date End Date Rosie Lincoln PA [address] [place] [address] PCP - General Physician Pattern Checker 03/21/21
[2025-01-10 13:26] VITALS: BP 152/88; PULSE 82; RESP 16; TEMP 36.6; O2SAT 100
[2025-01-10 13:33] LABS: Add Urine Microscopic? YES; Appearance Urine Clear (Clear); Bacteria Urine Rare /hpf; Bilirubin Urine Negative (Negative); Blood Urine Negative (Negative); Color Urine Yellow (Yellow); Glucose Urine UA Negative (Negative); Ketones Urine Negative (Negative); Leukocyte Esterase Ur Trace LEU/UL (Negative); Nitrate Urine Negative (Negative); Non Pathogenic Casts 0-2; Protein Urine Negative (Negative); Specific Grav Ur 1.015 (1.001-1.035); Squamous Epithelial Cell Urine Few /hpf (Few); WBC Urine 0-5 /hpf (0-3); pH Urine 6.5 (5.0-9.0)
--- NOTE | 2025-01-10 14:09 | ED.BACK ---
HPI - Back Pain/Injury General Chief Complaint: Back Pain/Injury Stated Complaint: back pain Time Seen by Provider: 01/10/25 13:54 History of Present Illness HPI Narrative: Patient is a 24-year-old female who presents to the complaints right-sided lower back pain and left lower quadrant abdominal pain. She reports she lifted something heavy on January 01, 2025, and is unsure whether or not she aggravated something in her back. Patient endorses a history blood pressure, prediabetes sepsis, issues, and degenerative disc disorder. Her last menstrual period was December 31, 2024. Patient's last bowel movement yesterday and was normal for her. She reports she has had more difficulty ambulating over the last past 2 days. Patient denies any alcohol, cigarette, or illicit drug use. She also denies any urinary symptoms, recent fevers, lower extremity edema, or chest pain. Related Data Home Medications ?Medication ?Instructions ?Recorded ?Confirmed ?Last Taken ?Type amlodipine 5 mg tablet 5 mg PO 08/27/23 10/08/23 Unknown History fluoxetine 40 mg capsule 40 mg PO 08/27/23 10/08/23 Unknown History fluticasone propionate 50 intranasal 08/27/23 10/08/23 Unknown History mcg/actuation nasal spray,suspension levothyroxine 100 mcg tablet 100 mcg PO 08/27/23 10/08/23 Unknown History lisinopril 40 mg tablet 40 mg PO 08/27/23 10/08/23 Unknown History prazosin 1 mg capsule 1 mg PO 08/27/23 10/08/23 Unknown History atomoxetine 40 mg capsule 40 mg PO 10/08/23 10/08/23 Unknown History Allergies Allergy/AdvReac Type Severity Reaction Status Date / Time No Known Allergies Allergy Verified 10/02/24 09:59 Review of Systems Review of Systems: All systems reviewed & are unremarkable except as noted in HPI and below PMFSH Past Medical History Medical History Hypothyroid Anxiety Depression Hypertension PCOS (polycystic ovarian syndrome) Surgical History Surgical History H/O wisdom tooth extraction History of delivery Family History Family History Mother Cervical cancer Grandparent Ovarian cancer Social History Social History Smoking status: Never smoker Alcohol intake: current Alcohol use details: rare Substance use: former Substance use type: marijuana Do You Feel Safe in your Home?: Yes Lack of Transportation: No Lack of Food: Never True Current Housing: I Have Housing Concerned About Future Housing: No Difficulty Paying Gas/Electric Bills: Decline to Answer Difficulty Paying for Meds: No Currently Unemployed: No Education: High School Diploma/GED Difficulty w/ Childcare or Family Care: No Living arrangements: with family Occupation/Education: unemployed Gender identity (if verbalized by the patient): Female Sexual Orientation (if Verbalized by the Patient): Straight or Heterosexual Exam Narrative: GENERAL: Well appearing, well-nourished, non-toxic, in no acute distress. HEAD: Normocephalic, atraumatic. NECK: Supple. No adenopathy, no masses. RESPIRATORY: Airway patent, respirations nonlabored. Clear to auscultation bilaterally, no rales, rhonchi, wheezing. CARDIOVASCULAR: Regular rate and rhythm without murmurs, rubs, or gallops. Peripheral pulses 2+ and equal bilaterally. +CVA tenderness R flank ABDOMINAL: Soft, tender LLQ, nondistended, no hepatosplenomegaly. Normoactive BS. MUSCULOSKELETAL: Moves all extremities. Strength/ROM intact without gross deformities. SKIN: Warm, dry, normal color. No rashes. NEURO: A&O X3. Speech clear. Cranial nerves II-XII intact. No ataxic movements. PSYCHIATRIC: Appropriate mood and affect. Normal interaction. Course Vital Signs Vital signs: Vital Signs Temperature 36.6 C 01/10/25 13:26 Pulse Rate 82 01/10/25 13:26 Respiratory Rate 16 01/10/25 13:26 Blood Pressure 152/88 H 01/10/25 13:26 Pulse Oximetry 100 01/10/25 13:26 Oxygen Delivery Room Air 01/10/25 13: Temperature 36.6 C 01/10/25 15:30 Pulse Rate 86 01/10/25 15:30 Respiratory Rate 18 01/10/25 15:30 Blood Pressure 148/90 H 01/10/25 15:30 Pulse Oximetry 98 01/10/25 15:30 Oxygen Delivery Room Air 01/10/25 13:26 MDM - Back Pain/Injury MDM Narrative Medical decision making narrative: Patient is a 24-year-old female who presents to the complaints right-sided lower back pain and left lower quadrant abdominal pain. She reports she lifted something heavy on January 01, 2025, and is unsure whether or not she aggravated something in her back. Patient endorses a history blood pressure, prediabetes sepsis, issues, and degenerative disc disorder. Her last menstrual period was December 31, 2024. Patient's last bowel movement yesterday and was normal for her. She reports she has had more difficulty ambulating over the last past 2 days. Patient denies any alcohol, cigarette, or illicit drug use. She also denies any urinary symptoms, recent fevers, lower extremity edema, or chest pain. Labs Ordered: CBC, CMP, troponin, lipase, INR, PTT, UDS, UA Imaging Ordered: CT abdomen pelvis Medications Ordered: 1 L normal saline IV bolus, Toradol 30 mg IV Results: Pt's CT scan indicates 1. No evidence of appendicitis, diverticulitis or intestinal obstruction. 2. Constipation. 3. Hepatomegaly with fat infiltration Diagnosis: Acute on chronic back pain (DDD), constipation, hepatomegaly Patient Education/Shared MDM: Results of lab work and imaging shared with patient. She endorses improvement of symptoms following medication administration. Patient strongly advised to maintain hydration status upon discharge and follow-up with their PCP as soon as possible. She will be discharged home with a prescription for steroids and Miralax. Strict return precautions provided. Patient verbalized understanding and is in agreement with plan. Vital signs stable at time of discharge. All questions answered. Differential Diagnosis Differential diagnosis: Likely lumbar radiculopathy, sciatica, strain of lumbar region and pyelonephritis Lab Data Attestation: I reviewed the patient's lab results. 01/10/25 14:20 01/10/25 14:20 Labs: Lab Results 01/10/25 01/10/25 01/10/25 Range/Units 13:25 14:20 14:54 WBC 6.3 (4.5-10.0) K/mm3 RBC 4.63 (4.2-5.4) M/mm3 Hgb 14.1 (12.0-15.0) g/dL Hct 40.2 (37.0-47.0) % MCV 86.8 (80-100) fl MCH 30.5 (26-34) pg MCHC 35.1 (32-36) g/dl RDW 12.2 (11.5-14.5) % Plt Count 262 (150-375) k/mm3 MPV 10.0 (7.4-10.4) fl Immature Gran % (Auto) 0.3 (0-0.5) % Neut % (Auto) 68.9 (45.5-73.1) % Lymph % (Auto) 22.4 (18.3-44.2) % [place] % (Auto) 6.0 (2.6-8.5) % Eos % (Auto) 1.6 (0-4.4) % Baso % (Auto) 0.8 (0.2-1.2) % Lymph # (Auto) 1.42 (0.9-3.2) K/mm3 [place] # (Auto) 0.4 (0.1-0.6) K/mm3 Eos # (Auto) 0.1 (0-0.3) K/mm3 Baso # (Auto) 0.1 (0.0-0.1) K/mm3 Abs Immat Gran (auto) 0.02 (0.00-0.031) K/mm3 Absolute Neuts (auto) 4.4 (1.3-6.7) K/mm3 Absolute Nucleated RBC 0.000 (0.0-0.012) K/mm3 Nucleated RBC % 0.0 (0.0-0.2) % PT 13.1 (11.1-14.7) Seconds INR 0.9 APTT 24.7 (22.3-36.8) Seconds Sodium 138 (137-145) mmol/L Potassium 3.8 (3.4-5.0) mmol/L Chloride 103 (98-107) mmol/L Carbon Dioxide 26 (22-30) mmol/L Anion Gap 9 (4-12) mmol/L BUN 11 (7-17) mg/dL Creatinine 0.72 (0.7-1.0) mg/dL Estim Creat Clear Calc Not Reportable Estimated GFR > 60 (59 - ) Glucose 111 H (65-110) mg/dL Calcium 9.2 (8.4-10.2) mg/dL Total Bilirubin 0.3 (0.2-1.3) mg/dL AST 38 H (14-36) U/L ALT 41 H (6-35) U/L Alkaline Phosphatase 91 (38-126) U/L Troponin I < 0.012 (0.000-0.034) ng/mL Total Protein 8.0 (6.3-8.2) g/dL Albumin 4.5 (3.5-5.1) g/dL Lipase 77 (23-300) U/L Urine Color Yellow (Yellow) Urine Appearance Clear (Clear) Urine pH 6.5 (5.0-9.0) Ur Specific [place] 1.015 (1.001-1.035) Urine Protein Negative (Negative) mg/dL Urine Glucose (UA) Negative (Negative) mg/dL Urine Ketones Negative (Negative) mg/dL Ur Blood (Man) Negative (Negative) Urine Nitrate Negative (Negative) Urine Bilirubin Negative (Negative) Urine Urobilinogen 1.0 (<2.0) mg/dL Leukocyte Esterase Rfl Trace H (Negative) FADY/UL Urine RBC 3-5 H (0-2) /hpf Urine WBC 0-5 (0-3) /hpf Ur Squamous Epith Cells Few (Few) /hpf Urine Bacteria Rare /hpf Urine Casts 0-2 POC Urine HCG, Qual Negative (Negative) Urine Opiates Screen Negative (Negative) Urine Methadone Screen Negative (Negative) Ur Barbiturates Screen Negative (Negative) Ur Phencyclidine Scrn Negative (Negative) Ur Amphetamine Screen Negative (Negative) U Benzodiazepines Scrn Negative (Negative) Urine Cocaine Screen Negative (Negative) U Cannabinoids Screen Negative (Negative) Imaging Data Attestation: I personally reviewed and interpreted this imaging study as follows: Radiologist's impression: Impressions Abdomen/Pelvis CT 01/10/25 15:30 IMPRESSION: 1. No evidence of appendicitis, diverticulitis or intestinal obstruction. 2. Constipation. 3. Hepatomegaly with fat infiltration Discharge Plan Discharge Clinical Impression: Strain of lumbar region, Constipation, Hepatomegaly, Lumbar radiculopathy Patient Disposition: Home Condition: Stable Instructions: Antibiotic Form, Constipation (ED), Back Pain (ED) Additional Instructions: Please return to the ER with any worsening symptoms. Follow-up with primary care provider as soon as possible. Take all medications as prescribed, including regularly scheduled medications. You may take Tylenol and ibuprofen for pain control. Steroids were prescribed today to help decrease inflammation. Remember to stay hydrated and take MiraLax as needed for constipation relief. Patient Language: Chadian Prescriptions: New prednisone 20 mg tablet 20 mg PO BID Qty: 10 0RF polyethylene glycol 3350 [Miralax] 17 gram/dose powder 17 g PO BID Qty: 238 0RF No Action atomoxetine 40 mg capsule 40 mg PO levothyroxine 100 mcg tablet 100 mcg PO prazosin 1 mg capsule 1 mg PO lisinopril 40 mg tablet 40 mg PO amlodipine 5 mg tablet 5 mg PO fluoxetine 40 mg capsule 40 mg PO fluticasone propionate 50 mcg/actuation spray,suspension intranasal ondansetron 4 mg tablet,disintegrating 4 mg PO Q8H PRN (Reason: nausea and vomiting) Qty: 12 0RF ibuprofen 600 mg tablet 600 mg PO TID PRN (Reason: pain) Qty: 20 0RF acetaminophen 500 mg capsule 1,000 mg PO Q6H PRN (Reason: pain) Qty: 20 0RF ondansetron 4 mg tablet,disintegrating 4 mg PO Q6-8H PRN (Reason: nausea and vomiting) Qty: 14 0RF norethindrone (contraceptive) 0.35 mg tablet 0.35 mg PO DAILY Qty: 84 3RF metformin 500 mg tablet See Rx Instructions .ROUTE .COMPLEX Qty: 90 2RF Dose Instruction: TAKE 1 TABLET BY MOUTH DAILY Rx Instructions: TAKE 1 TABLET BY MOUTH DAILY spironolactone 50 mg tablet See Rx Instructions .ROUTE .COMPLEX Qty: 180 2RF Dose Instruction: TAKE 1 TABLET BY MOUTH TWICE DAILY Rx Instructions: TAKE 1 TABLET BY MOUTH TWICE DAILY Follow-up/Referrals: Vik,NYA Cortez [Primary Care Provider] - Time of Disposition: 16:44
--- OUTSIDE RECORDS SUMMARY | 2025-01-10 14:12 | XMS_ITS | Clinical Summary ---
Author Organization [facility] Physician Office Building [address] [place] [id number] Care Team Providers Care Cable Operator Name Role Phone Rosie Lincoln Primary Care Provider [phone] Allergies No known active allergies Medications metFORMIN [...] meds. Assessment & Plan (08/30/2020 4:34 PM TODDLER TEACHER): Recheck TSH, free T4 and adjust dose of levothyroxine accordingly I explained to the patient reported taking the medication in the mornings on an empty stomach 1 hour apart from food PCOS (polycystic ovarian syndrome) 08/30/2020 Assessment & Plan (03/21/2021 4:10 PM CDT): Diet and exercise Continue Metformin Assessment & Plan (08/30/2020 4:34 PM TODDLER TEACHER): Diet and exercise at the cornerstone of the treatment of PCOS with discussed Risk of progression to full blown diabetes also was discussed 30 to 45 minute daily aerobic and resistance exercise was advised Low-calorie low carb diet Continue metformin Resolved Problems Problem Noted Date Diagnosed Date Resolved Date Hyperprolactinemia (CMS/HCC) 08/30/2020 03/21/2021 Assessment & Plan (08/30/2020 4:33 PM TODDLER TEACHER): Could be related to hypothyroidism and /or [...] on file Legal Sex Female 9:27 AM TODDLER TEACHER Gender Identity Not on file Sexual Orientation [...] Treatment Not on file [place] [address] [address] [place] [address] Care Teams Cable Operator Relationship Specialty Start Date End Date Rosie Lincoln PA [address] [place] [address] PCP - General Physician Environmental Sampler 03/21/21
--- OUTSIDE RECORDS SUMMARY | 2025-01-10 14:12 | XMS_ITS | Clinical Summary ---
Author Organization [facility] Address [address] [place] [address] Care Team Providers Care Building Inspector Name Role Phone Dana Chery PA-C Primary Care Provider [phone] Source Comments [facility],non-owned Affiliates and Associated Physician Practices is amultiple site organization consisting of ambulatory clinics and hospital sitesin [place], [place], [place] and [place]. This disclosure is being madepursuant to the Care Everywhere program and may not contain all information available regarding this patient. Last updated 18.[facility] Allergies No known active allergies Medications * [...] on file Legal Sex Female 3:03 PM CHAIN LINK FENCE INSTALLER Gender Identity Not on file Sexual Orientation Not on file Last Filed Vital Signs Vital Sign Reading Time Taken Comments Blood Pressure 135/86 06/29/2024 1:32 PM CHAIN LINK FENCE INSTALLER Pulse 69 06/29/2024 1:32 PM CHAIN LINK FENCE INSTALLER Temperature 35.9 C (96.7 F) 06/29/2024 1:32 PM CHAIN LINK FENCE INSTALLER Respiratory Rate 16 02/12/2024 11:21 AM CDT Oxygen Saturation 96% 06/29/2024 1:32 PM CHAIN LINK FENCE INSTALLER Inhaled Oxygen Concentration - - Weight 108.9 kg (240 lb) 06/29/2024 1:32 PM CHAIN LINK FENCE INSTALLER Height 167.6 cm (5' 6 ) 06/29/2024 1:32 PM CHAIN LINK FENCE INSTALLER Body Mass Index 38.74 06/29/2024 1:32 PM CHAIN LINK FENCE INSTALLER Plan of Treatment Health Maintenance Due Date [...] topic Insurance [employer] MEDICARE ADV Care Teams Building Inspector Relationship Specialty Start Date End Date Dana Chery PA-C [address] [place] [address] PCP - General 01/30/24
--- OUTSIDE RECORDS SUMMARY | 2025-01-10 14:12 | XMS_ITS | Referral Summary ---
Author Organization [facility] Physician Office Building [address] [place] [id number] Care Team Providers Care Molding Engineer Name Role Phone Rosie Lincoln Primary Care Provider [phone] Allergies No known active allergies Medications metFORMIN [...] meds. Assessment & Plan (08/30/2020 4:34 PM MICA WASHER GLUER): Recheck TSH, free T4 and adjust dose of levothyroxine accordingly I explained to the patient reported taking the medication in the mornings on an empty stomach 1 hour apart from food PCOS (polycystic ovarian syndrome) 08/30/2020 Assessment & Plan (03/21/2021 4:10 PM CDT): Diet and exercise Continue Metformin Assessment & Plan (08/30/2020 4:34 PM MICA WASHER GLUER): Diet and exercise at the cornerstone of the treatment of PCOS with discussed Risk of progression to full blown diabetes also was discussed 30 to 45 minute daily aerobic and resistance exercise was advised Low-calorie low carb diet Continue metformin Resolved Problems Problem Noted Date Diagnosed Date Resolved Date Hyperprolactinemia (CMS/HCC) 08/30/2020 03/21/2021 Assessment & Plan (08/30/2020 4:33 PM MICA WASHER GLUER): Could be related to hypothyroidism and /or [...] on file Legal Sex Female 9:27 AM MICA WASHER GLUER Gender Identity Not on file Sexual Orientation [...] Plan of Treatment Not on file Insurance [address] [address] [facility] RE[facility] Care Teams Molding Engineer Relationship Specialty Start Date End Date Rosie Lincoln PA [address] [place] [address] PCP - General Physician Landscape Photographer 03/21/21
[2025-01-10 14:30] VITALS: BP 148/86; PULSE 80; RESP 16; TEMP 36.6; O2SAT 98
[2025-01-10 14:30] LABS: Basophils Absolute Auto 0.1 K/mm3 (0.0-0.1); Basophils Percent Auto 0.8 % (0.2-1.2); Eosinophils Absolute Auto 0.1 K/mm3 (0-0.3); Eosinophils Percent Auto 1.6 % (0-4.4); Hematocrit 40.2 % (37.0-47.0); Hemoglobin 14.1 g/dL (12.0-15.0); Immature Granulocyte Absolute 0.02 K/mm3 (0.00-0.031); Immature Granulocyte Percent A 0.3 % (0-0.5); Lymphocytes Absolute Auto 1.42 K/mm3 (0.9-3.2); Lymphocytes Percent Auto 22.4 % (18.3-44.2); Mean Corpuscular HGB Conc 35.1 g/dl (32-36); Mean Corpuscular Hemoglobin 30.5 pg (26-34); Mean Corpuscular Volume 86.8 fl (80-100); Monocytes Absolute Auto 0.4 K/mm3 (0.1-0.6); Neutrophils Absolute Auto 4.4 K/mm3 (1.3-6.7); Neutrophils Percent Auto 68.9 % (45.5-73.1); Platelet Count Result 262 k/mm3 (150-375); Red Blood Count 4.63 M/mm3 (4.2-5.4); Red Cell Distribution Width 12.2 % (11.5-14.5); White Blood Count 6.3 K/mm3 (4.5-10.0)
[2025-01-10 14:39] LABS: INR 0.9; Prothrombin Time 13.1 Seconds (11.1-14.7)
[2025-01-10 14:40] LABS: Partial Thromboplastin Time 24.7 Seconds (22.3-36.8)
[2025-01-10] MEDS: KETOROLAC 30 MG/ML VIAL (*BKC) IV PUSH (14:40)
[2025-01-10] MEDS: SODIUM CHLORIDE 0.9% IV 1,000 ML 999 ML IV CONT (14:40)
[2025-01-10 14:44] LABS: Alanine Aminotransferase 41 U/L (6-35); Albumin Level 4.5 g/dL (3.5-5.1); Alkaline Phosphatase 91 U/L (38-126); Anion Gap 9 mmol/L (4-12); Aspartate Amino Transferase 38 U/L (14-36); Bilirubin,Total 0.3 mg/dL (0.2-1.3); Blood Urea Nitrogen 11 mg/dL (7-17); Calcium 9.2 mg/dL (8.4-10.2); Carbon Dioxide 26 mmol/L (22-30); Chloride 103 mmol/L (98-107); Estimated Glomerular Filt Rate > 60; Glucose 111 mg/dL (65-110); Lipase 77 U/L (23-300); Potassium 3.8 mmol/L (3.4-5.0); Sodium 138 mmol/L (137-145)
[2025-01-10 14:46] LABS: Amphetamine Screen Urine Negative (Negative); Barbiturate Screen Urine Negative (Negative); Benzodiazepines Screen Urine Negative (Negative); Cannabinoid Screen Urine Negative (Negative); Cocaine Screen Urine Negative (Negative); Methadone Screen Urine Negative (Negative); Opiate Screen Urine Negative (Negative); Phencyclidine Screen Urine Negative (Negative)
[2025-01-10 14:55] LABS: Troponin I < 0.012 ng/mL (0.000-0.034)
[2025-01-10 14:56] LABS: BEDSIDEPREGUCG Negative (Negative)
[2025-01-10 15:30] VITALS: BP 146/80; BP 148/90; PULSE 80; PULSE 86; RESP 16; RESP 18; TEMP 36.6; O2SAT 100; O2SAT 98
[2025-01-10] MEDS: predniSONE 20 MG TABLET 40 MG PO (16:24)
== END 2025-01-10 16:59 | disposition home or self-care (01) ==
PROVIDERS: Emergency Medicine; Emergency Provider Registered Nurse; PCP Physician Assistant
DX: S39.012A Strain of muscle, fascia and tendon of lower back, initial encounter (principal); K59.00 Constipation, unspecified; R16.0 Hepatomegaly, not elsewhere classified; M54.16 Radiculopathy, lumbar region; E03.9 Hypothyroidism, unspecified; F41.9 Anxiety disorder, unspecified; F32.A Depression, unspecified; I10 Essential (primary) hypertension; X50.0XXA Overexertion from strenuous movement or load, initial encounter
CPT/HCPCS: 36415; 74177; 80053; 80307; 81001; 81025; 83690; 84484; 85025; 85610; 85730; 96361; 96374; 99284; J1885; J7030; J7512; Q9967

== ENCOUNTER 2025-02-05 16:22 | Emergency (ER) | payer MEDICARE, MEDICAID, SELFPAY ==
[2025-02-05 16:55] VITALS: BP 168/88; PULSE 92; RESP 20; TEMP 36.4; O2SAT 100
--- NOTE | 2025-02-05 18:35 | ED.WOUNDLAC ---
HPI - Wound/Laceration General Chief Complaint: Wound/Laceration Stated Complaint: staph infection History of Present Illness HPI narrative: 24-year-old female presents emergency department for a rash. Patient states 8 days ago she was working on the yard, sat on the grass and then developed a rash to her buttocks and posterior thighs after coming in contact with what was on the ground. She states the rash was itchy. She went to urgent care 4 days ago and was given p.o. Decadron, discharged home with steroids and triamcinolone cream which he has been using. She states the steroids have been helping. Patient states she was talking with her friend today who is a nurse and looked at her legs and advised to come to the ER because she was worried she had sepsis. The patient denies any fever, vomiting or systemic signs of illness. She states the rash is not painful but is itching and is improving with steroids. Related Data Home Medications ?Medication ?Instructions ?Recorded ?Confirmed ?Last Taken ?Type amlodipine 5 mg tablet 5 mg PO 08/27/23 10/08/23 Unknown History fluoxetine 40 mg capsule 40 mg PO 08/27/23 10/08/23 Unknown History fluticasone propionate 50 intranasal 08/27/23 10/08/23 Unknown History mcg/actuation nasal spray,suspension levothyroxine 100 mcg tablet 100 mcg PO 08/27/23 10/08/23 Unknown History lisinopril 40 mg tablet 40 mg PO 08/27/23 10/08/23 Unknown History prazosin 1 mg capsule 1 mg PO 08/27/23 10/08/23 Unknown History atomoxetine 40 mg capsule 40 mg PO 10/08/23 10/08/23 Unknown History Allergies Allergy/AdvReac Type Severity Reaction Status Date / Time No Known Allergies Allergy Verified 02/05/25 16:58 Review of Systems Review of Systems: All systems reviewed & are unremarkable except as noted in HPI and below PMFSH Past Medical History Medical History Hypothyroid Anxiety Depression Hypertension PCOS (polycystic ovarian syndrome) Surgical History Surgical History H/O wisdom tooth extraction History of delivery Family History Family History Mother Cervical cancer Grandparent Ovarian cancer Social History Social History Smoking status: Never smoker Alcohol intake: current Alcohol use details: rare Substance use: former Substance use type: marijuana Do You Feel Safe in your Home?: Yes Lack of Transportation: No Lack of Food: Never True Current Housing: I Have Housing Concerned About Future Housing: No Difficulty Paying Gas/Electric Bills: Decline to Answer Difficulty Paying for Meds: No Currently Unemployed: No Education: High School Diploma/GED Difficulty w/ Childcare or Family Care: No Living arrangements: with family Occupation/Education: unemployed Gender identity (if verbalized by the patient): Female Sexual Orientation (if Verbalized by the Patient): Straight or Heterosexual Exam Narrative: GENERAL: Well-appearing, well-nourished, and in no acute distress. HEAD: Normocephalic, atraumatic. EYES: EOMI. ENT: Nares clear, no rhinorrhea or epistaxis. Mucous membranes moist. NECK: Supple. CHEST: Clear to auscultation. No respiratory distress. HEART: Regular rate and rhythm. No murmur heard. Normal peripheral pulses. EXTREMITIES: Normal range of motion. No edema. SKIN: Raised erythematous wheals to the posterior thighs. No warmth or drainage. No vesicles or bulla. Postinflammatory changes to the left popliteal fossa with overlying scaling. Negative [place]. No desquamation NEURO: No focal deficits. Alert and oriented x3 Course Vital Signs Vital signs: Vital Signs Temperature 97.5 F L 02/05/25 16:55 Pulse Rate 92 02/05/25 16:55 Respiratory Rate 02/05/25 16:55 Blood Pressure 168/88 H 02/05/25 16:55 Pulse Oximetry 100 02/05/25 16:55 Oxygen Delivery Room Air 02/05/25 16:55 Temperature 97.5 F L 02/05/25 16:55 Pulse Rate 92 02/05/25 16:55 Respiratory Rate 02/05/25 16:55 Blood Pressure 168/88 H 02/05/25 16:55 Pulse Oximetry 100 02/05/25 16:55 Oxygen Delivery Room Air 02/05/25 16:55 MDM - Wound/Laceration MDM Narrative Medical decision making narrative: 24-year-old female presents emergency department for rash. Patient was doing your were gait days ago and then sat in the grass and developed an itchy rash her posterior thighs where she came in contact with grass. She went to urgent care 4 days ago was started on topical steroids, prednisone and given p.o. Decadron an office. She has been compliant with these medications with improvement. Today she was speaking with a friend who is a nurse and told her she should come to the ER to make sure she is not septic. Vitals are stable other than elevated blood pressure. Patient is afebrile nontoxic appearing. Exam is consistent with healing contact/allergic dermatitis with some areas of postinflammatory changes. No evidence of secondary bacterial infection. Patient overall is very well appearing. Advised her to continue her course of treatment follow-up with her PCP. Also advised her to take [id number] Benadryl p.r.n. for itching. Discussed strict ED return precautions. She is agreeable with the plan and verbalized understanding. Discharged in stable condition. Discharge Plan Discharge Clinical Impression: Allergic dermatitis Patient Disposition: Home Condition: Stable Instructions: Antibiotic Form, Dermatitis (ED) Additional Instructions: Continue prednisone and triamcinolone. Take Benadryl over the counter as needed for itching. Follow up with your PCP. Return to the ER if the rash spreads, you develop a fever, vomiting. Patient Language: Tristanian Prescriptions: No Action atomoxetine 40 mg capsule 40 mg PO levothyroxine 100 mcg tablet 100 mcg PO prazosin 1 mg capsule 1 mg PO lisinopril 40 mg tablet 40 mg PO amlodipine 5 mg tablet 5 mg PO fluoxetine 40 mg capsule 40 mg PO fluticasone propionate 50 mcg/actuation spray,suspension intranasal ondansetron 4 mg tablet,disintegrating 4 mg PO Q8H PRN (Reason: nausea and vomiting) Qty: 12 0RF ibuprofen 600 mg tablet 600 mg PO TID PRN (Reason: pain) Qty: 20 0RF acetaminophen 500 mg capsule 1,000 mg PO Q6H PRN (Reason: pain) Qty: 20 0RF ondansetron 4 mg tablet,disintegrating 4 mg PO Q6-8H PRN (Reason: nausea and vomiting) Qty: 14 0RF prednisone 20 mg tablet 20 mg PO BID Qty: 10 0RF polyethylene glycol 3350 [Miralax] 17 gram/dose powder 17 g PO BID Qty: 238 0RF norethindrone (contraceptive) 0.35 mg tablet 0.35 mg PO DAILY Qty: 84 3RF metformin 500 mg tablet See Rx Instructions .ROUTE .COMPLEX Qty: 90 2RF Dose Instruction: TAKE 1 TABLET BY MOUTH DAILY Rx Instructions: TAKE 1 TABLET BY MOUTH DAILY spironolactone 50 mg tablet See Rx Instructions .ROUTE .COMPLEX Qty: 180 2RF Dose Instruction: TAKE 1 TABLET BY MOUTH TWICE DAILY Rx Instructions: TAKE 1 TABLET BY MOUTH TWICE DAILY Follow-up/Referrals: Vik,NYA Cortez [Primary Care Provider] -
== END 2025-02-05 18:40 | disposition home or self-care (01) ==
LOC: ANHED 18:43
PROVIDERS: Emergency Provider Physician Assistant; PCP Physician Assistant
DX: L23.9 Allergic contact dermatitis, unspecified cause (principal); E03.9 Hypothyroidism, unspecified; F41.8 Other specified anxiety disorders; I10 Essential (primary) hypertension
CPT/HCPCS: 99281